=== PATIENT | female | born 1970 | race Caucasian/White ===

== ENCOUNTER → 2016-12-16 | Outpatient (CLI) | payer BC ==
[2016-12-16 18:03] LABS: Anisocytosis Slight; Basophils % (A) 1 %; CH 29.8; CHCM 31.6; Eosinophils # (A) 0.1 k/uL (0-0.7); Eosinophils % (A) 2 %; HCT 39.2 % (34.0-46.0); HDW 2.78; HGB 12.5 gm/dL (11.4-16.0); Hypochromasia Slight; Luc # (Auto) 0.18; Luc % (Auto) 3; Lymphocytes # (A) 1.1 k/uL (1.0-4.8); Lymphocytes % (A) 19 %; MCH 30.2 pg (25.0-35.0); MCHC 31.9 g/dL (31.0-37.0); MCV 94.9 fL (80.0-100.0); Mean Platelet Volume 9.5; Monocytes # (A) 0.6 k/uL (0-1.0); Monocytes % (A) 10 %; Neutrophils % (A) 66 %; RBC 4.13 m/uL (3.80-5.40); RDW 16.7 % (11.5-15.5); WBC 6.1 k/uL (3.8-10.6); WBC (Perox) 6.22
== END | disposition home or self-care (01) ==
LOC: LABPAT 17:20
PROVIDERS: ATTEND Obstetrics & Gynecology Obstetrics
DX: Z01.812 Encounter for preprocedural laboratory examination (principal); N92.0 Excessive and frequent menstruation with regular cycle; D64.9 Anemia, unspecified
CPT/HCPCS: 85025

== ENCOUNTER 2016-12-19 11:27 | Day surgery (SDC) | payer BC ==
[2016-12-17 11:09] VITALS: BMI 50.8
[~2016-12-19 11:27] MED LIST: DEXAMETHASONE SOD PHOSPHATE 10 MG/ML 1 ML VIAL IV ONE; HYDROmorphone 0.5 MG/0.5 ML SYRINGE IVP PRN; LACTATED RINGERS 1,000 ML IV SCH; MIDAZOLAM 2 MG/2 ML VIAL IV PRN; ONDANSETRON 4 MG/2 ML VIAL IVP ONE; Pre Op ABX Message 1 EACH MISC MISCELLANE ONE; SCOPOLAMINE 1.5MG/72HR PATCH TRANSDERM ONE
[2016-12-19] MEDS ORDERED: LIDOCAINE 1% 20 ML VIAL (10MG/ML) FOR IV START INTRADERMA ONE (12:15)
[2016-12-19] MEDS ORDERED: PROPOFOL 10 MG/ML 20 ML VIAL IV ONE (12:32)
[2016-12-19] MEDS ORDERED: LIDOCAINE 1% INJ 10MG/ML (20 ML MDV) ONE (12:32)
[2016-12-19] MEDS ORDERED: SUCCINYLCHOLINE CHLORIDE 100 MG/5 ML SYR IV ONE (12:32)
[2016-12-19] MEDS ORDERED: GLYCOPYRROLATE 0.2 MG/ML 2 ML VIAL ONE (12:32)
[2016-12-19] MEDS ORDERED: fentaNYL (PF) 50 MCG/ML 2 ML AMP ONE (12:32)
[2016-12-19] MEDS ORDERED: MIDAZOLAM 2 MG/2 ML VIAL ONE (12:32)
[2016-12-19 12:38] LABS: INR 1.1 (<1.2); Prothrombin Time 11.3 sec (9.0-12.0)
[2016-12-19] MEDS ORDERED: ACETAMINOPHEN IV (For NPO) 1,000 MG in EMPTY BAG 1 BAG IVPB ONE (13:01)
[2016-12-19] MEDS ORDERED: Acetaminophen-Codeine 300-30mg TAB PO PRN ×2 (13:01)
[2016-12-19] MEDS ORDERED: IBUPROFEN 600 MG TAB PO PRN (13:01)
[2016-12-19] MEDS ORDERED: FLUTICASONE 50MCG/SPRAY NASAL 16GM EA NOSTRIL PRN (13:03)
--- NOTE | 2016-12-19 13:10 | P.OP ---
Date of Procedure: 12/19/16 Preoperative Diagnosis: menorrhagia, anemia Postoperative Diagnosis: same Procedure(s) Performed: Elías NEVAREZ EA novlena Anesthesia: CJ Surgeon: Brittany Liang Estimated Blood Loss (ml): 10 IV fluids (ml): 400 Urine output (ml): 75 Pathology: other (Endometrial curettings) Condition: stable Disposition: PACU Indications for Procedure: This is a very pleasant 46-year-old female with complaints of heavy menstrual bleeding, anemia. She elected treatment with endometrial ablation wrists were reviewed in the office including but not limited to uterine perforation, bleeding, infection patient stated understanding and informed consent was obtained Operative Findings: Normal appearing endometrial cavity was noted proliferative endometrium. Description of Procedure: Patient was taken to the operating room where general anesthesia was obtained without difficulty by the anesthesia department. She was then prepped and draped in normal sterile fashion in the dorsal lithotomy position. A red rubber catheter was then used to drain the bladder of clear yellow urine. A weighted speculum was placed in the posterior vaginal vault the anterior lip of the cervix was grasped with a single-tooth tenaculum. The endocervical canal was then dilated to approximately 17, the hysteroscope was placed through the cervix and toward the endometrial cavity. On inspection of the patient's endometrial cavity a proliferative endometrium was noted no fibroids or polyps were appreciated. The hysteroscope was removed along with a hysterotomy hysteroscopy fluid. A sharp curettage then performed until gritty texture was noted in all 4 quadrants of the endometrial cavity. This was sent to pathology for analysis. The NovaSure device was then inserted into the endometrial cavity and operated per pediatric physical therapy assistant's instructions. With a power of 69 for 1 minute 45 seconds. After the cycle was complete the device was allowed to cool slightly and was removed without difficulty. The single-tooth tenaculum was taken off of the anterior lip of the cervix hemostasis was appreciated. All instruments were removed from the vaginal vault, all counts were correct 2. patient tolerated procedure well and was taken to the recovery room awake and in stable condition
[2016-12-19 13:20] VITALS: TEMP 97.4
[2016-12-19 14:14] VITALS: RESP 18
[2016-12-19 14:35] VITALS: BP 139/91; PULSE 76
[2016-12-19] MEDS ORDERED: NON-FORMULARY DRUG (Glucosamine Sulfate 2,000 MG) PO SCH (21:00)
[2016-12-20] MEDS ORDERED: NON-FORMULARY DRUG (Omeprazole 20 MG) PO SCH (07:30)
[2016-12-20] MEDS ORDERED: NON-FORMULARY DRUG (Cyanocobalamin (Vitamin B-12) [Vitamin B-12] 1,000 MCG) PO SCH (09:00)
[2016-12-20] MEDS ORDERED: PARoxetine 20 MG TAB PO SCH (09:00)
[2016-12-20] MEDS ORDERED: VITAMIN E (DL,TOCOPHERYL ACET) 400 UNIT CAP PO SCH (09:00)
[2016-12-20] MEDS ORDERED: NON-FORMULARY DRUG (Omega-3 Fatty Acids/Fish Oil [Fish Oil 1,000 Mg Softgel] 1 EACH) PO SCH (09:00)
[2016-12-20] MEDS ORDERED: GABAPENTIN 400 MG CAP PO SCH (09:00)
[2016-12-20] MEDS ORDERED: IRON POLYSACCHARIDES COMPLEX 150 MG CAP PO SCH (09:00)
[2016-12-20] MEDS ORDERED: CHOLECALCIFEROL 1,000 UNIT TAB PO SCH (09:00)
[2016-12-20] MEDS ORDERED: NON-FORMULARY DRUG (Fexofenadine Hcl [Allegra Allergy] 180 MG) PO SCH (09:00)
== END 2016-12-19 14:51 | disposition home or self-care (01) ==
LOC: OR 11:27
PROVIDERS: ATTEND Obstetrics & Gynecology Obstetrics
DX: N84.0 Polyp of corpus uteri (principal); N92.0 Excessive and frequent menstruation with regular cycle; D64.9 Anemia, unspecified; K21.9 Gastro-esophageal reflux disease without esophagitis; J30.9 Allergic rhinitis, unspecified; Z68.43 Body mass index [BMI] 50.0-59.9, adult; E66.9 Obesity, unspecified; Z79.899 Other long term (current) drug therapy; Z87.891 Personal history of nicotine dependence; Z86.718 Personal history of other venous thrombosis and embolism; Z79.01 Long term (current) use of anticoagulants
CPT/HCPCS: 58563; 81025; 88305; 85610; J2250; J1100; J2405; J2001; J3010; J0131; J0330; J2704

== ENCOUNTER → 2018-03-19 | Outpatient (CLI) | payer BC ==
--- NOTE | 2018-03-19 13:55 | CONS ---
CONSULTATION DATE OF SERVICE: 03/19/2018 This 47-year-old lady has been evaluated in the sleep center for possible obstructive sleep apnea-hypopnea syndrome. HISTORY OF PRESENT ILLNESS/SLEEP WAKE EVALUATION: Patient usual sleep schedule from 1 to 2 a.m. until 9 to 10 a.m. on weekdays and from about 1 to 2 a.m. until 11 a.m. to 12 p.m. on weekends. She does have problem with falling asleep, has TV set in bedroom, prefers to sleep on the stomach position. She has loud snoring according to her and also according to him, she has episodes of stopped breathing during the sleep. The patient has symptoms of restless legs while falling asleep. She has jerking and kicking movements at night. Positive history of sleep talking and grinding teeth. In the morning, patient wakes up tired, has difficulties to pay attention, falling asleep during the day, has problems with memory, concentration, irritability, anxiety. [place] Sleepiness Scale significantly increased to 18. The patient takes up to 2 naps a day, usually around 5 p.m. No vivid dreams during naps. No history of hypnagogic hallucinations, sleep paralysis or cataplexy. PAST MEDICAL HISTORY: Positive for anxiety and acid reflux. Recently had been diagnosed with alpha 1 antitrypsin deficiency, tremor, thrombosis. PAST SURGICAL HISTORY: Uterus ablation, spleen renal artery shunt, bilateral knee surgeries, cholecystectomy. MEDICATIONS: Fexofenadine, gabapentin, lactulose, magnesium supplement, omeprazole, paroxetine, iron supplement, ,vitamin D and E supplements. SOCIAL HISTORY: Positive for smoking in the past about 1 pack for 10 years, quit around 20 years ago. Alcohol consumption none. FAMILY HISTORY: Hypertension, arthritis, lung problems, sleep apnea, snoring, insomnia, acid reflux, liver problem, diabetes, anemia, restless legs. REVIEW OF SYSTEMS: Multiple awakenings from sleep, snoring, episodes of stopped breathing during the sleep, sleepiness during the day. PHYSICAL EXAMINATION: During physical exam, lady without distress. VITAL SIGNS: BP 147/82, HR 66, RR 14, height 5 feet 0 inches, weight 273.8, body mass index 53.3, temperature 98.3, oxygen saturation at room air 97% HEENT: PERRLA, EOMI. Oropharynx extremely low position of soft palate. Mallampati IV. NECK: 14-1/2 inches in circumference. LUNGS: Clear to percussion and to auscultation. Good air exchange. No wheezing or rhonchi. HEART: A very soft systolic murmur on pulmonary artery. ABDOMEN: Obese. Large horizontal scar on the belly. EXTREMITIES: No clubbing or cyanosis. [employer]: Awake, alert, and oriented X3. Cranial nerves 2 to 7 intact. There is no fasciculation or atrophy. noted. No focal deficits observed. IMPRESSION: 1. Snoring, witnessed episodes of stopped breathing during the sleep, extremely low position of soft palate, sleepiness, obstructive sleep apnea-hypopnea syndrome. 2. Restless legs syndrome. 3. Significant amount of movements during the sleep with kicking and twitching, periodic limb movements. 4. Significant excessive daytime sleepiness with 2 naps during the day. 5. Morbid obesity, body mass index 53.3. 6. Anxiety. 7. Acid reflux. 8. Status post bilateral knee surgery. 9. Alpha 1 antitrypsin deficiency. 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 11.Status post cholecystectomy. 12.Status post uterus ablation. 13.History of iron deficiency anemia. PLAN: 1. Polysomnography for evaluation of patient's breathing during sleep and also to check for periodic limb movements. 2. CPAP/BiPAP titration if sleep study confirms obstructive sleep apnea-hypopnea syndrome. 3. Preferable position during sleep on the side. 4. No driving if patient feels any sleepiness. 5. I will see patient for follow up visit to explain results of testing and following plan. Thank you very much for referring this patient for consultation. Sincerely, Kentrell Rosen MD, PhD, FAASM Diplomat of [place] [employer] Specialties [place] [employer] Sleep Tech of [facility] [place] MMODL / IJN: [id number] /
== END ==
LOC: SLEEP 11:26
PROVIDERS: ATTEND Internal Medicine
DX: G47.33 Obstructive sleep apnea (adult) (pediatric) (principal); E66.01 Morbid (severe) obesity due to excess calories; F41.9 Anxiety disorder, unspecified; K21.9 Gastro-esophageal reflux disease without esophagitis; E88.01 Alpha-1-antitrypsin deficiency; G25.81 Restless legs syndrome; Z90.49 Acquired absence of other specified parts of digestive tract; Z86.2 Personal history of diseases of the blood and blood-forming organs and certain disorders involving the immune mechanism; Z98.890 Other specified postprocedural states; Z87.898 Personal history of other specified conditions; Z68.43 Body mass index [BMI] 50.0-59.9, adult; Z99.89 Dependence on other enabling machines and devices; Z87.891 Personal history of nicotine dependence; Z79.899 Other long term (current) drug therapy
CPT/HCPCS: 99211

== ENCOUNTER → 2018-07-02 | Outpatient (CLI) | payer BC ==
--- NOTE | 2018-07-02 13:14 | SFUN ---
SLEEP CENTER FOLLOW UP NOTE DATE OF SERVICE: 07/02/2018 This 47-year-old lady had been followed in sleep center to discuss results of the sleep study and following plan. Polysomnogram showed minimal respiratory abnormalities with the apnea-hypopnea index 4.5 without significant oxygen desaturation. Oxygen level was below normal only for 0.6 minutes. At the same time in REM sleep, Apnea-hypopnea index was slightly increased to 11.8. EMG showed 20.0 periodic limb movements per hour of 2.1 microarousals per hour and patient report some discomfort in her legs while she is falling asleep and also during the night. Multiple sleep latency test on the following day consisted from 5 naps. Mean sleep latency was short 6.7 minutes. The patient fell asleep on all naps. No sleep onset REM periods have been documented. [place] Sleepiness Scale today significantly increased to 16. MEDICATIONS: Fexofenadine, gabapentin, magnesium, omeprazole, paroxetine, iron supplement. PHYSICAL EXAMINATION: During physical exam, patient in no distress. VITAL SIGNS: BP 129/82, HR 82, RR 18, height 5 feet, weight 281.6 pounds, body mass index 54.8, temperature 98.3, oxygen saturation at room air 96%. HEENT: PERRLA, EOMI. Oropharynx low position of soft palate. NECK: Supple, no JVD. Thyroid is not palpable. LUNGS: Clear to percussion and to auscultation. Good air exchange. No wheezing or rhonchi. HEART: S1, S2 regular. No murmurs, gallops, or rubs. ABDOMEN: Obese. EXTREMITIES: No clubbing or cyanosis. CHAR FILTER OPERATOR HELPER: Awake, alert, and oriented X3. Cranial nerves 2 to 7 intact. There is no fasciculation or atrophy. noted. No focal deficits observed. IMPRESSION: 1. Very minimal respiratory abnormalities during the sleep study in normal range by today's criteria but still apnea-hypopnea index slightly increased in REM sleep. 2. Mild periodic limb movements have been documented during the sleep study 20 times per hour with 2.1 microarousals per hour. 3. Multiple sleep latency test confirmed sleepiness. Mean sleep latency short 6.7 minutes. No sleep onset REM periods have been documented. 4. Obesity. 5. Anxiety. 6. Acid reflux. 7. Status post bilateral knee surgery. 8. Alpha 1 antitrypsin deficiency. 9. Status post spleen renal shunt. 10.Status post cholecystectomy. 11.Status post uterus ablation. 12.History of iron deficiency anemia. PLAN: 1. I will start the patient with treatment with Mirapex 0.125 mg 1 to 2 tablets at bedtime for treatment of restless legs syndrome and periodic limb movements. 2. I will see patient for followup visit in 2 to 3 months to evaluate her clinical response and treatment and at that time we will make a decision about the necessity to use any additional daytime medication for improving alertness. 3. Losing weight. 4. Preferable position during the sleep on the side. 5. No driving if feeling sleepiness. Thank you very much for allowing me to participate in management of your patient. Sincerely, Kentrell Rosen MD, PhD, FAASM Diplomat of [place] [employer] [place] [employer] Machine Operator of [facility] [place] MMODL / WESTN: [id number] /
== END ==
LOC: SLEEP 11:31
PROVIDERS: ATTEND Internal Medicine
DX: G47.61 Periodic limb movement disorder (principal); E66.9 Obesity, unspecified; F41.9 Anxiety disorder, unspecified; K21.9 Gastro-esophageal reflux disease without esophagitis; E88.01 Alpha-1-antitrypsin deficiency; D50.9 Iron deficiency anemia, unspecified; Z98.890 Other specified postprocedural states; Z90.49 Acquired absence of other specified parts of digestive tract; Z96.89 Presence of other specified functional implants; Z79.899 Other long term (current) drug therapy; Z68.43 Body mass index [BMI] 50.0-59.9, adult

== ENCOUNTER → 2019-10-12 | Outpatient (CLI) | payer BC | END | disposition home or self-care (01) | LOC: LABWHC1 11:49 | PROVIDERS: ATTEND Internal Medicine | DX: U07.1 COVID-19 (principal) | CPT/HCPCS: U0003; C9803 ==

== ENCOUNTER 2022-10-19 21:14 | Emergency (ER) | payer BC ==
[2022-10-19 21:23] VITALS: BP 139/84; PULSE 91; RESP 18; TEMP 98.4
[2022-10-19] MEDS ORDERED: SODIUM CHLORIDE 0.9% 500 ML 500 ML IV STA (21:44)
[2022-10-19] MEDS ORDERED: MORPHINE SULFATE 4 MG/ML SYRINGE IVP STA ×2 (21:46→22:58)
[2022-10-19 22:18] LABS: Basophils % (A) 0 %; Eosinophils # (A) 0.2 k/uL (0-0.7); Eosinophils % (A) 2 %; HCT 38.6 % (34.0-46.0); HGB 13.5 gm/dL (11.4-16.0); Lymphocytes % (A) 11 %; MCH 33.2 pg (25.0-35.0); MCHC 34.9 g/dL (31.0-37.0); MCV 95.3 fL (80.0-100.0); Mean Platelet Volume 9.1; Monocytes # (A) 1.1 k/uL (0-1.0); Monocytes % (A) 13 %; Neutrophils # (A) 6.1 k/uL (1.3-7.7); Neutrophils % (A) 71 %; Platelet Count 153 k/uL (150-450); RBC 4.05 m/uL (3.80-5.40); WBC 8.6 k/uL (3.8-10.6)
[2022-10-19 22:28] LABS: ALT 54 U/L (4-34); AST 57 U/L (14-36); African American GFR (CKD) >90 (>60 ml/min/1.73 sqM); Albumin 3.7 g/dL (3.5-5.0); Alkaline Phosphatase 112 U/L (38-126); Anion Gap 6 mmol/L; Blood Urea Nitrogen 22 mg/dL (7-17); Calcium 9.6 mg/dL (8.4-10.2); Carbon Dioxide 26 mmol/L (22-30); Chloride 103 mmol/L (98-107); Glucose 105 mg/dL (74-99); Non-African American GFR(CKD) 84 (>60 ml/min/1.73 sqM); Potassium 4.1 mmol/L (3.5-5.1); Sodium 135 mmol/L (137-145); Total Bilirubin 2.1 mg/dL (0.2-1.3); Total Protein 7.3 g/dL (6.3-8.2)
--- NOTE | 2022-10-19 22:32 | CT ---
EXAMINATION TYPE: CT brain wo con DATE OF EXAM: 10/19/2022 COMPARISON: None INDICATION: Trauma DLP: 1172.4 mGycm, Automated exposure control for dose reduction was used. CONTRAST: None CT of the brain is performed utilizing 3 mm thick sections through the posterior fossa and 3 mm thick sections through the remaining calvarium. Study is performed within 24 hours of arrival to the hosp ital. No abnormal hyperdensity is present to suggest an acute intracranial hemorrhage. No mass lesion is evident. No acute infarcts are evident. Ventricles and sulci are appropriate for the patient age. Small retention cyst within the left posterior lateral maxillary sinus. Paranasal sinuses are otherwi se clear. No acute fractures are evident. Mastoid air cells are clear. Note is made to left septal de viation. IMPRESSIONS: 1. No acute posttraumatic changes. Follow up MRI can be performed as clinically indicated
--- NOTE | 2022-10-19 22:53 | XR ---
EXAMINATION TYPE: XR knee limited LT DATE OF EXAM: 10/19/2022 COMPARISON: None HISTORY: Fall, pain TECHNIQUE: 2 view left knee FINDINGS: There is been a prior medial compartment prosthesis placement. Some mild narrowing lateral compartment joint space is present. No acute fractures are evident. Joint effusion is evident. Follow up exams can be performed 7-10 days from acute trauma for continued pain. IMPRESSION: 1. No acute osseous abnormality
--- NOTE | 2022-10-19 22:55 | XR ---
EXAMINATION TYPE: XR pelvis AP view DATE OF EXAM: 10/19/2022 COMPARISON: None HISTORY: Trauma fall pain TECHNIQUE: AP pelvis FINDINGS: Femoral heads articulate with the acetabulum. Sacroiliac joints and symphysis pubis appear intact. No acute fractures are evident. Normal bowel gas is present IMPRESSION: 1. No acute osseous abnormality AP pelvis
--- NOTE | 2022-10-19 22:56 | XR ---
EXAMINATION TYPE: XR humerus LT DATE OF EXAM: 10/19/2022 COMPARISON: None HISTORY: Fall, pain TECHNIQUE: 2 view left humerus FINDINGS: There is a long oblique fracture with additional small fragment at the fracture site within the mid diaphysis left humerus. Alignment and positioning appears relatively preserved. An additiona l longitudinal fracture line extends towards the neck of the humerus. IMPRESSION: 1. Comminuted fracture proximal to mid humerus diaphysis.
--- NOTE | 2022-10-19 22:56 | XR ---
EXAMINATION TYPE: XR chest 1V portable DATE OF EXAM: 10/19/2022 COMPARISON: None INDICATION: Trauma fall pain TECHNIQUE: Single frontal view of the chest is obtained. FINDINGS: The heart size is enlarged. The pulmonary vasculature is normal. The lungs are clear. IMPRESSION: 1. No acute pulmonary process. 2. Cardiomegaly
[2022-10-19 23:50] LABS: INR 1.1 (<1.2); Prothrombin Time 11.9 sec (9.0-12.0)
[2022-10-19 23:53] LABS: Partial Thromboplastin Time 20.9 sec (22.0-30.0)
[2022-10-20] MEDS ORDERED: MORPHINE SULFATE 4 MG/ML SYRINGE IVP STA (00:25)
--- NOTE | 2022-10-20 01:14 | ED ---
General Adult HPI - General Chief complaint: Extremity Injury, Upper Stated complaint: Fall Time Seen by Provider: 10/19/22 21:24 Source: patient, RN notes reviewed, old records reviewed Mode of arrival: EMS - History of Present Illness Initial comments: Patient is a 52-year-old female who presents emergency Department after mechanical fall. States she lost her balance and fell into a wall hitting her head on the wall and landed on the ground on her outstretched time. Primarily complaining of left upper arm pain but is also complaining of some mild left knee pain, left hip pain. Did strike her head but denies any injuries. Does not believe she lost consciousness. His no longer on blood thinners. His no other acute complaints at this time. Denies chest pain or shortness of breath. Denies nausea or vomiting. Endorses pain primarily in the left upper arm. No sensory deficits. Weakness of the left upper extremity secondary to the pain. Presents for further evaluation at this time. Denies any back pain. - Related Data Home Medications Medication Instructions Recorded Confirmed Cholecalciferol [Vitamin D3] 4,000 unit PO DAILY 12/17/16 12/19/16 Cyanocobalamin (Vitamin B-12) 1,000 mcg PO DAILY 12/17/16 12/19/16 [Vitamin B-12] Fexofenadine HCl [Ann Marie Allergy] 180 mg PO DAILY 12/17/16 12/19/16 Fluticasone Nasal [place] [Flonase 2 spr EA NOSTRIL DAILY PRN 12/17/16 12/19/16 Nasal [place]] Gabapentin [Neurontin] 400 mg PO QAM 12/17/16 12/19/16 Gabapentin [Neurontin] 800 mg PO HS 12/17/16 12/19/16 Glucosamine Sulfate 2,000 mg PO BID 12/17/16 12/19/16 Iron Polysaccharides Complex 150 mg PO DAILY 12/17/16 12/19/16 [Niferex Forte 150] [place]-3 Fatty Acids/Fish Oil [Fish 1 each PO DAILY 12/17/16 12/19/16 Oil 1,000 mg Softgel] Omeprazole [PriLOSEC] 20 mg PO AC-BRKFST 12/17/16 12/19/16 PARoxetine [Paxil] 20 mg PO DAILY 12/17/16 12/19/16 Vitamin E (Dl,Tocopheryl Acet) 400 unit PO DAILY 12/17/16 12/19/16 [Vitamin E] Warfarin [Coumadin] 5 mg PO DAILY 12/17/16 12/19/16 Previous Rx's Medication Instructions Recorded Cyclobenzaprine [Flexeril] 5 mg PO TID PRN 5 Days #15 tablet 10/20/22 HYDROcodone/APAP 5-325MG [[place] 1 tab PO Q6HR PRN 3 Days #12 tab 10/20/22 5-325] Allergies Allergy/AdvReac Type Severity Reaction Status Date / Time No Known Allergies Allergy Verified 10/19/22 21:23 Review of Systems ROS Statement: Those systems with pertinent positive or pertinent negative responses have been documented in the HPI. Review of Systems: CONST: Denies fever EYES: Denies blurry vision ENT: Denies nasal congestion C/V: Denies Chest pain RESP: Denies shortness of breath GI: Denies abdominal pain : Denies dysuria SKIN: Denies rash. MSK: Endorses joint pain NEURO: Denies headache ROS Other: All systems not noted in ROS Statement are negative. 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 HAS ENLARGED SPLEEN, HAS INTERNAL NERVE PAIN D/T THIS. HEAVY & IRREG MENSES, ANEMIA; HAD IRON INFUSIONS X2 11/28, 12/05/16. History of Any Multi-Drug Resistant Organisms: None Reported Past Surgical History: Cholecystectomy, Joint Replacement Additional Past Surgical History / Comment(s): PARTIAL MATTHEW KNEE REPLACEMENT. Past Anesthesia/Blood Transfusion Reactions: Motion Sickness, Postoperative Nausea & Vomiting (PONV) Past Psychological History: Anxiety Smoking Status: Former smoker Past Alcohol Use History: None Reported Past Drug Use History: None Reported - Past Family History Mother Family Medical History: Blood Disorder Additional Family Medical History / Comment(s): LEIDEN FACTOR Sister(s) Family Medical History: Blood Disorder Additional Family Medical History / Comment(s): LEIDEN FACTOR General Exam - General Exam Comments Initial Comments: General: Appears in moderate distress secondary to pain. HEAD: Normal with no signs of head trauma. Negative saldana sign. Negative rac coon eyes. EYES: PERRLA, EOMI, conjunctiva normal, no discharge. ENT: Hearing grossly intact, normal oropharynx. RESPIRATORY: Clear breath sounds bilaterally. No wheezes, rales, or rhonchi. C/V: Regular rate and rhythm. S1 and S2 auscultated, no edema, peripheral pulses 2+ and intact throughout ABD: Abd is soft, nontender, nondistended EXT: Decreased range of motion on the left upper extremity secondary to pain. Concern for humerus fracture. Difficult to ascertain if there is an obvious deformity to the patient's body habitus. Neurovascular intact distal to the injury. Splint is in place from EMS. Pelvis is stable. No midline cervical, thoracic, lumbar spine tenderness to palpation. Mild tenderness palpation over the left hip and left knee.left Median, radial, ulnar nerves appear intact. Strong 2+ pulses in the radial artery on the left. SKIN: No rashes or lesions observed on exposed skin. NEURO: Alert and oriented x 4. Cranial nerves II-XII intact. No focal sensory o r strength deficits. GCS of 15. Course Vital Signs 10/19/22 21:18 Temperature 98.4 F Pulse Rate 91 Respiratory 18 Rate Blood Pressure 139/84 O2 Sat by Pulse 96 Oximetry Procedures - Orthopedic Splinting/Casting Injury #1 Side: left Upper Extremity Injury Location: long arm Upper Extremity Immobilizer: sling/shoulder immobilizer Medical Decision Making - Medical Decision Making Was pt. sent in by a medical professional or institution ([facility], [employer], urgent care, hospital, or half-way...) When possible be specific @ -No Did you speak to anyone other than the patient for history (EMS, parent, family, police, friend...)? What history was obtained from this source @ -No Did you review nursing and triage notes (agree or disagree)? Why? @ -I reviewed and agree with nursing and triage notes Were old charts reviewed (outside hosp., previous admission, EMS record, old EKG, old radiological studies, urgent care reports/EKG's, half-way records)? Report findings @ -No old charts were reviewed Differential Diagnosis (chest pain, altered mental status, abdominal pain women, abdominal pain men, vaginal bleeding, weakness, fever, dyspnea, syncope, heada bubba, dizziness, GI bleed, back pain, seizure, CVA, palpatations, mental health, musculoskeletal)? @ -Differential Musculoskeletal Muscular strain, contusion, ligament sprain, fracture, arthritis, septic arthritis, bursitis, cellulitis, muscle spasm, nerve compression, DVT, arterial occlusion, herpes zoster, electrolyte abnormality, tumor.... This is not meant to be in all inclusive list EKG interpreted by me (3pts min.). @ -None done X-rays interpreted by me (1pt min.). @ -X-rays remarkable for left mid shaft comminuted humerus fracture. Remainder the plain films unremarkable for any obvious acute injury CT interpreted by me (1pt min.). @ -CT brain reveals no obvious acute intracranial process or injury. U/S interpreted by me (1pt. min.). @ -None done What testing was considered but not performed or refused? (CT, X-rays, U/S, labs)? Why? @ -None What meds were considered but not given or refused? Why? @ -None Did you discuss the management of the patient with other professionals (professionals i.e. , PA, [employer], lab, RT, psych nurse, social insurance specialist, immigration lawyer, teacher, county health officer, director of casework department)? Give summary @ -No Was smoking cessation discussed for >3mins.? @ -No Was critical care preformed (if so, how long)? @ -No Were there social determinants of health that impacted care today? How? (Homelessness, low income, unemployed, alcoholism, drug addiction, transportation, low edu. Level, literacy, decrease access to med. care, skilled nursing, rehab)? @ -No Was there de-escalation of care discussed even if they declined (Discuss DNR or withdrawal of care, Hospice)? DNR status @ -No What co-morbidities impacted this encounter? (DM, HTN, Smoking, COPD, CAD, Cancer, CVA, ARF, Chemo, Hep., AIDS, mental health diagnosis, sleep apnea, morbid obesity)? @ -None Was patient admitted / discharged? Hospital course, mention meds given and route, prescriptions, significant lab abnormalities, going to OR and other pertinent info. @ -Based on the patient's presentation and physical exam, I'm concerned for possible injury from the fall. We will obtain CT brain as well as plain films. Basic labs also be obtained. Patient was in agreement this plan. She was administered IV morphine for analgesic medications as well as a small fluid bolus. Imaging remarkable for a left comminuted midshaft humeral fracture. Patient's labs are remarkable for no obvious acute findings. I discussed results with the patient. She is given additional analgesic medications. Attempts at a co aptation splint were placed on the patient's left upper extremity although it is difficult secondary to her body habitus. She tolerated the procedure well. Neurovascular intact following the procedure. Placed in a sling. Instructions to follow up with orthopedics. She was in agreement this plan. I will provide the patient with a prescription for [place], Flexeril. I instructed the patient to follow up with their PCP in the next 1-3 days. I provided contact information for follow up with orthopedics. I explained that the patient should return to the emergency department if they experience any worsening symptoms. Strict return precautions were discussed with the patient. The patient expressed understanding of these instructions. I answered all questions that the patient had. The patient was discharged home in fair condition with their prescriptions and follow up information. Undiagnosed new problem with uncertain prognosis? @ -No Drug Therapy requiring intensive monitoring for toxicity (Heparin, Nitro, Insulin, Cardizem)? @ -No Were any procedures done? @ -Splinting Diagnosis/symptom? @ -Fall, left mid shaft comminuted humeral fracture Acute, or Chronic, or Acute on Chronic? @ -Acute Uncomplicated (without systemic symptoms) or Complicated (systemic symptoms)? @ -Complicated Side effects of treatment? @ -No Exacerbation, Progression, or Severe Exacerbation? @ -No Poses a threat to life or bodily function? How? (Chest pain, USA, CT, pneumonia, PE, COPD, DKA, ARF, appy, cholecystitis, CVA, Diverticulitis, Homicidal, Suicidal, threat to staff... and all critical care pts) @ -No - Lab Data Result diagrams: 10/19/22 22:09 10/19/22 22:09 Lab Results 10/19/22 10/19/22 10/19/22 Range/Units 22:09 22:09 23:08 WBC 8.6 (3.8-10.6) k/uL RBC 4.05 (3.80-5.40) m/uL Hgb 13.5 (11.4-16.0) gm/dL Hct 38.6 (34.0-46.0) % MCV 95.3 (80.0-100.0) fL MCH 33.2 (25.0-35.0) pg MCHC 34.9 (31.0-37.0) g/dL RDW 14.0 (11.5-15.5) % Plt Count 153 (150-450) k/uL MPV 9.1 Neutrophils % 71 % Lymphocytes % 11 % Monocytes % 13 % Eosinophils % 2 % Basophils % 0 % Neutrophils # 6.1 (1.3-7.7) k/uL Lymphocytes # 1.0 (1.0-4.8) k/uL Monocytes # 1.1 H (0-1.0) k/uL Eosinophils # 0.2 (0-0.7) k/uL Basophils # 0.0 (0-0.2) k/uL PT 11.9 (9.0-12.0) sec INR 1.1 (<1.2) APTT 20.9 L (22.0-30.0) sec Sodium 135 L (137-145) mmol/L Potassium 4.1 (3.5-5.1) mmol/L Chloride 103 (98-107) mmol/L Carbon Dioxide 26 (22-30) mmol/L Anion Gap 6 mmol/L BUN 22 H (7-17) mg/dL Creatinine 0.81 (0.52-1.04) mg/dL Est GFR (CKD-EPI)AfAm >90 (>60 ml/min/1.73 sqM) Est GFR (CKD-EPI)NonAf 84 (>60 ml/min/1.73 sqM) Glucose 105 H (74-99) mg/dL Calcium 9.6 (8.4-10.2) mg/dL Total Bilirubin 2.1 H (0.2-1.3) mg/dL AST 57 H (14-36) U/L ALT 54 H (4-34) U/L Alkaline Phosphatase 112 (38-126) U/L Total Protein 7.3 (6.3-8.2) g/dL Albumin 3.7 (3.5-5.0) g/dL Disposition Clinical Impression: Left humeral fracture, Fall Disposition: HOME SELF-CARE Condition: Fair Instructions (If sedation given, give patient instructions): Arm Fracture in Adults (ED) Prescriptions: Cyclobenzaprine [Flexeril] 5 mg PO TID PRN 5 Days #15 tablet PRN Reason: Pain HYDROcodone/APAP 5-325MG [[place] 5-325] 1 tab PO Q6HR PRN 3 Days #12 tab PRN Reason: Pain Is patient prescribed a controlled substance at d/c from ED?: Yes When asked, does pt state using other controlled substances?: Yes If prescribed controlled substance>3 days was MAPS reviewed?: Prescribed <3 Days If opioid is for acute pain is fill amount 7 days or less?: Yes If Rx opioid, was Start Talking consent form obtained?: Yes Referrals: Nato Beck MD [Primary Care Provider] - 1-2 days Jair Baker MD [Medical Doctor] - 1-2 days Time of Disposition: 01:00
[2022-10-20] MEDS ORDERED: ACET/COD 300 MG/30 MG STARTER PACK 6 TAB BTL PO STA (01:33)
== END 2022-10-20 01:43 | disposition home or self-care (01) ==
LOC: EC 21:14
DX: S42.202A Unspecified fracture of upper end of left humerus, initial encounter for closed fracture (principal); I51.7 Cardiomegaly; K21.9 Gastro-esophageal reflux disease without esophagitis; Z86.59 Personal history of other mental and behavioral disorders; Z87.891 Personal history of nicotine dependence; Z79.899 Other long term (current) drug therapy; W18.09XA Striking against other object with subsequent fall, initial encounter
CPT/HCPCS: 99285; 96374; 96376 ×2; 96361 ×2; 36415; 80053; 85025; 85610; 85730; 72170; 73060; 73560; 71045; 70450; J2270 ×2

== ENCOUNTER 2023-12-05 14:16 | Inpatient (IN) | payer BC, MEDICARE ==
[2023-12-05] MEDS: SODIUM CHLORIDE 0.9% 500 ML 500 ML IV ONE ×2 (14:51→17:25)
[2023-12-05 15:08] LABS: Anisocytosis Slight; HCT 31.8 % (34.0-46.0); HGB 10.1 gm/dL (11.4-16.0); Hypochromasia Moderate; MCH 27.4 pg (25.0-35.0); MCHC 31.9 g/dL (31.0-37.0); MCV 85.8 fL (80.0-100.0); Mean Platelet Volume 8.9; Platelet Count 149 k/uL (150-450); RBC 3.71 m/uL (3.80-5.40); RDW 18.5 % (11.5-15.5); WBC 5.2 k/uL (3.8-10.6)
--- NOTE | 2023-12-05 15:09 | ED ---
General Adult HPI - General Chief complaint: Altered Mental Status Stated complaint: AMS Time Seen by Provider: 12/05/23 14:19 Source: EMS, RN notes reviewed, old records reviewed Mode of arrival: EMS Limitations: altered mental status - History of Present Illness Initial comments: 53-year-old female with reported history of liver failure currently on lactulose presenting after being altered with minor fall. The history is very limited paramedics report conflicting histories from patient's family members as to the duration the patient is altered. Patient herself is unable to give any history. Medications are not known. Paramedics did not note any external signs of trauma. Patient had normal blood sugar and stable blood pressure during trans port but complete assessment of vitals was not possible. - Related Data Home Medications Medication Instructions Recorded Confirmed Cyanocobalamin (Vitamin B-12) 1,000 mcg PO DAILY 12/17/16 12/05/23 [Vitamin B-12] Omeprazole [PriLOSEC] 20 mg PO DAILY 12/17/16 12/05/23 Bumetanide [Bumex] 1 mg PO BID 12/05/23 12/05/23 Cholecalciferol [Vitamin D3 (125 125 mcg PO HS 12/05/23 12/05/23 Mcg = 5000 Iu)] Fluticasone/Umeclidin/Vilanter 1 puff INHALATION RT-DAILY 12/05/23 12/05/23 [Trelegy Ellipta 100-62.5-25] Furosemide [Lasix] 40 mg PO DAILY 12/05/23 12/05/23 Gabapentin 300 mg PO TID 12/05/23 12/05/23 Ibuprofen [Motrin] 600 mg PO Q6H PRN 12/05/23 12/05/23 Lactulose 20 gm PO DAILY 12/05/23 12/05/23 Lactulose 20 gm PO DAILY PRN 12/05/23 12/05/23 Magnesium Oxide [Magox 400] 400 mg PO BID 12/05/23 12/05/23 Montelukast [Singulair] 10 mg PO DAILY 12/05/23 12/05/23 PARoxetine HCL [PARoxetine HCL Cr] 25 mg PO DAILY 12/05/23 12/05/23 Potassium Unknown Strength Otc 1 dose PO HS 12/05/23 12/05/23 Rifaximin [Xifaxan] 550 mg PO BID 12/05/23 12/05/23 Spironolactone [Aldactone] 25 mg PO DAILY 12/05/23 12/05/23 Allergies Allergy/AdvReac Type Severity Reaction Status Date / Time No Known Allergies Allergy Verified 12/05/23 16:22 Review of Systems ROS Statement: Those systems with pertinent positive or pertinent negative responses have been documented in the HPI. ROS Other: All systems not noted in ROS Statement are negative. Past Medical History Past Medical History: Blood Disorder, GERD/Reflux, Liver Disease Additional Past Medical History / Comment(s): PROTHROMBIN GENE MUTATION, HX BLOOD CLOT IN PORTAL VEIN X7 YEARS. HAS ENLARGED SPLEEN, HAS INTERNAL NERVE PAIN D/T THIS. HEAVY & IRREG MENSES, ANEMIA; HAD IRON INFUSIONS X2 11/28, 12/05/16. History of Any Multi-Drug Resistant Organisms: None Reported Past Surgical History: Cholecystectomy, Joint Replacement Additional Past Surgical History / Comment(s): PARTIAL MATTHEW KNEE REPLACEMENT. Past Anesthesia/Blood Transfusion Reactions: Motion Sickness, Postoperative Nausea & Vomiting (PONV) Past Psychological History: Anxiety Smoking Status: Former smoker Past Alcohol Use History: None Reported Past Drug Use History: None Reported - Past Family History Mother Family Medical History: Blood Disorder Additional Family Medical History / Comment(s): LEIDEN FACTOR Sister(s) Family Medical History: Blood Disorder Additional Family Medical History / Comment(s): LEIDEN FACTOR General Exam Limitations: altered mental status General appearance: in no apparent distress, lethargic Head exam: Present: atraumatic, normocephalic Eye exam: Present: normal appearance, PERRL Respiratory exam: Present: normal lung sounds bilaterally. Absent: respiratory distress, wheezes Cardiovascular Exam: Present: regular rate, normal rhythm GI/Abdominal exam: Present: soft. Absent: distended, tenderness, guarding Extremities exam: Present: normal inspection, normal capillary refill Neurological exam: Present: other (Patient moving all extremities symmetrically, patient does have a flapping tremor in bilateral hands). Absent: oriented X3 Course Vital Signs 12/05/23 12/05/23 12/05/23 14:20 14:57 16:00 Temperature 96.9 F L Pulse Rate 87 102 H 101 H Respiratory 20 20 20 Rate Blood Pressure 135/88 135/88 144/80 O2 Sat by Pulse 100 97 99 Oximetry 12/05/23 17:09 Temperature Pulse Rate 99 Respiratory 18 Rate Blood Pressure 129/86 O2 Sat by Pulse 99 Oximetry - Reevaluation(s) Reevaluation #1: 12/05/23 18:11 Further history from family does indicate that she has been confused over the past 4 days and has had bouts of intermittent confusion for some time. Medical Decision Making - Medical Decision Making Was pt. sent in by a medical professional or institution (, [facility], [employer], urgent care, hospital, or halfway...) When possible be specific @ -No Did you speak to anyone other than the patient for history (EMS, parent, family, police, friend...)? What history was obtained from this source @ -No Did you review nursing and triage notes (agree or disagree)? Why? @ -I reviewed and agree with nursing and triage notes Were old charts reviewed (outside hosp., previous admission, EMS record, old EKG, old radiological studies, urgent care reports/EKG's, halfway records)? Report findings @ -No old charts were reviewed Differential Diagnosis (chest pain, altered mental status, abdominal pain women, abdominal pain men, vaginal bleeding, weakness, fever, dyspnea, syncope, headache, dizziness, GI bleed, back pain, seizure, CVA, palpatations, mental health, musculoskeletal)? @ -Not applicable EKG interpreted by me (3pts min.). @ -Sinus rhythm rate of 84, PA interval 142, QRS duration 96, QTc [address] segment changes. X-rays interpreted by me (1pt min.). @ -Chest x-ray and pelvis x-ray negative for traumatic injury CT interpreted by me (1pt min.). @ -[CT brain, poor quality but no intracranial hemorrhage or mass effect. U/S interpreted by me (1pt. min.). @ -None done What testing was considered but not performed or refused? (CT, X-rays, U/S, labs)? Why? @ -None What meds were considered but not given or refused? Why? @ -None Did you discuss the management of the patient with other professionals (professionals i.e. [facility] Harkins, [employer], lab, RT, psych nurse, social media assistant, professor of social work, teacher, supply requirements officer, case folder)? Give summary @ -No Was smoking cessation discussed for >3mins.? @ -No Was critical care preformed (if so, how long)? @ -No Were there social determinants of health that impacted care today? How? (Homelessness, low income, unemployed, alcoholism, drug addiction, transportation, low edu. Level, literacy, decrease access to med. care, nursing home, rehab)? @ -No Was there de-escalation of care discussed even if they declined (Discuss DNR or withdrawal of care, Hospice)? DNR status @ -No What co-morbidities impacted this encounter? (DM, HTN, Smoking, COPD, CAD, Cancer, CVA, ARF, Chemo, Hep., AIDS, mental health diagnosis, sleep apnea, morbid obesity)? @ -[Hyperammonemia, liver failure Was patient admitted / discharged? Hospital course, mention meds given and route, prescriptions, significant lab abnormalities, going to OR and other pertinent info. @ -53-year-old female with worsening confusion over the past 4 days. Ammonia is elevated at 104. Patient is given IV fluids and lactulose in the emergency department. The remainder of her workup is unremarkable. She will be admitted for altered mental status secondary to hepatic encephalopathy and hyperammonemia. Case discussed with Dr. Cintron who will admit Undiagnosed new problem with uncertain prognosis? @ -[No Drug Therapy requiring intensive monitoring for toxicity (Heparin, Nitro, Insulin, Cardizem)? @ -No Were any procedures done? @ -No Diagnosis/symptom? @ -[Hepatic encephalopathy Acute, or Chronic, or Acute on Chronic? @Acute on chronic Uncomplicated (without systemic symptoms) or Complicated (systemic symptoms)? @ -Default Side effects of treatment? @ -No Exacerbation, Progression, or Severe Exacerbation? @ -No Poses a threat to life or bodily function? How? (Chest pain, USA, DC, pneumonia, PE, COPD, DKA, ARF, appy, cholecystitis, CVA, Diverticulitis, Homicidal, Suicidal, threat to staff... and all critical care pts) @ -Yes, worsening liver function, - Lab Data Result diagrams: 12/05/23 14:40 12/05/23 14:40 Lab Results 12/05/23 12/05/23 12/05/23 Range/Units 14:40 14:40 14:40 WBC 5.2 (3.8-10.6) k/uL RBC 3.71 L (3.80-5.40) m/uL Hgb 10.1 L (11.4-16.0) gm/dL Hct 31.8 L (34.0-46.0) % MCV 85.8 (80.0-100.0) fL MCH 27.4 (25.0-35.0) pg MCHC 31.9 (31.0-37.0) g/dL RDW 18.5 H (11.5-15.5) % Plt Count 149 L (150-450) k/uL MPV 8.9 Neutrophils % (Manual) 72 % Lymphocytes % (Manual) 14 % Monocytes % (Manual) 13 % Eosinophils % (Manual) 1 % Neutrophils # (Manual) 3.74 (1.3-7.7) k/uL Lymphocytes # (Manual) 0.73 L (1.0-4.8) k/uL Monocytes # (Manual) 0.68 (0-1.0) k/uL Eosinophils # (Manual) 0.05 (0-0.7) k/uL Nucleated RBCs 0 (0-0) /100 WBC Manual Slide Review Performed Hypochromasia Moderate Anisocytosis Slight PT 12.2 (10.0-12.5) sec INR 1.1 (<1.2) APTT 23.4 (22.0-30.0) sec VBG pH (7.31-7.41) VBG pCO2 (37-51) mmHg VBG HCO3 (24-28) mmol/L Sodium 140 (137-145) mmol/L Potassium 3.9 (3.5-5.1) mmol/L Chloride 110 H (98-107) mmol/L Carbon Dioxide 26 (22-30) mmol/L Anion Gap 4 mmol/L BUN 18 H (7-17) mg/dL Creatinine 0.57 (0.52-1.04) mg/dL Est GFR (CKD-EPI)AfAm >90 (>60 ml/min/1.73 sqM) Est GFR (CKD-EPI)NonAf >90 (>60 ml/min/1.73 sqM) Glucose 102 H (74-99) mg/dL Calcium 9.6 (8.4-10.2) mg/dL Total Bilirubin 1.8 H (0.2-1.3) mg/dL AST 44 H (14-36) U/L ALT 33 (4-34) U/L Alkaline Phosphatase 135 H (38-126) U/L Ammonia (<30) umol/L Total Protein 6.1 L (6.3-8.2) g/dL Albumin 3.5 (3.5-5.0) g/dL Urine Color Urine Appearance (Clear) Urine pH (5.0-8.0) Ur Specific [place] (1.001-1.035) Urine Protein (Negative) Urine Glucose (UA) (Negative) Urine Ketones (Negative) Urine Blood (Negative) Urine Nitrite (Negative) Urine Bilirubin (Negative) Urine Urobilinogen (<2.0) mg/dL Ur Leukocyte Esterase (Negative) Urine RBC (0-5) /hpf Ur Squamous Epith Cells (0-4) /hpf Urine Opiates Screen (NotDetected) Ur Oxycodone Screen (NotDetected) Urine Methadone Screen (NotDetected) Ur Barbiturates Screen (NotDetected) U Tricyclic Antidepress (NotDetected) Ur Phencyclidine Scrn (NotDetected) Ur Amphetamines Screen (NotDetected) U Methamphetamines Scrn (NotDetected) U Benzodiazepines Scrn (NotDetected) Urine Cocaine Screen (NotDetected) U Marijuana (THC) Screen (NotDetected) Serum Alcohol <10 mg/dL 12/05/23 12/05/23 12/05/23 Range/Units 14:40 15:02 15:53 WBC (3.8-10.6) k/uL RBC (3.80-5.40) m/uL Hgb (11.4-16.0) gm/dL Hct (34.0-46.0) % MCV (80.0-100.0) fL MCH (25.0-35.0) pg MCHC (31.0-37.0) g/dL RDW (11.5-15.5) % Plt Count (150-450) k/uL MPV Neutrophils % (Manual) % Lymphocytes % (Manual) % Monocytes % (Manual) % Eosinophils % (Manual) % Neutrophils # (Manual) (1.3-7.7) k/uL Lymphocytes # (Manual) (1.0-4.8) k/uL Monocytes # (Manual) (0-1.0) k/uL Eosinophils # (Manual) (0-0.7) k/uL Nucleated RBCs (0-0) /100 WBC Manual Slide Review Hypochromasia Anisocytosis PT (10.0-12.5) sec INR (<1.2) APTT (22.0-30.0) sec VBG pH 7.37 (7.31-7.41) VBG pCO2 47 (37-51) mmHg VBG HCO3 27 (24-28) mmol/L Sodium (137-145) mmol/L Potassium (3.5-5.1) mmol/L Chloride (98-107) mmol/L Carbon Dioxide (22-30) mmol/L Anion Gap mmol/L BUN (7-17) mg/dL Creatinine (0.52-1.04) mg/dL Est GFR (CKD-EPI)AfAm (>60 ml/min/1.73 sqM) Est GFR (CKD-EPI)NonAf (>60 ml/min/1.73 sqM) Glucose (74-99) mg/dL Calcium (8.4-10.2) mg/dL Total Bilirubin (0.2-1.3) mg/dL AST (14-36) U/L ALT (4-34) U/L Alkaline Phosphatase (38-126) U/L Ammonia 104 H (<30) umol/L Total Protein (6.3-8.2) g/dL Albumin (3.5-5.0) g/dL Urine Color Urine Appearance (Clear) Urine pH (5.0-8.0) Ur Specific [place] (1.001-1.035) Urine Protein (Negative) Urine Glucose (UA) (Negative) Urine Ketones (Negative) Urine Blood (Negative) Urine Nitrite (Negative) Urine Bilirubin (Negative) Urine Urobilinogen (<2.0) mg/dL Ur Leukocyte Esterase (Negative) Urine RBC (0-5) /hpf Ur Squamous Epith Cells (0-4) /hpf Urine Opiates Screen Not Detected (NotDetected) Ur Oxycodone Screen Not Detected (NotDetected) Urine Methadone Screen Not Detected (NotDetected) Ur Barbiturates Screen Not Detected (NotDetected) U Tricyclic Antidepress Not Detected (NotDetected) Ur Phencyclidine Scrn Not Detected (NotDetected) Ur Amphetamines Screen Not Detected (NotDetected) U Methamphetamines Scrn Not Detected (NotDetected) U Benzodiazepines Scrn Not Detected (NotDetected) Urine Cocaine Screen Not Detected (NotDetected) U Marijuana (THC) Screen Not Detected (NotDetected) Serum Alcohol mg/dL 12/05/23 Range/Units 15:53 WBC (3.8-10.6) k/uL RBC (3.80-5.40) m/uL Hgb (11.4-16.0) gm/dL Hct (34.0-46.0) % MCV (80.0-100.0) fL MCH (25.0-35.0) pg MCHC (31.0-37.0) g/dL RDW (11.5-15.5) % Plt Count (150-450) k/uL MPV Neutrophils % (Manual) % Lymphocytes % (Manual) % Monocytes % (Manual) % Eosinophils % (Manual) % Neutrophils # (Manual) (1.3-7.7) k/uL Lymphocytes # (Manual) (1.0-4.8) k/uL Monocytes # (Manual) (0-1.0) k/uL Eosinophils # (Manual) (0-0.7) k/uL Nucleated RBCs (0-0) /100 WBC Manual Slide Review Hypochromasia Anisocytosis PT (10.0-12.5) sec INR (<1.2) APTT (22.0-30.0) sec VBG pH (7.31-7.41) VBG pCO2 (37-51) mmHg VBG HCO3 (24-28) mmol/L Sodium (137-145) mmol/L Potassium (3.5-5.1) mmol/L Chloride (98-107) mmol/L Carbon Dioxide (22-30) mmol/L Anion Gap mmol/L BUN (7-17) mg/dL Creatinine (0.52-1.04) mg/dL Est GFR (CKD-EPI)AfAm (>60 ml/min/1.73 sqM) Est GFR (CKD-EPI)NonAf (>60 ml/min/1.73 sqM) Glucose (74-99) mg/dL Calcium (8.4-10.2) mg/dL Total Bilirubin (0.2-1.3) mg/dL AST (14-36) U/L ALT (4-34) U/L Alkaline Phosphatase (38-126) U/L Ammonia (<30) umol/L Total Protein (6.3-8.2) g/dL Albumin (3.5-5.0) g/dL Urine Color Colorless Urine Appearance Clear (Clear) Urine pH 8.0 (5.0-8.0) Ur Specific [place] 1.004 (1.001-1.035) Urine Protein Negative (Negative) Urine Glucose (UA) Negative (Negative) Urine Ketones Negative (Negative) Urine Blood Trace H (Negative) Urine Nitrite Negative (Negative) Urine Bilirubin Negative (Negative) Urine Urobilinogen <2.0 (<2.0) mg/dL Ur Leukocyte Esterase Negative (Negative) Urine RBC 1 (0-5) /hpf Ur Squamous Epith Cells <1 (0-4) /hpf Urine Opiates Screen (NotDetected) Ur Oxycodone Screen (NotDetected) Urine Methadone Screen (NotDetected) Ur Barbiturates Screen (NotDetected) U Tricyclic Antidepress (NotDetected) Ur Phencyclidine Scrn (NotDetected) Ur Amphetamines Screen (NotDetected) U Methamphetamines Scrn (NotDetected) U Benzodiazepines Scrn (NotDetected) Urine Cocaine Screen (NotDetected) U Marijuana (THC) Screen (NotDetected) Serum Alcohol mg/dL Disposition Clinical Impression: Delirium due to general medical condition, Hepatic encephalopathy Disposition: ADMITTED IP TO THIS [facility] Condition: Stable Is patient prescribed a controlled substance at d/c from ED?: No Referrals: Nato Beck MD [Primary Care Provider] - 1-2 days Time of Disposition: 18:16
[2023-12-05 15:12] LABS: VBG PH 7.37 (7.31-7.41)
[2023-12-05 15:15] LABS: INR 1.1 (<1.2); Partial Thromboplastin Time 23.4 sec (22.0-30.0); Prothrombin Time 12.2 sec (10.0-12.5)
[2023-12-05 15:17] LABS: Eosinophils # (M) 0.05 k/uL (0-0.7); Lymphocytes # (M) 0.73 k/uL (1.0-4.8); Monocytes # (M) 0.68 k/uL (0-1.0); Neutrophils # (M) 3.74 k/uL (1.3-7.7); Neutrophils % (M) 72 %; Nucleated Red Blood Cells 0 /100 WBC (0-0); Total Cells Counted 100
--- NOTE | 2023-12-05 15:47 | XR ---
EXAMINATION TYPE: XR chest 1V portable DATE OF EXAM: 12/05/2023 Comparison: 10/19/2022 Clinical History: 53-year-old female confusion, altered mental status Findings: The heart is moderately enlarged. Diffuse interstitial density and vascular prominence. Possible ora y patchy left suprahilar opacity. No pleural effusion. Partially visualized plate and screw fixation proximal left humerus. Impression: Moderate cardiomegaly and pulmonary vascular congestion. Either developing patchy pulmonary edema ren gerber infiltrate/pneumonia at the left suprahilar region. Correlate with symptoms. [facility], Workstation: [facility], 12/05/2023 3:45 PM
--- NOTE | 2023-12-05 15:50 | XR ---
EXAMINATION TYPE: XR pelvis AP view DATE OF EXAM: 12/05/2023 Comparison: 10/19/2022 Clinical History: 53-year-old female with pain after fall Findings: Diffuse osteopenia. Further limitation due to patient large body habitus. Assessment of the lower fem oral necks is further limited due to external rotation of the hips. The hip articulations appear constantin sly intact as do the bilateral SI joints and pubic symphysis. No displaced fracture is seen. Impression: Exam limited by large body habitus and positioning of the hips. No obvious displaced fracture is seen . [facility], Workstation: [email or web address], 12/05/2023 3:48 PM
[2023-12-05 15:51] LABS: ALT 33 U/L (4-34); AST 44 U/L (14-36); African American GFR (CKD) >90 (>60 ml/min/1.73 sqM); Albumin 3.5 g/dL (3.5-5.0); Alcohol <10 mg/dL; Alkaline Phosphatase 135 U/L (38-126); Anion Gap 4 mmol/L; Blood Urea Nitrogen 18 mg/dL (7-17); Calcium 9.6 mg/dL (8.4-10.2); Carbon Dioxide 26 mmol/L (22-30); Chloride 110 mmol/L (98-107); Glucose 102 mg/dL (74-99); Non-African American GFR(CKD) >90 (>60 ml/min/1.73 sqM); Potassium 3.9 mmol/L (3.5-5.1); Sodium 140 mmol/L (137-145); Total Bilirubin 1.8 mg/dL (0.2-1.3); Total Protein 6.1 g/dL (6.3-8.2)
--- NOTE | 2023-12-05 15:57 | CT ---
EXAMINATION TYPE: CT brain cspine wo con DATE OF EXAM: 12/05/2023 COMPARISON: Brain 10/19/2022 HISTORY: 53-year-old female with pain after fall/AMS, confusion CT DLP: 1872.8 mGycm Automated exposure control for dose reduction was used. Technique: Examination of the head was done in axial plane without intravenous contrast. Coronal and sagittal reconstructions performed. CT of the cervical spine was obtained in axial plane without intravenous injection of contrast mater ial. Coronal and sagittal reformatted images were obtained from the axial views for evaluation of f ractures, spinal alignment and canal. FINDINGS: Head: Significant motion artifact both at the vertex and also along the skull base causing marked limitatio n in assessment along these regions. Allowing for these limitations, there is no convincing evidence of acute intracranial hemorrhage, ac gely ischemic changes, mass, mass-effect, or extra-axial fluid collection. There is no effacement of cerebral sulci or basal subarachnoid cisterns. There is no hydrocephalus. There is no midline shift . Cooper-white matter distinction is preserved. Leftward nasal septal deviation. Paranasal sinuses and mastoid air cells are well pneumatized. Orbits and globes appear grossly intact. Cervical spine: No craniocervical junction anomaly, predental space widening, or prevertebral soft tissue swelling. Moderate degenerative disc disease C5-C6 and C6-C7. Possible mild narrowing of the spinal canal at C5 -C6 due to discussed by complex. Detailed assessment of the spinal canal is very limited due to large body habitus and extensive malaise artifacts. Degenerative grade 1 anterolisthesis C3-C4 and C4-C5. Scattered mild and moderate facet and uncovertebral joint arthropathy especially mid to lower cervica l spine. No definite acute fracture identified. There are mild neural foraminal narrowing throughout. Moderate on the left at C6-C7. Sagittal and coronal reformatted images confirm above findings. COMBINED IMPRESSION: 1. Limited assessment of the brain due to extensive motion artifacts. No definite acute intracranial abnormality seen. 2. Limited assessment of the cervical spine as well, predominantly due to very large body habitus and secondary motion artifacts. There is scattered mild to moderate spondylotic change mid to lower cerv ical spine and degenerative grade 1 anterolisthesis C3-C4 and C4-C5. No definite acute fracture seen. [facility], , 12/05/2023 3:55 PM
[2023-12-05 16:18] LABS: Appearance,Urine Clear (Clear); Bilirubin,Urine Negative (Negative); Blood,Urine Trace (Negative); Color,Urine Colorless; Glucose,Urine (UA) Negative (Negative); Ketones,Urine Negative (Negative); Leukocyte Esterase,Urine Negative (Negative); Nitrite,Urine Negative (Negative); Protein,Urine Negative (Negative); RBC,Urine 1 /hpf (0-5); Specific Gravity,Urine 1.004 (1.001-1.035); Squamous Epithelial Cell,Urine <1 /hpf (0-4); Urobilinogen,Urine <2.0 mg/dL (<2.0)
[2023-12-05 16:28] LABS: Amphetamine Screen,Urine Not Detected (NotDetected); Barbiturate Screen,Urine Not Detected (NotDetected); Benzodiazepines Screen,Urine Not Detected (NotDetected); Cocaine Screen,Urine Not Detected (NotDetected); Methadone Screen, Urine Not Detected (NotDetected); Opiate Screen,Urine Not Detected (NotDetected); Oxycodone Screen, Urine Not Detected (NotDetected); Phencyclidine Screen,Urine Not Detected (NotDetected); Tricyclic Antidepressant,Urine Not Detected (NotDetected); Urn Cannabinoid Scrn Not Detected (NotDetected)
[2023-12-05] MEDS: LACTULOSE 20 GM/30 ML CUP PO ONE (17:38)
[2023-12-05] MEDS ORDERED: NALOXONE 0.4 MG/ML 1 ML VIAL IV PRN (18:10)
[2023-12-05] MEDS: SODIUM CHLORIDE 0.9% 1,000 ML IV SCH (20:17)
--- NOTE | 2023-12-05 22:02 | P.HPIM ---
History of Present Illness H&P Date: 12/05/23 Chief Complaint: hepatic encephalopathy Patient is a 53-year-old female with liver cirrhosis presents to the ED with altered mental status. Patient was seen at bedside. History is limited due to altered mental status. She is not sure where she is and she is in the hospital. Per ED note paramedics report the family members had conflicting histories and came to the duration of how long she has been altered. Paramedics noted no signs of trauma. Review of systems: Pertinent positives and negatives as discussed in HPI, a complete review of systems was performed and all other systems are negative. Physical examination: Vitals: T97.9 F, HI 105, RR 20, BP 130/75, O2 sat 100% on room air General: awake alert, confused, no distress, appears at stated age, morbidly obese Derm: no unusual rashes/lesions, warm Head: atraumatic, normocephalic, symmetric Eyes: EOMI, anicteric sclera, pupils equal round reactive to light ENT: Nose and ears atraumatic Mouth: no lip lesion, mucus membranes moist Cardiovascular: S1S2 reg, no murmur, positive dorsalis pedis pulse bilateral, no edema Lungs: CTA bilateral, no rhonchi, no rales, no accessory muscle use Abdominal: soft, tender to palpation in right upper quadrant, no guarding Ext: muscle strength 5 out of 5 in all 4 extremities grossly, no gross muscle atrophy Neuro: CN II-XI grossly intact, flapping tremor bilateral hand Psych: Alert, patient was not oriented to person, place, time Assessment/Plan: Patient is a 53-year-old female with liver cirrhosis presents to the ED with altered mental status. ED documentation reviewed and case discussed with ED provider. Discussed with patient. The patient is admitted with an anticipated [] than 2 midnight stay for evaluation of hepatic encephalopathy. #. acute metabolic encephalopathy Altered mental status in the setting of hepatic encephalopathy R/o other causes of AMS Ammonia elevated at 104, AST 44H, ALT 33, alk phos 135H, total bili 1.8H UDS negative for any drug use, serum alcohol <10 UA negative for UTI, trace urine blood Coag panel wnl PT 12.2, INR 1.1, APTT 23.4 VBG WNL pH 7.37, pCO2 47, HCO3 25 EKG independently interpreted shows sinus rhythm with possible right ventricular conduction delay, rate 84 bpm, QTc 421 ms Head/cervical spine CT showed no acute intracranial abnormality, assessment limited due to extensive motion and large body habitus Pelvis x-ray showed no obvious displaced fracture Chest x-ray independently interpreted showed increased pulmonary vascular congestion, cardiomegaly Rifamixin 550 mg PO BID Order lipase Continue with lactulose 20 mg PO TID Continue with home Aldactone Normal saline at 75 cc/HR #. Pulmonary edema Chest x-ray independently interpreted showed increased pulmonary vascular congestion, cardiomegaly Lasix 40 mg IV q12hr #. Normocytic anemia #. Thrombocytopenia Hgb 10.1 No active source of bleeding currently present Likely due to chronic disease due to poor hepatic function Monitor with follow-up CBC #. Sinus tachycardia HI [id number] range Monitor closely likely due to the #. Minor fall Pelvis x-ray showed no obvious displaced fracture No signs of trauma #. GERD Continue with omeprazole 20 mg p.o. daily #. Anxiety/depression Continue with Paxil 25 mg p.o. daily F: Normal saline at 75 cc/HR E: Replete electrolytes as needed N: Heart healthy diet A: Fall precaution DVT prophylaxis: Lovenox 40 SQ daily CODE STATUS: Full code Past Medical History Past Medical History: Blood Disorder, GERD/Reflux, Liver Disease Additional Past Medical History / Comment(s): PROTHROMBIN GENE MUTATION, HX BLOOD CLOT IN PORTAL VEIN X7 YEARS. HAS ENLARGED SPLEEN, HAS INTERNAL NERVE PAIN D/T THIS. HEAVY & IRREG MENSES, ANEMIA; HAD IRON INFUSIONS X2 11/28, 12/05/16. History of Any Multi-Drug Resistant Organisms: None Reported Past Surgical History: Cholecystectomy, Joint Replacement Additional Past Surgical History / Comment(s): PARTIAL MATTHEW KNEE REPLACEMENT. Past Anesthesia/Blood Transfusion Reactions: Motion Sickness, Postoperative Nausea & Vomiting (PONV) Past Psychological History: Anxiety Smoking Status: Former smoker Past Alcohol Use History: None Reported Past Drug Use History: None Reported - Past Family History Mother Family Medical History: Blood Disorder Additional Family Medical History / Comment(s): LEIDEN FACTOR Sister(s) Family Medical History: Blood Disorder Additional Family Medical History / Comment(s): LEIDEN FACTOR Medications and Allergies Home Medications Medication Instructions Recorded Confirmed Type Cyanocobalamin (Vitamin B-12) 1,000 mcg PO DAILY 12/17/16 12/05/23 History [Vitamin B-12] Omeprazole [PriLOSEC] 20 mg PO DAILY 12/17/16 12/05/23 History Bumetanide [Bumex] 1 mg PO BID 12/05/23 12/05/23 History Cholecalciferol [Vitamin D3 (125 125 mcg PO HS 12/05/23 12/05/23 History Mcg = 5000 Iu)] Fluticasone/Umeclidin/Vilanter 1 puff INHALATION RT-DAILY 12/05/23 12/05/23 History [Trelegy Ellipta 100-62.5-25] Furosemide [Lasix] 40 mg PO DAILY 12/05/23 12/05/23 History Gabapentin 300 mg PO TID 12/05/23 12/05/23 History Ibuprofen [Motrin] 600 mg PO Q6H PRN 12/05/23 12/05/23 History Lactulose 20 gm PO DAILY 12/05/23 12/05/23 History Lactulose 20 gm PO DAILY PRN 12/05/23 12/05/23 History Magnesium Oxide [Magox 400] 400 mg PO BID 12/05/23 12/05/23 History Montelukast [Singulair] 10 mg PO DAILY 12/05/23 12/05/23 History PARoxetine HCL [PARoxetine HCL Cr] 25 mg PO DAILY 12/05/23 12/05/23 History Potassium Unknown Strength Otc 1 dose PO HS 12/05/23 12/05/23 History Rifaximin [Xifaxan] 550 mg PO BID 12/05/23 12/05/23 History Spironolactone [Aldactone] 25 mg PO DAILY 12/05/23 12/05/23 History Allergies Allergy/AdvReac Type Severity Reaction Status Date / Time No Known Allergies Allergy Verified 12/05/23 16:22 Physical Exam Vitals: Vital Signs Temp Pulse Resp BP Pulse Ox 12/05/23 19:54 97.9 F 105 H 20 130/75 100 12/05/23 17:09 99 18 129/86 99 12/05/23 16:00 101 H 20 144/80 99 12/05/23 14:57 102 H 20 135/88 97 12/05/23 14:20 96.9 F L 87 20 135/88 100 Intake and Output 12/05/23 12/05/23 12/05/23 06:59 14:59 22:59 Intake Total 500 Output Total 1025 Balance -525 Intake: Intake, IV Titration 500 Amount Sodium Chloride 0.9% 500 500 ml 500 ml @ 999 mls/hr IV .Q31M ONE Rx#:[id number] Output: Urine 1025 Other: Weight 158.757 kg Results CBC & Chem 7: 12/05/23 14:40 12/05/23 14:40 Labs: Abnormal Lab Results - Last 24 Hours (Table) 12/05/23 12/05/23 12/05/23 Range/Units 14:40 14:40 14:40 RBC 3.71 L (3.80-5.40) m/uL Hgb 10.1 L (11.4-16.0) gm/dL Hct 31.8 L (34.0-46.0) % RDW 18.5 H (11.5-15.5) % Plt Count 149 L (150-450) k/uL Lymphocytes # (Manual) 0.73 L (1.0-4.8) k/uL Chloride 110 H (98-107) mmol/L BUN 18 H (7-17) mg/dL Glucose 102 H (74-99) mg/dL Total Bilirubin 1.8 H (0.2-1.3) mg/dL AST 44 H (14-36) U/L Alkaline Phosphatase 135 H (38-126) U/L Ammonia 104 H (<30) umol/L Total Protein 6.1 L (6.3-8.2) g/dL Urine Blood (Negative) 12/05/23 Range/Units 15:53 RBC (3.80-5.40) m/uL Hgb (11.4-16.0) gm/dL Hct (34.0-46.0) % RDW (11.5-15.5) % Plt Count (150-450) k/uL Lymphocytes # (Manual) (1.0-4.8) k/uL Chloride (98-107) mmol/L BUN (7-17) mg/dL Glucose (74-99) mg/dL Total Bilirubin (0.2-1.3) mg/dL AST (14-36) U/L Alkaline Phosphatase (38-126) U/L Ammonia (<30) umol/L Total Protein (6.3-8.2) g/dL Urine Blood Trace H (Negative) Assessment and Plan Assessment: I have seen and evaluated the patient today. I Discussed the case with the resident and agree with the resident's findings I edited the assessment and plan as necessary as documented in the resident's note.
[2023-12-05] MEDS: LACTULOSE 20 GM/30 ML CUP PO SCH (23:06)
[2023-12-05] MEDS: ENOXAPARIN 40 MG/0.4 ML SYRINGE SQ SCH (23:06)
[2023-12-05] MEDS: SPIRONOLACTONE 25 MG TAB PO SCH (23:06)
[2023-12-05] MEDS: GABAPENTIN 300 MG CAP PO SCH (23:06)
[2023-12-06] MEDS: RIFAXIMIN 550 MG TABLET PO SCH (01:55)
[2023-12-06 06:16] LABS: ALT 32 U/L (4-34); AST 44 U/L (14-36); African American GFR (CKD) >90 (>60 ml/min/1.73 sqM); Albumin 3.2 g/dL (3.5-5.0); Alkaline Phosphatase 127 U/L (38-126); Anion Gap 5 mmol/L; Blood Urea Nitrogen 15 mg/dL (7-17); Calcium 9.6 mg/dL (8.4-10.2); Carbon Dioxide 21 mmol/L (22-30); Chloride 113 mmol/L (98-107); Glucose 85 mg/dL (74-99); Lipase 128 U/L (23-300); Magnesium 1.4 mg/dL (1.6-2.3); Non-African American GFR(CKD) >90 (>60 ml/min/1.73 sqM); Potassium 3.6 mmol/L (3.5-5.1); Sodium 139 mmol/L (137-145); Total Bilirubin 2.8 mg/dL (0.2-1.3); Total Protein 5.8 g/dL (6.3-8.2)
[2023-12-06 06:22] LABS: Anisocytosis Slight; HCT 30.6 % (34.0-46.0); HGB 9.6 gm/dL (11.4-16.0); Hypochromasia Marked; MCH 27.5 pg (25.0-35.0); MCHC 31.5 g/dL (31.0-37.0); MCV 87.2 fL (80.0-100.0); Mean Platelet Volume 8.9; Platelet Count 167 k/uL (150-450); RBC 3.51 m/uL (3.80-5.40); RDW 18.6 % (11.5-15.5); WBC 7.5 k/uL (3.8-10.6)
[2023-12-06 07:19] LABS: Lymphocytes # (M) 2.48 k/uL (1.0-4.8); Monocytes # (M) 0.15 k/uL (0-1.0); Neutrophils # (M) 4.58 k/uL (1.3-7.7); Neutrophils % (M) 61 %; Nucleated Red Blood Cells 0 /100 WBC (0-0); Total Cells Counted 100
[2023-12-06] MEDS: IPRATROPIUM 0.5 MG/2.5 ML NEBU INHALATION SCH (08:39)
[2023-12-06] MEDS: SYMBICORT 80-4.5 MCG INHALER INHALATION SCH (08:39)
[2023-12-06] MEDS: MAGNESIUM SULFATE-D5W PMX 1 GM in DEXTROSE/WATER 1 100ML.BAG IVPB SCH (09:34)
[2023-12-06] MEDS: PANTOPRAZOLE 40 MG TABLET PO SCH (09:34)
[2023-12-06] MEDS: MONTELUKAST 10 MG TAB PO SCH (09:35)
[2023-12-06] MEDS: FUROSEMIDE 10 MG/ML 4 ML VIAL IV SCH (09:35)
[2023-12-06] MEDS: PARoxetine 10 MG TAB PO SCH (09:36)
--- NOTE | 2023-12-06 11:50 | US ---
EXAMINATION TYPE: US abdomen complete DATE OF EXAM: 12/06/2023 COMPARISON: CT 2011, US 2010 CLINICAL INDICATION: Female, 53 years old with history of peritonitis; TECHNIQUE: Multiple sonographic images of the abdomen are obtained. FINDINGS: EXAM MEASUREMENTS: Liver Length: 12.9 cm CBD: 0.4 cm Spleen: 12.0 cm Right Kidney: 10.8 x 5.1 x 4.6 cm Left Kidney: 9.8 x 5.1 x 4.3 cm Difficult and limited study due to morbidly obese patient Pancreas: obscured by overlying midline bowel gas Liver: limited visualization, appears wnl as seen Gallbladder: surgically absent Evidence for sonographic Bridges's sign: no CBD: limited visualization, appears wnl as seen Spleen: limited visualization, appears wnl as seen Right Kidney: limited visualization, appears wnl as seen Left Kidney: limited visualization, appears wnl as seen Upper IVC: wnl Abd Aorta: obscured by overlying midline bowel gas IMPRESSION: Limited exam no evidence for acute process. [facility], Workstation: [facility], 12/06/2023 11:47 AM
--- NOTE | 2023-12-06 13:33 | P.PN ---
Subjective Progress Note Date: 12/06/23 Subjective: Patient seen and examined at the bedside. Patient still confused but is improving. AO x 1 All Systems reviewed and pertinent positives and negatives noted in HPI, all other symptoms are negative Objective: Vital signs reviewed. General: awake alert, confused, no distress, appears at stated age, morbidly obese Derm: no unusual rashes/lesions, warm Head: atraumatic, normocephalic, symmetric Eyes: EOMI, anicteric sclera, pupils equal round reactive to light ENT: Nose and ears atraumatic Mouth: no lip lesion, mucus membranes moist Cardiovascular: S1S2 reg, no murmur, positive dorsalis pedis pulse bilateral, no edema Lungs: CTA bilateral, no rhonchi, no rales, no accessory muscle use Abdominal: soft, tender to palpation in right upper quadrant, no guarding Ext: muscle strength 5 out of 5 in all 4 extremities grossly, no gross muscle atrophy Neuro: CN II-XI grossly intact, flapping tremor bilateral hand Psych: Alert, patient was not oriented to person, place, time Data reviewed today: Labs: WBC 7.5, hemoglobin 9.6, hematocrit 30.6, platelet count 167, sodium 139, potassium 3.6, chloride 9013, bicarb 21, BUN 15, creatinine 0.6, glucose 85, calcium 9.6, magnesium 1.4, bili 2.8, AST 44, ALT 32, alkaline phosphatase 127, ammonia 16, albumin 3.2 Images: Abdominal ultrasound shows no evidence of acute process. Assessment and Plan: Patient is a 53-year-old female with liver cirrhosis presents to the ED with altered mental status. Patient being evaluated for hepatic encephalopathy. # Altered mental status likely secondary to hepatic encephalopathy R/o other causes of AMS Ammonia improved to 16; continue lactulose 20 mg p.o. 3 times daily UDS negative for any drug use, serum alcohol <10 UA negative for UTI, trace urine blood Coag panel wnl PT 12.2, INR 1.1, APTT 23.4 VBG WNL pH 7.37, pCO2 47, HCO3 25 EKG independently interpreted shows sinus rhythm with possible right ventricular conduction delay, rate 84 bpm, QTc 421 ms Head/cervical spine CT showed no acute intracranial abnormality, assessment limited due to extensive motion and large body habitus Pelvis x-ray showed no obvious displaced fracture Chest x-ray independently interpreted showed increased pulmonary vascular congestion, cardiomegaly Rifamixin 550 mg PO BID Lipase 128 Continue with lactulose 20 mg PO TID Continue with home Aldactone #Abdominal pain Rule out spontaneous bacterial peritonitis Abdominal ultrasound shows no sign of infection d/c ceftriaxone #Pulmonary edema Chest x-ray independently interpreted showed increased pulmonary vascular congestion, cardiomegaly Lasix 40 mg IV q12hr #Normocytic anemia #Thrombocytopenia Hgb 10.1 No active source of bleeding currently present Likely due to chronic disease due to poor hepatic function Monitor with follow-up CBC Order iron studies #Hypomagnesemia Status post 2 g of IV mag Monitor mag #Sinus tachycardia WV 101-105 range #Minor fall Pelvis x-ray showed no obvious displaced fracture No signs of trauma #GERD Continue with omeprazole 20 mg p.o. daily #Anxiety/depression Continue with Paxil 25 mg p.o. daily F: None E: Replete electrolytes as needed N: Heart healthy diet A: Fall precaution DVT prophylaxis: Lovenox 40 SQ daily CODE STATUS: Full code Anticipated discharge place: Pending clinical course Anticipated discharge date: Pending clinical course I saw and evaluated the patient during the mariscal and critical portions of this encounter, and discussed the case in detail with the resident author of this note, I agree with the Assessment and Plan, and my changes, if any, are highlighted in blue. Objective - Vital Signs Vital signs: Vital Signs Temp 98 F 12/06/23 13:02 Pulse 99 12/06/23 13:02 Resp 20 12/06/23 13:02 BP 106/68 12/06/23 13:02 Pulse Ox 98 12/06/23 13:02 FiO2 Intake & Output 12/05/23 12/06/23 12/06/23 18:59 06:59 18:59 Intake Total 500 Output Total 1025 1999 Balance -525 -1999 Weight 158.757 kg Intake: Intake, IV Titration 500 Amount Sodium Chloride 0.9% 500 500 ml 500 ml @ 999 mls/hr IV .Q31M ONE Rx#:[id number] Output: Urine 1025 1999 - Labs CBC & Chem 7: 12/06/23 05:42 12/06/23 05:42 Labs: Abnormal Lab Results - Last 24 Hours (Table) 12/05/23 12/05/23 12/05/23 Range/Units 14:40 14:40 14:40 RBC 3.71 L (3.80-5.40) m/uL Hgb 10.1 L (11.4-16.0) gm/dL Hct 31.8 L (34.0-46.0) % RDW 18.5 H (11.5-15.5) % Plt Count 149 L (150-450) k/uL Lymphocytes # (Manual) 0.73 L (1.0-4.8) k/uL Chloride 110 H (98-107) mmol/L Carbon Dioxide (22-30) mmol/L BUN 18 H (7-17) mg/dL Glucose 102 H (74-99) mg/dL Magnesium (1.6-2.3) mg/dL Total Bilirubin 1.8 H (0.2-1.3) mg/dL AST 44 H (14-36) U/L Alkaline Phosphatase 135 H (38-126) U/L Ammonia 104 H (<30) umol/L Total Protein 6.1 L (6.3-8.2) g/dL Albumin (3.5-5.0) g/dL Urine Blood (Negative) 12/05/23 12/06/23 12/06/23 Range/Units 15:53 05:42 05:42 RBC 3.51 L (3.80-5.40) m/uL Hgb 9.6 L (11.4-16.0) gm/dL Hct 30.6 L (34.0-46.0) % RDW 18.6 H (11.5-15.5) % Plt Count (150-450) k/uL Lymphocytes # (Manual) (1.0-4.8) k/uL Chloride 113 H (98-107) mmol/L Carbon Dioxide 21 L (22-30) mmol/L BUN (7-17) mg/dL Glucose (74-99) mg/dL Magnesium 1.4 L (1.6-2.3) mg/dL Total Bilirubin 2.8 H (0.2-1.3) mg/dL AST 44 H (14-36) U/L Alkaline Phosphatase 127 H (38-126) U/L Ammonia (<30) umol/L Total Protein 5.8 L (6.3-8.2) g/dL Albumin 3.2 L (3.5-5.0) g/dL Urine Blood Trace H (Negative)
[2023-12-06 14:10] LABS: Reticulocyte % 2.6 % (0.5-2.0)
[2023-12-06] MEDS: IBUPROFEN 600 MG TAB PO PRN (16:11)
[2023-12-06] MEDS ORDERED: IBUPROFEN 600 MG TAB PO SCH (18:00)
[2023-12-06] MEDS: MAGNESIUM OXIDE 400 MG TAB PO SCH (21:27)
[2023-12-07 04:44] VITALS: RESP 16
[2023-12-07 08:30] LABS: Anisocytosis Slight; HCT 26.5 % (34.0-46.0); HGB 8.7 gm/dL (11.4-16.0); Hypochromasia Slight; MCH 28.3 pg (25.0-35.0); MCHC 32.8 g/dL (31.0-37.0); MCV 86.1 fL (80.0-100.0); Mean Platelet Volume 9.6; Platelet Count 143 k/uL (150-450); RBC 3.07 m/uL (3.80-5.40); WBC 6.4 k/uL (3.8-10.6)
[2023-12-07 08:42] LABS: African American GFR (CKD) 84 (>60 ml/min/1.73 sqM); Anion Gap 1 mmol/L; Blood Urea Nitrogen 17 mg/dL (7-17); Carbon Dioxide 28 mmol/L (22-30); Chloride 109 mmol/L (98-107); Glucose 90 mg/dL (74-99); Magnesium 1.4 mg/dL (1.6-2.3); Non-African American GFR(CKD) 73 (>60 ml/min/1.73 sqM); Potassium 3.6 mmol/L (3.5-5.1); Sodium 138 mmol/L (137-145)
[2023-12-07 09:51] LABS: % Iron Saturation 40.87 (12.00-45.00)
[2023-12-07 10:25] LABS: Ferritin 36.1 ng/mL (10.0-291.0)
[2023-12-07 11:13] LABS: Eosinophils # (M) 0.19 k/uL (0-0.7); Lymphocytes # (M) 1.54 k/uL (1.0-4.8); Monocytes # (M) 0.96 k/uL (0-1.0); Neutrophils # (M) 3.71 k/uL (1.3-7.7); Neutrophils % (M) 58 %; Nucleated Red Blood Cells 0 /100 WBC (0-0); Total Cells Counted 100
[2023-12-07 11:14] LABS: RBC Fragments Present
[2023-12-07] MEDS: MAGNESIUM SULFATE-D5W PMX 1 GM in DEXTROSE/WATER 1 100ML.BAG IVPB SCH (11:35)
--- NOTE | 2023-12-07 12:06 | P.DS ---
Providers Date of admission: 12/05/23 18:11 Expected date of discharge: 12/07/23 Attending physician: Calvin Cintron MD Primary care physician: Nato Beck Hospital Course: # Altered mental status likely secondary to hepatic encephalopathy #Abdominal pain #Pulmonary edema #Normocytic anemia #Thrombocytopenia #Hypomagnesemia #Sinus tachycardia #Minor fall #GERD #Anxiety/depression Gen: In NAD, non-toxic, obesity class V HEENT: normocephalic, atraumatic, hearing acuity is intant, mucous membranes moist CVS: perfusing all extremities well, no pitting edema, Respiratory: symmetric chest expansion, no accessory muscle use, GI: soft, NTTP, ND, : no suprapubic tenderness, no CVA tenderness MSK/Derm: no rashes, cyanosis Neuro: CN II-XII intact, no motor weakness, Psych: cooperative, euthymic mood, judgment and insight is intact Hospital course: Patient is a 53-year-old female with liver cirrhosis presents to the ED with altered mental status. In the emergency room, patient was afebrile, 135/88, heart rate 87, 100% on room air. Pertinent lab findings included hyperammonemia to over 100, anemia to 9.6 which is patient's baseline. Patient was admitted to the hospital for hepatic encephalopathy. Patient was resumed on her home dose of rifaximin 550 mg twice daily and had her home lactulose increased to 20 g 3 times daily. She had multiple bowel movements, ammonia resolved to a level of 16. Patient's mental status returned to normal. Consideration of SBP was entertained due to some abdominal pain, patient underwent liver ultrasound which did not demonstrate significant amount of ascites and therefore SBP prophylaxis with ceftriaxone was discontinued. I discussed this case with the patient's family member who is at bedside who informs me that patient has a scheduled liver transplant evaluation at [facility] on Friday. Patient was discharged with an increased dose of lactulose with instructions to titrate to bowel movements of 4-5 times daily. She should follow-up with her primary care physician as well as hepatology for liver transplant evaluation. I spent 40 minutes coordinating this discharge Patient Condition at Discharge: Stable Plan - Discharge Summary Discharge Rx Participant: Yes New Discharge Prescriptions: Continue Omeprazole [PriLOSEC] 20 mg PO DAILY Cyanocobalamin (Vitamin B-12) [Vitamin B-12] 1,000 mcg PO DAILY Spironolactone [Aldactone] 25 mg PO DAILY Rifaximin [Xifaxan] 550 mg PO BID Montelukast [Singulair] 10 mg PO DAILY Ibuprofen [Motrin] 600 mg PO Q6H PRN PRN Reason: Pain Gabapentin 300 mg PO TID Fluticasone/Umeclidin/Vilanter [Trelegy Ellipta 100-62.5-25] 1 puff INHALATION RT-DAILY Magnesium Oxide [Magox 400] 400 mg PO BID PARoxetine HCL [PARoxetine HCL Cr] 25 mg PO DAILY Potassium Unknown Strength Otc 1 dose PO HS Cholecalciferol [Vitamin D3 (125 Mcg = 5000 Iu)] 125 mcg PO HS Bumetanide [BUMEX] 1 mg PO BID Changed Lactulose 20 gm PO TID #2700 ml Discontinued Lactulose 20 gm PO DAILY Furosemide [Lasix] 40 mg PO DAILY Discharge Medication List Cyanocobalamin (Vitamin B-12) [Vitamin B-12] 1,000 mcg PO DAILY 12/17/16 [Hist ory] Omeprazole [PriLOSEC] 20 mg PO DAILY 12/17/16 [History] Bumetanide [BUMEX] 1 mg PO BID 12/05/23 [History] Cholecalciferol [Vitamin D3 (125 Mcg = 5000 Iu)] 125 mcg PO HS 12/05/23 [History] Fluticasone/Umeclidin/Vilanter [Trelegy Ellipta 100-62.5-25] 1 puff INHALATION RT-DAILY 12/05/23 [History] Gabapentin 300 mg PO TID 12/05/23 [History] Ibuprofen [Motrin] 600 mg PO Q6H PRN 12/05/23 [History] Magnesium Oxide [Magox 400] 400 mg PO BID 12/05/23 [History] Montelukast [Singulair] 10 mg PO DAILY 12/05/23 [History] PARoxetine HCL [PARoxetine HCL Cr] 25 mg PO DAILY 12/05/23 [History] Potassium Unknown Strength Otc 1 dose PO HS 12/05/23 [History] Rifaximin [Xifaxan] 550 mg PO BID 12/05/23 [History] Spironolactone [Aldactone] 25 mg PO DAILY 12/05/23 [History] Lactulose 20 gm PO TID #2700 ml 12/07/23 [Rx] Follow up Appointment(s)/Referral(s): Nato Beck MD [Primary Care Provider] - 1-2 days Discharge Disposition: HOME SELF-CARE
[2023-12-07 15:49] VITALS: BP 141/69; TEMP 98
[2023-12-07 15:54] VITALS: PULSE 90
== END 2023-12-07 17:25 | disposition home or self-care (01) | DRG 442 ==
LOC: EC 14:16 → 3SCARD 18:11
PROVIDERS: ADMIT Internal Medicine; ATTEND Internal Medicine
DX: K76.82 Hepatic encephalopathy (principal); D68.52 Prothrombin gene mutation; F05 Delirium due to known physiological condition; J81.1 Chronic pulmonary edema; E72.4 Disorders of ornithine metabolism; Z68.45 Body mass index [BMI] 70 or greater, adult; K72.90 Hepatic failure, unspecified without coma; R00.0 Tachycardia, unspecified; E66.8 Other obesity; D64.9 Anemia, unspecified; D69.6 Thrombocytopenia, unspecified; E83.42 Hypomagnesemia; F32.A Depression, unspecified; F41.9 Anxiety disorder, unspecified; K21.9 Gastro-esophageal reflux disease without esophagitis; K74.60 Unspecified cirrhosis of liver; Z79.899 Other long term (current) drug therapy; Z87.891 Personal history of nicotine dependence; Z96.653 Presence of artificial knee joint, bilateral; Z86.718 Personal history of other venous thrombosis and embolism
CPT/HCPCS: 36415; 70450; 71045; 72125; 72170; 76700; 80048; 80053; 80306; 80320; 81001; 82140; 82728; 82803; 83540; 83550; 83690; 83735; 84466; 85025; 85045; 85610; 85730; 93005; 94640; 96361; 96365; 96366; 96367; 96372; 99285

== ENCOUNTER 2024-01-16 11:29 | Inpatient (IN) | payer BC, MEDICARE ==
--- NOTE | 2024-01-16 12:39 | ED ---
General Adult HPI - General Chief complaint: Altered Mental Status Stated complaint: AMS Time Seen by Provider: 01/16/24 11:57 Source: patient, EMS Mode of arrival: EMS - History of Present Illness Initial comments: Dictation was produced using [employer] dictation software. please excuse any grammatical, word or spelling errors. 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 She is currently on the list for liver transplant. She is accompanied by family member states that she has been altered for the last 3 to 4 days. Family member states that he thinks that this is her ammonia. He states that he is having difficulty controlling her. She does take lactulose. She does see a GI doctor out of [facility]. Patient is an unreliable historian at this time. History present illness obtained from family member at the bedside The ROS documented in this emergency department record has been reviewed and confirmed by me. Those systems with pertinent positive or negative responses have been documented in the HPI. All other systems are other negative and/or noncontributory. - Related Data Home Medications Medication Instructions Recorded Confirmed Cyanocobalamin (Vitamin B-12) 1,000 mcg PO DAILY 12/17/16 12/05/23 [Vitamin B-12] Omeprazole [PriLOSEC] 20 mg PO DAILY 12/17/16 12/05/23 Bumetanide [BUMEX] 1 mg PO BID 12/05/23 12/05/23 Cholecalciferol [Vitamin D3 (125 125 mcg PO HS 12/05/23 12/05/23 Mcg = 5000 Iu)] Fluticasone/Umeclidin/Vilanter 1 puff INHALATION RT-DAILY 12/05/23 12/05/23 [Trelegy Ellipta 100-62.5-25] Gabapentin 300 mg PO TID 12/05/23 12/05/23 Magnesium Oxide [Magox 400] 400 mg PO BID 12/05/23 12/05/23 Montelukast [Singulair] 10 mg PO DAILY 12/05/23 12/05/23 PARoxetine HCL [PARoxetine HCL Cr] 25 mg PO DAILY 12/05/23 12/05/23 Rifaximin [Xifaxan] 550 mg PO BID 12/05/23 12/05/23 Spironolactone [Aldactone] 25 mg PO DAILY 12/05/23 12/05/23 Albuterol Inhaler [Ventolin Hfa 2 puff INHALATION RT-Q6H PRN 01/16/24 01/16/24 Inhaler] Fexofenadine HCl [Ann Marie Allergy] 180 mg PO DAILY 01/16/24 01/16/24 Lactulose 20 gm PO BID 01/16/24 01/16/24 Vitamin E (Dl,Tocopheryl Acet) 400 unit PO DAILY 01/16/24 01/16/24 [Vitamin E (400 Iu = 180 mg)] Allergies Allergy/AdvReac Type Severity Reaction Status Date / Time No Known Allergies Allergy Verified 01/16/24 15:00 Review of Systems ROS Statement: Those systems with pertinent positive or pertinent negative responses have been documented in the HPI. ROS Other: All systems not noted in ROS Statement are negative. Past Medical History Past Medical History: Blood Disorder, GERD/Reflux, Liver Disease Additional Past Medical History / Comment(s): PROTHROMBIN GENE MUTATION, HX BL OOD CLOT IN PORTAL VEIN X7 YEARS., HAS INTERNAL NERVE PAIN D/T THIS. HEAVY & IRREG MENSES, ANEMIA; HAD IRON INFUSIONS X2 11/28, 12/05/16. History of Any Multi-Drug Resistant Organisms: None Reported Past Surgical History: Cholecystectomy, Joint Replacement Additional Past Surgical History / Comment(s): PARTIAL MATTHEW KNEE REPLACEMENT. Past Anesthesia/Blood Transfusion Reactions: Motion Sickness, Postoperative Nausea & Vomiting (PONV) Past Psychological History: Anxiety Smoking Status: Former smoker Past Alcohol Use History: None Reported Past Drug Use History: None Reported - Past Family History Mother History Unknown: Yes Family Medical History: Blood Disorder Additional Family Medical History / Comment(s): LEIDEN FACTOR Sister(s) History Unknown: Yes Family Medical History: Blood Disorder Additional Family Medical History / Comment(s): LEIDEN FACTOR General Exam - General Exam Comments Initial Comments: PHYSICAL EXAM: General Impression: Alert and oriented x2/4, jaundiced, confused HEENT: Normocephalic atraumatic, extra-ocular movements intact, pupils equal and reactive to light bilaterally, mucous membranes moist. Cardiovascular: Heart regular rate and rhythm Chest: Able to complete full sentences, no retractions, no tachypnea Abdomen: abdomen soft, non-tender, non-distended, no organomegaly Musculoskeletal: Pulses present and equal in all extremities, no peripheral edema Motor: no focal deficits noted Neurological: CN II-XII grossly intact, no focal motor or sensory deficits noted Skin: Intact with no visualized rashes Psych: Normal affect and mood Course Vital Signs 01/16/24 01/16/24 01/16/24 11:39 12:13 14:37 Temperature 99.3 F 99.3 F Pulse Rate 117 H 114 H 118 H Respiratory 18 18 20 Rate Blood Pressure 153/84 140/71 128/93 O2 Sat by Pulse 99 98 98 Oximetry - Reevaluation(s) Reevaluation #1: 01/16/24 14:40 Patient care was discussed in detail with patient's lvn, Dr. Menjivar. Case was discussed in detail to patient's lvn. Labs and clinical condition was discussed in detail. He was notified of patient's liver enzymes. States that there is no significant concern for immediate transfer. He request that patient can be given some rectal lactulose and to reassess her mentation and to send her home if she is clinically looking improved. EKG Findings - EKG Comments: EKG Findings:: My EKG interpretation: Ventricular rate 117, sinus tachycardia,. 149, QRS 97, QTc 3-7. No OR prolongation, no QTC prolongation, no ST or T-wave changes noted. Overall, this EKG is unremarkable Medical Decision Making - Medical Decision Making Was pt. sent in by a medical professional or institution (, PA, EMERGENCY MEDICAL TECHNICIAN, urgent care, hospital, or long-term...) When possible be specific @ -No Did you speak to anyone other than the patient for history (EMS, parent, family, police, friend...)? What history was obtained from this source @ -No Did you review nursing and triage notes (agree or disagree)? Why? @ -I reviewed and agree with nursing and triage notes Were old charts reviewed (outside hosp., previous admission, EMS record, old EKG , old radiological studies, urgent care reports/EKG's, long-term records)? Report findings @ -No old charts were reviewed Differential Diagnosis (chest pain, altered mental status, abdominal pain women, abdominal pain men, vaginal bleeding, musculoskeletal, weakness, fever, dyspnea, syncope, headache, dizziness, GI bleed, back pain, seizure, CVA, palpatations, mental health)? @ -Differential Altered Mental Status: Hypoglycemia, DKA, hypercapnia, ETOH, overdose, CO poisoning, trauma, myxedema coma, HTN encephalopathy, infection, encephalitis, psychosis, intercranial hemorrhage, hepatic encephalopathy, meningitis, CVA, this is not meant to be an all-inclusive list EKG interpreted by me (3pts min.). @ -See above X-rays interpreted by me (1pt min.). @ - CT interpreted by me (1pt min.). @ -CT brain shows no acute processes. U/S interpreted by me (1pt. min.). @ -None done What testing was considered but not performed or refused? (CT, X-rays, U/S, labs)? Why? @ -None What meds were considered but not given or refused? Why? @ -None Was smoking cessation discussed for >3mins.? @ -No Were there social determinants of health that impacted care today? How? (Homelessness, low income, unemployed, alcoholism, drug addiction, transportation, low edu. Level, literacy, decrease access to med. care, m[facility], rehab)? @ -No Was there de-escalation of care discussed even if they declined (Discuss DNR or withdrawal of care, Hospice)? DNR status @ -No What co-morbidities impacted this encounter? (DM, HTN, Smoking, COPD, CAD, Cancer, CVA, ARF, Chemo, Hep., AIDS, mental health diagnosis, sleep apnea, morbid obesity)? @ -Liver failure Was patient admitted / discharged? Hospital course, mention meds given and route, prescriptions, significant lab abnormalities, going to OR and other pertinent info. @ -53-year-old female with liver failure presents to the emergency department for altered mental status. Family member at the bedside is concerned that her ammonia levels are elevated again. Vital signs upon arrival are within acceptable limits she has a slight low-grade temperature tachycardia 117. Patient arousable however somnolent. Laboratory evaluation obtained. Leukocy tosis of 19.2 of unclear etiology. Metabolic panel shows lactic acidosis 2.5 likely secondary to liver disease. Bilirubin elevated 4.8. Ammonia 36. Urinalysis negative. CT brain shows no acute processes. Pending blood cultures. Clinical presentation concerning for SIRS. Patient given IV anti biotics due to risk factors. Case discussed with hospitalist recommend transfer to [facility]. Patient's liver specialist is Dr. Menjivar of [facility]. Spoke with patient's liver specialist states that there is no indication for transfer and he recommends that patient be given lactulose. Case was rediscussed with hospitalist who was agreeable for admission. Did you discuss the management of the patient with other professionals (professionals i.e. Dr., PA, EMERGENCY MEDICAL TECHNICIAN, lab, RT, psych nurse, criminal justice social worker, standpipe tender, teacher, chief creative officer, transplant case manager)? Give summary @ -See above Was critical care preformed (if so, how long)? @ -No Undiagnosed new problem with uncertain prognosis? @ -No Drug Therapy requiring intensive monitoring for toxicity (Heparin, Nitro, Insulin, Cardizem)? @ -No Were any procedures done? @ -No Diagnosis/symptom? Acute, or Chronic, or Acute on Chronic? Uncomplicated (without systemic symptoms) or Complicated (systemic symptoms)? @ -Altered mental status, SIRS Side effects of treatment? @ -No Exacerbation, Progression, or Severe Exacerbation? @ -No Poses a threat to life or bodily function? How? (Chest pain, [place], [place], pneumonia, PE, COPD, DKA, ARF, appy, cholecystitis, CVA, Diverticulitis, Homicidal, Suicidal, threat to staff... and all critical care pts) @ -yes - Lab Data Result diagrams: 01/16/24 12:26 01/16/24 12:22 Lab Results 01/16/24 01/16/24 01/16/24 Range/Units 12:22 12:22 12:22 WBC (3.8-10.6) k/uL RBC (3.80-5.40) m/uL Hgb (11.4-16.0) gm/dL Hct (34.0-46.0) % MCV (80.0-100.0) fL MCH (25.0-35.0) pg MCHC (31.0-37.0) g/dL RDW (11.5-15.5) % Plt Count (150-450) k/uL MPV Neutrophils % % Lymphocytes % % Monocytes % % Eosinophils % % Basophils % % Neutrophils # (1.3-7.7) k/uL Lymphocytes # (1.0-4.8) k/uL Monocytes # (0-1.0) k/uL Eosinophils # (0-0.7) k/uL Basophils # (0-0.2) k/uL Hypochromasia Anisocytosis Sodium 136 L (137-145) mmol/L Potassium 4.3 (3.5-5.1) mmol/L Chloride 109 H (98-107) mmol/L Carbon Dioxide 20 L (22-30) mmol/L Anion Gap 7 mmol/L BUN 10 (7-17) mg/dL Creatinine 0.54 (0.52-1.04) mg/dL Est GFR (CKD-EPI)AfAm >90 (>60 ml/min/1.73 sqM) Est GFR (CKD-EPI)NonAf >90 (>60 ml/min/1.73 sqM) Glucose 86 (74-99) mg/dL Lactic Ac Sepsis Rflx Plasma Lactic Acid Paresh 2.5 H* (0.7-2.0) mmol/L Calcium 9.7 (8.4-10.2) mg/dL Magnesium 1.0 L (1.6-2.3) mg/dL Total Bilirubin 4.8 H (0.2-1.3) mg/dL AST 57 H (14-36) U/L ALT 34 (4-34) U/L Alkaline Phosphatase 151 H (38-126) U/L Ammonia 36 H (<30) umol/L Total Protein 6.4 (6.3-8.2) g/dL Albumin 3.7 (3.5-5.0) g/dL Lipase 63 (23-300) U/L Urine Color Yellow Urine Appearance Cloudy H (Clear) Urine pH 8.0 (5.0-8.0) Ur Specific Ellsworth 1.020 (1.001-1.035) Urine Protein Negative (Negative) Urine Glucose (UA) Negative (Negative) Urine Ketones Trace H (Negative) Urine Blood Small H (Negative) Urine Nitrite Negative (Negative) Urine Bilirubin Negative (Negative) Urine Urobilinogen 3.0 (<2.0) mg/dL Ur Leukocyte Esterase Negative (Negative) Urine RBC 7 H (0-5) /hpf Urine WBC 1 (0-5) /hpf Ur Squamous Epith Cells 13 H (0-4) /hpf Urine Mucus Occasional H (None) /hpf 01/16/24 01/16/24 Range/Units 12:26 13:08 WBC 19.2 H (3.8-10.6) k/uL RBC 4.02 (3.80-5.40) m/uL Hgb 11.1 L (11.4-16.0) gm/dL Hct 35.7 (34.0-46.0) % MCV 88.6 (80.0-100.0) fL MCH 27.5 (25.0-35.0) pg MCHC 31.0 (31.0-37.0) g/dL RDW 19.2 H (11.5-15.5) % Plt Count 188 (150-450) k/uL MPV 8.6 Neutrophils % 82 % Lymphocytes % 5 % Monocytes % 11 % Eosinophils % 0 % Basophils % 0 % Neutrophils # 15.7 H (1.3-7.7) k/uL Lymphocytes # 0.9 L (1.0-4.8) k/uL Monocytes # 2.1 H (0-1.0) k/uL Eosinophils # 0.0 (0-0.7) k/uL Basophils # 0.0 (0-0.2) k/uL Hypochromasia Marked Anisocytosis Slight Sodium (137-145) mmol/L Potassium (3.5-5.1) mmol/L Chloride (98-107) mmol/L Carbon Dioxide (22-30) mmol/L Anion Gap mmol/L BUN (7-17) mg/dL Creatinine (0.52-1.04) mg/dL Est GFR (CKD-EPI)AfAm (>60 ml/min/1.73 sqM) Est GFR (CKD-EPI)NonAf (>60 ml/min/1.73 sqM) Glucose (74-99) mg/dL Lactic Ac Sepsis Rflx Y Plasma Lactic Acid Paresh (0.7-2.0) mmol/L Calcium (8.4-10.2) mg/dL Magnesium (1.6-2.3) mg/dL Total Bilirubin (0.2-1.3) mg/dL AST (14-36) U/L ALT (4-34) U/L Alkaline Phosphatase (38-126) U/L Ammonia (<30) umol/L Total Protein (6.3-8.2) g/dL Albumin (3.5-5.0) g/dL Lipase (23-300) U/L Urine Color Urine Appearance (Clear) Urine pH (5.0-8.0) Ur Specific Ellsworth (1.001-1.035) Urine Protein (Negative) Urine Glucose (UA) (Negative) Urine Ketones (Negative) Urine Blood (Negative) Urine Nitrite (Negative) Urine Bilirubin (Negative) Urine Urobilinogen (<2.0) mg/dL Ur Leukocyte Esterase (Negative) Urine RBC (0-5) /hpf Urine WBC (0-5) /hpf Ur Squamous Epith Cells (0-4) /hpf Urine Mucus (None) /hpf Disposition Clinical Impression: AMS (altered mental status) Disposition: ADMITTED IP TO THIS HOSP Condition: Serious Referrals: Nato Beck MD [Primary Care Provider] - 1-2 days Decision Time: 15:16
[2024-01-16 12:48] LABS: Anisocytosis Slight; Basophils % (A) 0 %; Eosinophils % (A) 0 %; HCT 35.7 % (34.0-46.0); HGB 11.1 gm/dL (11.4-16.0); Hypochromasia Marked; Lymphocytes # (A) 0.9 k/uL (1.0-4.8); Lymphocytes % (A) 5 %; MCH 27.5 pg (25.0-35.0); MCV 88.6 fL (80.0-100.0); Mean Platelet Volume 8.6; Monocytes # (A) 2.1 k/uL (0-1.0); Monocytes % (A) 11 %; Neutrophils # (A) 15.7 k/uL (1.3-7.7); Neutrophils % (A) 82 %; Platelet Count 188 k/uL (150-450); RBC 4.02 m/uL (3.80-5.40); RDW 19.2 % (11.5-15.5); WBC 19.2 k/uL (3.8-10.6)
[2024-01-16] MEDS: SODIUM CHLORIDE 0.9% 1,000 ML IV STA (12:53)
[2024-01-16 13:07] LABS: Lactic Acid, Venous 2.5 mmol/L (0.7-2.0)
[2024-01-16 13:09] LABS: ALT 34 U/L (4-34); AST 57 U/L (14-36); African American GFR (CKD) >90 (>60 ml/min/1.73 sqM); Albumin 3.7 g/dL (3.5-5.0); Alkaline Phosphatase 151 U/L (38-126); Anion Gap 7 mmol/L; Appearance,Urine Cloudy (Clear); Bilirubin,Urine Negative (Negative); Blood Urea Nitrogen 10 mg/dL (7-17); Blood,Urine Small (Negative); Calcium 9.7 mg/dL (8.4-10.2); Carbon Dioxide 20 mmol/L (22-30); Chloride 109 mmol/L (98-107); Color,Urine Yellow; Glucose 86 mg/dL (74-99); Glucose,Urine (UA) Negative (Negative); Ketones,Urine Trace (Negative); Leukocyte Esterase,Urine Negative (Negative); Lipase 63 U/L (23-300); Mucus,Urine Occasional /hpf; Nitrite,Urine Negative (Negative); Non-African American GFR(CKD) >90 (>60 ml/min/1.73 sqM); Potassium 4.3 mmol/L (3.5-5.1); Protein,Urine Negative (Negative); RBC,Urine 7 /hpf (0-5); Sodium 136 mmol/L (137-145); Squamous Epithelial Cell,Urine 13 /hpf (0-4); Total Bilirubin 4.8 mg/dL (0.2-1.3); Total Protein 6.4 g/dL (6.3-8.2); WBC,Urine 1 /hpf (0-5)
--- NOTE | 2024-01-16 13:56 | CT ---
EXAMINATION TYPE: CT brain wo con CT DLP: 1095.4 mGycm, Automated exposure control for dose reduction was used. DATE OF EXAM: 01/16/2024 1:49 PM COMPARISON: CT brain C-spine 12/05/2023, CT brain 10/19/2022 CLINICAL INDICATION:Female, 53 years old with history of ams, AMS TECHNIQUE: Brain: Multiple axial CT images of the brain were obtained without IV contrast. . Coronal and sagitta l reformats reviewed. FINDINGS: Significantly motion degraded exam. Brain: Extra-axial spaces: No abnormal extra-axial fluid collections. Ventricular system: Within normal limits Cerebral parenchyma: No gross evidence of acute intraparenchymal hemorrhage or mass effect. The aldrich -white junction is well differentiated. Cerebellum: Grossly unremarkable Mass effect: No gross evidence of midline shift. Intracranial vasculature: Grossly unremarkable Soft tissues: Grossly unremarkable Calvarium/osseous structures: No gross evidence of depressed skull fracture. Paranasal sinuses and mastoid air cells: Clear, aplasia of the left frontal sinus. Visualized orbits: Grossly unremarkable IMPRESSION: Motion degraded examination with no gross evidence of acute intracranial process. [facility], , 01/16/2024 1:53 PM
[2024-01-16] MEDS ORDERED: VANCOMYCIN IV PER PHARMACY 1 EACH MISC MISCELLANE PRN (14:25)
--- NOTE | 2024-01-16 14:30 | XR ---
EXAMINATION TYPE: XR chest 2V DATE OF EXAM: 01/16/2024 2:17 PM COMPARISON: Chest radiographs from 12/05/2023 TECHNIQUE: XR chest 2V Frontal and lateral views of the chest. CLINICAL INDICATION:Female, 53 years old with history of fever, leukocytosis; FINDINGS: Lungs/Pleura: No pleural effusion or pneumothorax. Diffuse patchy groundglass opacities throughout th e lungs. Heart/mediastinum: Cardiomediastinal silhouette is enlarged and stable. Musculoskeletal: Multiple level degenerative disc disease changes seen throughout the spine. Left hum erus fixation plate identified. IMPRESSION: Moderate cardiomegaly with diffuse patchy opacities throughout the lungs which may represent pulmonar y edema versus infiltrate/pneumonia. [facility], , 01/16/2024 2:28 PM
[2024-01-16] MEDS: CEFEPIME 2 GM in SODIUM CHLORIDE 0.9% 100 ML IVPB STA (14:42)
[2024-01-16] MEDS: MAGNESIUM SULFATE-D5W PMX 1 GM in DEXTROSE/WATER 1 100ML.BAG IVPB SCH (14:43)
[2024-01-16] MEDS ORDERED: NALOXONE 0.4 MG/ML 1 ML VIAL IV PRN (15:13)
[2024-01-16] MEDS: VANCOMYCIN 2,000 MG in SODIUM CHLORIDE 0.9% 500 ML 500 ML IVPB STA (15:45)
[2024-01-16] MEDS: SODIUM CHLORIDE 0.9% 1,000 ML IV SCH (15:45)
[2024-01-16 16:15] LABS: INR 1.3 (<1.2); Partial Thromboplastin Time 24.1 sec (22.0-30.0)
[2024-01-16] MEDS: LACTULOSE 200 GM/300 ML (FROM 1/2 GAL JUG) RECTAL ONE (16:18)
[2024-01-16] MEDS: cefTRIAXone IN SWFI 1,000 MG/10 ML SYRINGE IVP STA (19:57)
[2024-01-16] MEDS: LACTULOSE 20 GM/30 ML CUP PO SCH (21:03)
[2024-01-16] MEDS: LACTULOSE 200 GM/300 ML (FROM 1/2 GAL JUG) RECTAL SCH (21:07)
[2024-01-16] MEDS: IBUPROFEN 800 MG TAB PO PRN (21:47)
[2024-01-16] MEDS: CEFEPIME 2 GM in SODIUM CHLORIDE 0.9% 100 ML IVPB SCH (23:20)
[2024-01-17] MEDS: VANCOMYCIN 2,000 MG in SODIUM CHLORIDE 0.9% 500 ML 500 ML IVPB SCH (03:05)
[2024-01-17 04:41] LABS: African American GFR (CKD) >90 (>60 ml/min/1.73 sqM); Non-African American GFR(CKD) >90 (>60 ml/min/1.73 sqM)
[2024-01-17] MEDS ORDERED: ALBUTEROL HFA INHALER INHALATION PRN (09:32)
[2024-01-17] MEDS ORDERED: ONDANSETRON 4 MG/2 ML VIAL IVP PRN (09:34)
--- NOTE | 2024-01-17 09:47 | P.CONS ---
History of Present Illness - Reason for Consult Consult date: 01/16/24 SIRS Requesting physician: Vega Young - Chief Complaint Mental status changes x 3 days - History of Present Illness Patient is a 53-year-old female with a past medical history significant for reflux did have liver failure on transplant list patient has been brought into the hospital for evaluation of altered mental status for the last 3 to 4 days and apparently the family has been concerned possible related to elevated ammonia level at the septa have a problem controlling it in the outpatient setting patient on presentation to the hospital did have a low-grade fever of 99.3 prompting this consultation, patient on my evaluation is lethargic but arousable seem to be confused elevated good historian she was not able to tell me where she is however when asked specifically for any headache she says no no vomiting or diarrhea has been reported by the nursing staff at the bedside no family member available denies any chest pain or cough or any urinary symptoms patient did have a white count of 19.2 at admission creatinine 0.54 lactic acid was 2.5 liver isms are elevated UA was negative influenza RSV COVID testing is negative patient did have a CT of the brain that was negative for any bleed chest x-ray moderate cardiomegaly with diffuse patchy opacity throughout the lungs which may represent pulmonary edema versus infiltrate pneumonia patient has been started on vancomycin and cefepime infectious disease was consulted for further management of antibiotic therapy Review of Systems Positive points has been mentioned in HPI complete review could not be obtained because of his underlying mental status Past Medical History Past Medical History: Blood Disorder, GERD/Reflux, Liver Disease Additional Past Medical History / Comment(s): PROTHROMBIN GENE MUTATION, HX BLOOD CLOT IN PORTAL VEIN X7 YEARS., HAS INTERNAL NERVE PAIN D/T THIS. HEAVY & IRREG MENSES, ANEMIA; HAD IRON INFUSIONS X2 11/28, 12/05/16. History of Any Multi-Drug Resistant Organisms: None Reported Past Surgical History: Cholecystectomy, Joint Replacement Additional Past Surgical History / Comment(s): PARTIAL MATTHEW KNEE REPLACEMENT. Past Anesthesia/Blood Transfusion Reactions: Motion Sickness, Postoperative Nausea & Vomiting (PONV) Past Psychological History: Anxiety Smoking Status: Former smoker Past Alcohol Use History: None Reported Past Drug Use History: None Reported - Past Family History Mother History Unknown: Yes Family Medical History: Blood Disorder Additional Family Medical History / Comment(s): LEIDEN FACTOR Sister(s) History Unknown: Yes Family Medical History: Blood Disorder Additional Family Medical History / Comment(s): LEIDEN FACTOR Medications and Allergies Home Medications Medication Instructions Recorded Confirmed Type Cyanocobalamin (Vitamin B-12) 1,000 mcg PO DAILY 12/17/16 01/16/24 History [Vitamin B-12] Omeprazole [PriLOSEC] 20 mg PO DAILY 12/17/16 01/16/24 History Bumetanide [BUMEX] 1 mg PO BID 12/05/23 01/16/24 History Cholecalciferol [Vitamin D3 (125 125 mcg PO HS 12/05/23 01/16/24 History Mcg = 5000 Iu)] Fluticasone/Umeclidin/Vilanter 1 puff INHALATION RT-DAILY 12/05/23 01/16/24 History [Trelegy Ellipta 100-62.5-25] Gabapentin 300 mg PO TID 12/05/23 01/16/24 History Magnesium Oxide [Magox 400] 400 mg PO TID 12/05/23 01/16/24 History Montelukast [Singulair] 10 mg PO HS 12/05/23 01/16/24 History PARoxetine HCL [PARoxetine HCL Cr] 25 mg PO DAILY 12/05/23 01/16/24 History Rifaximin [Xifaxan] 550 mg PO BID 12/05/23 01/16/24 History Spironolactone [Aldactone] 25 mg PO DAILY 12/05/23 01/16/24 History Albuterol Inhaler [Ventolin Hfa 2 puff INHALATION RT-Q6H PRN 01/16/24 01/16/24 History Inhaler] Fexofenadine HCl [Ann Marie Allergy] 180 mg PO DAILY 01/16/24 01/16/24 History Lactulose 20 gm PO BID 01/16/24 01/16/24 History Vitamin E (Dl,Tocopheryl Acet) 400 unit PO DAILY 01/16/24 01/16/24 History [Vitamin E (400 Iu = 180 mg)] Allergies Allergy/AdvReac Type Severity Reaction Status Date / Time No Known Allergies Allergy Verified 01/16/24 15:00 Physical Exam Vitals: Vital Signs Temp Pulse Resp BP Pulse Ox 01/16/24 14:37 118 H 20 128/93 98 01/16/24 12:13 99.3 F 114 H 18 140/71 98 01/16/24 11:39 99.3 F 117 H 18 153/84 99 Intake and Output 01/16/24 01/16/24 01/16/24 06:59 14:59 22:59 Other: Weight 136.078 kg GENERAL DESCRIPTION: Middle-aged female lying in bed, no distress. No tachypnea or accessory muscle of respiration use. HEENT: Shows Pallor , no scleral icterus. Oral mucous membrane is dry. NECK: Trachea central, no thyromegaly. LUNGS: Unlabored breathing. Decreased breath sound at the base HEART: S1, S2, regular rate and rhythm. No loud murmur ABDOMEN: Soft, no tenderness , guarding or rigidity EXTREMITIES: Diffuse swelling and redness of the right lower extremity which is warm to touch SKIN: No rash, no masses palpable. NEUROLOGICAL: The patient is lethargic but arousable orientation could not be determined, no neck rigidity Results CBC & Chem 7: 01/16/24 12:26 01/17/24 03:11 Labs: Abnormal Lab Results - Last 24 Hours (Table) 01/16/24 01/16/24 01/16/24 Range/Units 12:22 12:22 12:22 WBC (3.8-10.6) k/uL Hgb (11.4-16.0) gm/dL RDW (11.5-15.5) % Neutrophils # (1.3-7.7) k/uL Lymphocytes # (1.0-4.8) k/uL Monocytes # (0-1.0) k/uL Sodium 136 L (137-145) mmol/L Chloride 109 H (98-107) mmol/L Carbon Dioxide 20 L (22-30) mmol/L Plasma Lactic Acid Paresh 2.5 H* (0.7-2.0) mmol/L Magnesium 1.0 L (1.6-2.3) mg/dL Total Bilirubin 4.8 H (0.2-1.3) mg/dL AST 57 H (14-36) U/L Alkaline Phosphatase 151 H (38-126) U/L Ammonia 36 H (<30) umol/L Urine Appearance Cloudy H (Clear) Urine Ketones Trace H (Negative) Urine Blood Small H (Negative) Urine RBC 7 H (0-5) /hpf Ur Squamous Epith Cells 13 H (0-4) /hpf Urine Mucus Occasional H (None) /hpf 01/16/24 Range/Units 12:26 WBC 19.2 H (3.8-10.6) k/uL Hgb 11.1 L (11.4-16.0) gm/dL RDW 19.2 H (11.5-15.5) % Neutrophils # 15.7 H (1.3-7.7) k/uL Lymphocytes # 0.9 L (1.0-4.8) k/uL Monocytes # 2.1 H (0-1.0) k/uL Sodium (137-145) mmol/L Chloride (98-107) mmol/L Carbon Dioxide (22-30) mmol/L Plasma Lactic Acid Paresh (0.7-2.0) mmol/L Magnesium (1.6-2.3) mg/dL Total Bilirubin (0.2-1.3) mg/dL AST (14-36) U/L Alkaline Phosphatase (38-126) U/L Ammonia (<30) umol/L Urine Appearance (Clear) Urine Ketones (Negative) Urine Blood (Negative) Urine RBC (0-5) /hpf Ur Squamous Epith Cells (0-4) /hpf Urine Mucus (None) /hpf Assessment and Plan (1) Sepsis Current Visit: Yes Status: Acute Code(s): A41.9 - SEPSIS, UNSPECIFIED ORGANISM SNOMED Code(s): 47524226 (2) Cellulitis of right leg Current Visit: Yes Status: Acute Code(s): L03.115 - CELLULITIS OF RIGHT LOWE R LIMB SNOMED Code(s): 18069293318397373 Plan: 1patient presented to hospital with mental status changes questionable hepatic encephalopathy this patient did have history of liver failure questionably related to SBP however the patient also noticed to have increasing swelling and redness to the right lower extremity and a possible component of right lower extremity cellulitis. 2marked area with redness of right lower extremity. 3patient benefit from diagnostic paracentesis and fluid should be sent for cell count differential and culture. 4continue with empiric vancomycin will also start the patient on cefepime pending workup completion. We will follow on clinical condition and cultures to further adjust medication if needed Thank you for this consultation we will follow the patient along with you Dictation was produced using [employer] dictation software. please excuse any grammatical, word or spelling errors. Time with Patient: Greater than 30
[2024-01-17] MEDS ORDERED: RIFAXIMIN 550 MG TABLET PO SCH (10:00)
[2024-01-17] MEDS: CYANOCOBALAMIN 500 MCG TAB PO SCH (10:47)
[2024-01-17] MEDS: LACTULOSE 20 GM/30 ML CUP PO SCH (10:47)
[2024-01-17] MEDS: PARoxetine 20 MG TAB PO SCH (10:47)
[2024-01-17] MEDS: BUMETANIDE 1 MG TAB PO SCH (10:47)
[2024-01-17] MEDS: VITAMIN E (DL,TOCOPHERYL ACET) 400 UNIT (180 MG) CAP PO SCH (10:48)
[2024-01-17] MEDS: SPIRONOLACTONE 25 MG TAB PO SCH (10:48)
[2024-01-17] MEDS: MAGNESIUM OXIDE 400 MG TAB PO SCH (10:48)
[2024-01-17] MEDS: PANTOPRAZOLE 40 MG TABLET PO SCH (10:48)
[2024-01-17] MEDS: GABAPENTIN 300 MG CAP PO SCH (10:48)
[2024-01-17 10:49] LABS: African American GFR (CKD) >90 (>60 ml/min/1.73 sqM); Anion Gap 4 mmol/L; Blood Urea Nitrogen 12 mg/dL (7-17); Carbon Dioxide 22 mmol/L (22-30); Chloride 110 mmol/L (98-107); Glucose 94 mg/dL (74-99); Magnesium 1.2 mg/dL (1.6-2.3); Non-African American GFR(CKD) >90 (>60 ml/min/1.73 sqM); Sodium 136 mmol/L (137-145)
[2024-01-17] MEDS: RIFAXIMIN 550 MG TAB (PTS OWN) PO SCH ×2 (12:29→21:28)
[2024-01-17] MEDS: NYSTATIN 100,000 UNIT/GM POWD 15 GM TOPICAL SCH (13:00)
[2024-01-17 14:39] LABS: Anisocytosis Slight; Basophils % (A) 0 %; Eosinophils # (A) 0.2 k/uL (0-0.7); Eosinophils % (A) 1 %; HCT 32.8 % (34.0-46.0); HGB 9.9 gm/dL (11.4-16.0); Hypochromasia Marked; Lymphocytes # (A) 0.5 k/uL (1.0-4.8); Lymphocytes % (A) 4 %; MCH 27.4 pg (25.0-35.0); MCHC 30.1 g/dL (31.0-37.0); Monocytes # (A) 1.3 k/uL (0-1.0); Monocytes % (A) 10 %; Neutrophils # (A) 10.2 k/uL (1.3-7.7); Neutrophils % (A) 81 %; Platelet Count 153 k/uL (150-450); RBC 3.61 m/uL (3.80-5.40); RDW 19.3 % (11.5-15.5); WBC 12.6 k/uL (3.8-10.6)
--- NOTE | 2024-01-17 14:54 | P.PN ---
Subjective Progress Note Date: 01/17/24 Principal diagnosis: Reason for follow-up is fever possible right leg cellulitis Patient is a 53-year-old female with a past medical history significant for reflux did have liver failure on transplant list patient has been brought into the hospital for evaluation of altered mental status for the last 3 to 4 days subsequently did spike a fever and there was concern for right lower extremity cellulitis and possible SBP. On today's evaluation that is 01/17/2024, Patient did have improvement in her fever pattern is afebrile this morning patient is slightly more awake and alert today and denies having any headache no chest pain shortness of breath or cough no abdominal pain. The patient white count is down to 12.6 creatinine 0.57 cultures are pending Objective - Vital Signs Vital signs: Vital Signs Temp 98.1 F 01/17/24 07:21 Pulse 101 H 01/17/24 07:21 Resp 18 01/17/24 07:21 BP 134/79 01/17/24 07:21 Pulse Ox 97 01/17/24 07:21 FiO2 Intake & Output 01/16/24 01/17/24 01/17/24 18:59 06:59 18:59 Intake Total 1190 Output Total 500 Balance 690 Weight 166.2 kg 166.2 kg Intake: Intake, IV Titration 600 Amount Cefepime 2 gm In Sodium 100 Chloride 0.9% 100 ml @ 25 mls/hr IVPB Q8HR [place] Rx# :[id number] Vancomycin 2,000 mg In 500 Sodium Chloride 0.9% 500 ml 500 ml @ 167 mls/hr IVPB Q12H [facility] Rx#: [id number] Oral 590 Output: Urine 500 Other: Voiding Method Indwelling Catheter Indwelling Catheter - Exam GENERAL DESCRIPTION: Middle-age female lying in bed in no distress RESPIRATORY SYSTEM: Unlabored breathing , decreased breath sounds at bases HEART: S1 S2 regular rate and rhythm , ABDOMEN: Soft , no tenderness EXTREMITIES: Right leg redness has slightly decreased have some swelling - Labs CBC & Chem 7: 01/17/24 14:12 01/17/24 10:16 Labs: Abnormal Lab Results - Last 24 Hours (Table) 01/16/24 01/16/24 01/16/24 Range/Units 12:22 12:22 12:22 WBC (3.8-10.6) k/uL Hgb (11.4-16.0) gm/dL RDW (11.5-15.5) % Neutrophils # (1.3-7.7) k/uL Lymphocytes # (1.0-4.8) k/uL Monocytes # (0-1.0) k/uL PT 14.0 H (10.0-12.5) sec INR 1.3 H (<1.2) Sodium 136 L (137-145) mmol/L Chloride 109 H (98-107) mmol/L Carbon Dioxide 20 L (22-30) mmol/L Plasma Lactic Acid Paresh 2.5 H* (0.7-2.0) mmol/L Magnesium 1.0 L (1.6-2.3) mg/dL Total Bilirubin 4.8 H (0.2-1.3) mg/dL AST 57 H (14-36) U/L Alkaline Phosphatase 151 H (38-126) U/L Ammonia 36 H (<30) umol/L Urine Appearance (Clear) Urine Ketones (Negative) Urine Blood (Negative) Urine RBC (0-5) /hpf Ur Squamous Epith Cells (0-4) /hpf Urine Mucus (None) /hpf 01/16/24 01/16/24 01/17/24 Range/Units 12:22 12:26 10:16 WBC 19.2 H (3.8-10.6) k/uL Hgb 11.1 L (11.4-16.0) gm/dL RDW 19.2 H (11.5-15.5) % Neutrophils # 15.7 H (1.3-7.7) k/uL Lymphocytes # 0.9 L (1.0-4.8) k/uL Monocytes # 2.1 H (0-1.0) k/uL PT (10.0-12.5) sec INR (<1.2) Sodium 136 L (137-145) mmol/L Chloride 110 H (98-107) mmol/L Carbon Dioxide (22-30) mmol/L Plasma Lactic Acid Paresh (0.7-2.0) mmol/L Magnesium 1.2 L (1.6-2.3) mg/dL Total Bilirubin (0.2-1.3) mg/dL AST (14-36) U/L Alkaline Phosphatase (38-126) U/L Ammonia (<30) umol/L Urine Appearance Cloudy H (Clear) Urine Ketones Trace H (Negative) Urine Blood Small H (Negative) Urine RBC 7 H (0-5) /hpf Ur Squamous Epith Cells 13 H (0-4) /hpf Urine Mucus Occasional H (None) /hpf 01/17/24 Range/Units 10:16 WBC (3.8-10.6) k/uL Hgb (11.4-16.0) gm/dL RDW (11.5-15.5) % Neutrophils # (1.3-7.7) k/uL Lymphocytes # (1.0-4.8) k/uL Monocytes # (0-1.0) k/uL PT (10.0-12.5) sec INR (<1.2) Sodium (137-145) mmol/L Chloride (98-107) mmol/L Carbon Dioxide (22-30) mmol/L Plasma Lactic Acid Paresh (0.7-2.0) mmol/L Magnesium (1.6-2.3) mg/dL Total Bilirubin (0.2-1.3) mg/dL AST (14-36) U/L Alkaline Phosphatase (38-126) U/L Ammonia 40 H (<30) umol/L Urine Appearance (Clear) Urine Ketones (Negative) Urine Blood (Negative) Urine RBC (0-5) /hpf Ur Squamous Epith Cells (0-4) /hpf Urine Mucus (None) /hpf Assessment and Plan (1) Sepsis Current Visit: Yes Status: Acute Code(s): A41.9 - SEPSIS, UNSPECIFIED ORGANISM SNOMED Code(s): 76497817 (2) Cellulitis of right leg Current Visit: Yes Status: Acute Code(s): L03.115 - CELLULITIS OF RIGHT LOWER LIMB SNOMED Code(s): 74716454561183908 Plan: 1patient presented to hospital with mental status changes questionable hepatic encephalopathy this patient did have history of liver failure questionably related to SBP however the patient also noticed to have increasing swelling and redness to the right lower extremity and a possible component of right lower extremity cellulitis. 2patient benefit from diagnostic paracentesis and fluid should be sent for cell count differential and culture. 3patient did have resolution of her fever improvement in the mentation to continue with the cefepime and Vanco while waiting for the culture to finalize Dictation was produced using Weaved dictation software. please excuse any grammatical, word or spelling errors. Time with Patient: Less than 30
--- NOTE | 2024-01-17 17:12 | P.CNNES ---
History of Present Illness Consult date: 01/17/24 Requesting physician: Vega Young Reason for Consult: Altered mental status History of Present Illness: Patient is a 53-year-old female with longstanding history of chronic liver disease, with periodic episodes of hepatic encephalopathy came to the hospital by ambulance yesterday at 11:29 AM for altered mental status. Patient's , and her parents are present, who provided with a history. Patient has been confused started about 2 or 3 days ago. They called the ambulance. It was suspected that patient will have elevated ammonia, but it was 36. Neurology was consulted for altered mental status. As per EMS flowsheet, family mentioned that patient began having some mental status change on Friday, 2 days prior to their arrival, that has progressed to today when she is having trouble following simple direction. Patient is noted to have liver failure and is working with the [facility] for possible transplant. Patient is noted to have had elevated ammonia levels previously with similar presentation. Patient's vitals at the scene was blood pressure 157/94, pulse rate 116, saturation 97%. Blood sugar was 119. Blood test shows WBC 19.2 hemoglobin 11.1, platelets are normal. INR 1.3. Sodium 136 potassium is normal, renal functions normal. Ammonia is 36, AST 57, ALT 34. Lipase normal, UA negative, influenza, RSV and coronavirus PCR negative. Lactate was 2.5. EKG shows sinus tachycardia, CT head revealed motion degraded exam with no gross evidence of acute intracranial process. I personally reviewed CT head, agree with the findings. Chest x-ray showed moderate cardiomegaly with diffuse patchy opacities throughout the lungs which may represent pulmonary edema versus infiltrate/pneumonia. Patient's mentioned that patient has been diagnosed with nonalcohol fatty liver disease. Patient had undergone cholecystectomy 18 years ago after which she developed "blood clot in the hepatic duct" for which she underwent stenting. Patient then underwent splenorenal shunt 8 years ago and after that patient started having episodes of hepatic encephalopathy. Typically each episode last for about 2 or 3 days. Patient has gone to [facility] in [facility], for possible liver transplant, but her MELD score is only 11. Patient denies any headache, any chest pain, shortness of breath. She does have some redness of the skin of her right lower leg, concerning for cellulitis. Patient's parent states that she is unsteady on her feet, and often uses a cane, sometimes walker. No history of alcohol or tobacco use. Patient's current medication includes lactulose, Ann Marie, Bumex, vitamin D, Paxil 25 mg, magnesium, gabapentin 3 mg 3 times daily, Singulair, Xifaxan, Aldactone, B12 and omeprazole. Review of Systems All pertinent positive and negative review of systems mentioned in the HPI, otherwise unremarkable. Constitutional: Reports fatigue, Reports fever, Reports lethargy, Reports malaise Ears, nose, mouth and throat: Denies dysphagia, Denies headache Past Medical History Past Medical History: Blood Disorder, GERD/Reflux, Liver Disease Additional Past Medical History / Comment(s): PROTHROMBIN GENE MUTATION, HX BLOOD CLOT IN PORTAL VEIN X7 YEARS., HAS INTERNAL NERVE PAIN D/T THIS. HEAVY & IRREG MENSES, ANEMIA; HAD IRON INFUSIONS X2 11/28, 12/05/16. History of Any Multi-Drug Resistant Organisms: None Reported Past Surgical History: Cholecystectomy, Joint Replacement Additional Past Surgical History / Comment(s): PARTIAL MATTHEW KNEE REPLACEMENT. Past Anesthesia/Blood Transfusion Reactions: Motion Sickness, Postoperative Nausea & Vomiting (PONV) Past Psychological History: Anxiety Smoking Status: Former smoker Past Alcohol Use History: None Reported Past Drug Use History: None Reported - Past Family History Mother History Unknown: Yes Family Medical History: Blood Disorder Additional Family Medical History / Comment(s): LEIDEN FACTOR Sister(s) History Unknown: Yes Family Medical History: Blood Disorder Additional Family Medical History / Comment(s): LEIDEN FACTOR Medications and Allergies Home Medications Medication Instructions Recorded Confirmed Type Cyanocobalamin (Vitamin B-12) 1,000 mcg PO DAILY 12/17/16 01/16/24 History [Vitamin B-12] Omeprazole [PriLOSEC] 20 mg PO DAILY 12/17/16 01/16/24 History Bumetanide [BUMEX] 1 mg PO BID 12/05/23 01/16/24 History Cholecalciferol [Vitamin D3 (125 125 mcg PO HS 12/05/23 01/16/24 History Mcg = 5000 Iu)] Fluticasone/Umeclidin/Vilanter 1 puff INHALATION RT-DAILY 12/05/23 01/16/24 History [Trelegy Ellipta 100-62.5-25] Gabapentin 300 mg PO TID 12/05/23 01/16/24 History Magnesium Oxide [Magox 400] 400 mg PO TID 12/05/23 01/16/24 History Montelukast [Singulair] 10 mg PO HS 12/05/23 01/16/24 History PARoxetine HCL [PARoxetine HCL Cr] 25 mg PO DAILY 12/05/23 01/16/24 History Rifaximin [Xifaxan] 550 mg PO BID 12/05/23 01/16/24 History Spironolactone [Aldactone] 25 mg PO DAILY 12/05/23 01/16/24 History Albuterol Inhaler [Ventolin Hfa 2 puff INHALATION RT-Q6H PRN 01/16/24 01/16/24 History Inhaler] Fexofenadine HCl [Ann Marie Allergy] 180 mg PO DAILY 01/16/24 01/16/24 History Lactulose 20 gm PO BID 01/16/24 01/16/24 History Vitamin E (Dl,Tocopheryl Acet) 400 unit PO DAILY 01/16/24 01/16/24 History [Vitamin E (400 Iu = 180 mg)] Allergies Allergy/AdvReac Type Severity Reaction Status Date / Time No Known Allergies Allergy Verified 01/16/24 15:00 Physical Examination - Vital Signs Vital Signs: Vital Signs Temp Pulse Pulse Resp BP BP Pulse Ox 01/17/24 07:21 98.1 F 101 H 18 134/79 97 01/17/24 02:00 98.9 F 105 H 16 109/71 98 01/16/24 23:15 99.3 F 01/16/24 21:45 20 01/16/24 21:08 100.4 F H 112 H 16 134/72 98 01/16/24 20:05 99.4 F 112 H 18 143/74 98 01/16/24 20:00 101.2 F H 114 H 20 140/78 97 01/16/24 16:34 100.8 F H 117 H 20 135/66 98 Intake and Output 01/17/24 01/17/24 01/17/24 06:59 14:59 22:59 Intake Total 1190 Output Total 500 Balance 690 Intake: Intake, IV Titration 600 Amount Cefepime 2 gm In Sodium 100 Chloride 0.9% 100 ml @ 25 mls/hr IVPB Q8HR [facility] Rx# :[id number] Vancomycin 2,000 mg In 500 Sodium Chloride 0.9% 500 ml 500 ml @ 167 mls/hr IVPB Q12H [facility] Rx#: [id number] Oral 590 Output: Urine 500 Other: Voiding Method Indwelling Catheter Weight 166.2 kg Patient is a middle aged female, who was somnolent, but does wake up during the interview. Patient appears encephalopathic. Patient did become alert awake, but is quite disoriented. Patient could not tell the month or the year or the city or state or the county she lives in. She believes the season is "", perhaps she means spring. Speech is fluent, with no aphasia or dysarthria. Patient was able to name some objects presented like eyeglasses and finger, but could not tell "knuckles". Patient was able to repeat. Could not tell name of the current president. No aphasia or d ysarthria. Attention, concentration is moderately impaired and fund of knowledge is severely limited. On cranial nerve examination, pupils are equal, round and reacting to light, visual cerrato are full on confrontation, with no neglect on double simultaneous stimulation. Extraocular muscles are intact with no nystagmus. Face is symmetric, tongue protrudes to the midline. Palatal elevation and sensation normal, hearing and shoulder shrug normal, facial sensation normal. On muscle strength testing, there is no pronator drift and the strength is normal in arms and legs distally and proximally. Patient has very mild fine tremor of outstretched hands, but no obvious asterixis. Deep tendon reflexes are symmetric, diminished and plantars are flat. Sensory to touch is equal with no neglect on double simultaneous stimulation. Cerebellar function showed no ataxia for [id number] testing. Difficulty with checking for [id number] testing. Tone and bulk of muscles normal. Gait deferred.. On general examination, there is no carotid bruit or murmur, S1-S2 audible. Chest is clear on consultation. Abdomen is soft nontender. No organomegaly, bowel sounds present. Patient has peripheral edema. Patient has redness of the skin of the right lower leg more than the left, concerning for cellulitis. It is also warm to touch. Results - Laboratory Findings CBC and BMP: 01/17/24 14:12 01/17/24 10:16 Abnormal Lab Findings: Abnormal Labs 01/16/24 01/16/24 01/16/24 12:22 12:22 12:22 WBC RBC Hgb Hct MCHC RDW Neutrophils # Lymphocytes # Monocytes # PT 14.0 H INR 1.3 H Sodium 136 L Chloride 109 H Carbon Dioxide 20 L Plasma Lactic Acid Paresh 2.5 H* Magnesium 1.0 L Total Bilirubin 4.8 H AST 57 H Alkaline Phosphatase 151 H Ammonia 36 H Urine Appearance Urine Ketones Urine Blood Urine RBC Ur Squamous Epith Cells Urine Mucus 01/16/24 01/16/24 01/17/24 12:22 12:26 10:16 WBC 19.2 H RBC Hgb 11.1 L Hct MCHC RDW 19.2 H Neutrophils # 15.7 H Lymphocytes # 0.9 L Monocytes # 2.1 H PT INR Sodium 136 L Chloride 110 H Carbon Dioxide Plasma Lactic Acid Paresh Magnesium 1.2 L Total Bilirubin AST Alkaline Phosphatase Ammonia Urine Appearance Cloudy H Urine Ketones Trace H Urine Blood Small H Urine RBC 7 H Ur Squamous Epith Cells 13 H Urine Mucus Occasional H 01/17/24 01/17/24 10:16 14:12 WBC 12.6 H RBC 3.61 L Hgb 9.9 L Hct 32.8 L MCHC 30.1 L RDW 19.3 H Neutrophils # 10.2 H Lymphocytes # 0.5 L Monocytes # 1.3 H PT INR Sodium Chloride Carbon Dioxide Plasma Lactic Acid Paresh Magnesium Total Bilirubin AST Alkaline Phosphatase Ammonia 40 H Urine Appearance Urine Ketones Urine Blood Urine RBC Ur Squamous Epith Cells Urine Mucus Assessment and Plan Assessment: * Altered mental status, likely due to metabolic/hepatic encephalopathy. Patient's ammonia level is mildly elevated 40. Other reasons as mentioned below. Patient denies headache, therefore no evidence of intracranial infection. * Leukocytosis, probable sepsis. * Cellulitis of the right leg. * Anemia * Hepatic cirrhosis * Obesity * History of NAFLD * History of splenorenal renal shunt Plan: * Patient's ammonia is mildly elevated at 40. Continue lactulose. Follow-up ammonia levels. * ID on board, patient started on cefepime and vancomycin. Patient to undergo diagnostic paracentesis. * Check EEG. * Check B12, folate, TSH * Other management as per IM and other specialties on board. * Dr. Som Sutherland will resume neurology service from Friday morning. * Thank you for the consult.
[2024-01-17] MEDS: CHOLECALCIFEROL 125 MCG (5000 IU) TABLET PO SCH (21:28)
[2024-01-17] MEDS: MONTELUKAST 10 MG TAB PO SCH (21:28)
--- NOTE | 2024-01-17 22:01 | US ---
EXAMINATION TYPE: US abdomen limited DATE OF EXAM: 01/17/2024 COMPARISON: 12/06/2023 CLINICAL INDICATION: Female, 53 years old with history of Possible ascites, diagnostic.; Ascites. Technique: Grayscale imaging of the abdomen for ascites. FINDINGS: No fluid visualized. IMPRESSION: No significant free fluid in the abdomen identified. [facility] Alina Murphy, , 01/17/2024 9:58 PM
--- NOTE | 2024-01-17 22:33 | P.HPIM ---
History of Present Illness H&P Date: 01/17/24 Chief Complaint: Altered mental status Patient is a 53-year-old female with a known history of nonalcoholic liver cirrhosis, prior history of hepatic encephalopathy, GERD, prior history of hepatic vein thrombosis 7 years ago, status post splenorenal shunt placement, anxiety and prior history of smoking. Patient was brought to ER by her due to altered mental status. Patient is on list for liver transplant. Patient has been having worsening confusion for the past 3 to 4 days. According to her patient usually gets confused with higher ammonia level. This time he was mumbling and talking to herself which is difficult to control. Patient does take lactulose at home. She was given rectal lactulose in the ER. Patient was febrile with Tmax 101.2, was tachycardic on admission. Currently on room air. On admission EKG showed sinus tachycardia CT head showed motion degraded examination with no gross evidence of acute intracranial process. Chest x-ray showed moderate cardiomegaly with diffuse patchy opacities throughout the lungs which may represent pulmonary edema versus infiltrate/pneumonia. Influenza, RSV, COVID-19 PCR not detected. Laboratory showed WBC 19.2, hemoglobin 11.1 and platelets 188 INR 1.3 sodium 136 potassium 4.3 chloride 109 bicarb is 20 BUN 10 and creatinine 0.54 and lactic acid 2.5 on admission magnesium 1.0 bilirubin level 4.8 AST 57 ALT 34 and alk phos 151 ammonia 36 on admission Urinalysis showed cloudy, trace ketones, small blood and RBCs 7 and squamous epithelial cells 13.Patient usually walks with a cane or a walker. She noticed to have right ankle and lower extremity redness and swelling. Review of Systems Complete review of systems could not be obtained from the patient except as per HPI Past Medical History Past Medical History: Blood Disorder, GERD/Reflux, Liver Disease Additional Past Medical History / Comment(s): PROTHROMBIN GENE MUTATION, HX BLOOD CLOT IN PORTAL VEIN X7 YEARS., HAS INTERNAL NERVE PAIN D/T THIS. HEAVY & IRREG MENSES, ANEMIA; HAD IRON INFUSIONS X2 11/28, 12/05/16. History of Any Multi-Drug Resistant Organisms: None Reported Past Surgical History: Cholecystectomy, Joint Replacement Additional Past Surgical History / Comment(s): PARTIAL MATTHEW KNEE REPLACEMENT. Past Anesthesia/Blood Transfusion Reactions: Motion Sickness, Postoperative Nausea & Vomiting (PONV) Past Psychological History: Anxiety Smoking Status: Former smoker Past Alcohol Use History: None Reported Past Drug Use History: None Reported - Past Family History Mother History Unknown: Yes Family Medical History: Blood Disorder Additional Family Medical History / Comment(s): LEIDEN FACTOR Sister(s) History Unknown: Yes Family Medical History: Blood Disorder Additional Family Medical History / Comment(s): LEIDEN FACTOR Medications and Allergies Home Medications Medication Instructions Recorded Confirmed Type Cyanocobalamin (Vitamin B-12) 1,000 mcg PO DAILY 12/17/16 01/16/24 History [Vitamin B-12] Omeprazole [PriLOSEC] 20 mg PO DAILY 12/17/16 01/16/24 History Bumetanide [BUMEX] 1 mg PO BID 12/05/23 01/16/24 History Cholecalciferol [Vitamin D3 (125 125 mcg PO HS 12/05/23 01/16/24 History Mcg = 5000 Iu)] Fluticasone/Umeclidin/Vilanter 1 puff INHALATION RT-DAILY 12/05/23 01/16/24 History [Trelegy Ellipta 100-62.5-25] Gabapentin 300 mg PO TID 12/05/23 01/16/24 History Magnesium Oxide [Magox 400] 400 mg PO TID 12/05/23 01/16/24 History Montelukast [Singulair] 10 mg PO HS 12/05/23 01/16/24 History PARoxetine HCL [PARoxetine HCL Cr] 25 mg PO DAILY 12/05/23 01/16/24 History Rifaximin [Xifaxan] 550 mg PO BID 12/05/23 01/16/24 History Spironolactone [Aldactone] 25 mg PO DAILY 12/05/23 01/16/24 History Albuterol Inhaler [Ventolin Hfa 2 puff INHALATION RT-Q6H PRN 01/16/24 01/16/24 History Inhaler] Fexofenadine HCl [Ann Marie Allergy] 180 mg PO DAILY 01/16/24 01/16/24 History Lactulose 20 gm PO BID 01/16/24 01/16/24 History Vitamin E (Dl,Tocopheryl Acet) 400 unit PO DAILY 01/16/24 01/16/24 History [Vitamin E (400 Iu = 180 mg)] Allergies Allergy/AdvReac Type Severity Reaction Status Date / Time No Known Allergies Allergy Verified 01/16/24 15:00 Physical Exam Vitals: Vital Signs Temp Pulse Pulse Resp BP BP Pulse Ox 01/17/24 07:21 98.1 F 101 H 18 134/79 97 01/17/24 02:00 98.9 F 105 H 16 109/71 98 01/16/24 23:15 99.3 F 01/16/24 21:45 20 01/16/24 21:08 100.4 F H 112 H 16 134/72 98 01/16/24 20:05 99.4 F 112 H 18 143/74 98 01/16/24 20:00 101.2 F H 114 H 20 140/78 97 01/16/24 16:34 100.8 F H 117 H 20 135/66 98 01/16/24 15:50 115 H 20 140/66 97 01/16/24 14:37 118 H 20 128/93 98 01/16/24 12:13 99.3 F 114 H 18 140/71 98 01/16/24 11:39 99.3 F 117 H 18 153/84 99 Intake and Output 01/16/24 01/17/24 01/17/24 22:59 06:59 14:59 Intake Total 1190 Output Total 500 Balance 690 Intake: Intake, IV Titration 600 Amount Cefepime 2 gm In Sodium 100 Chloride 0.9% 100 ml @ 25 mls/hr IVPB Q8HR [facility] Rx# :[id number] Vancomycin 2,000 mg In 500 Sodium Chloride 0.9% 500 ml 500 ml @ 167 mls/hr IVPB Q12H [facility] Rx#: [id number] Oral 590 Output: Urine 500 Other: Voiding Method Indwelling Catheter Indwelling Catheter Weight 166.2 kg 166.2 kg PHYSICAL EXAMINATION: Patient is lying in the bed,, no acute distress, awake alert and oriented x 2-3. Morbidly obese. HEENT: Normocephalic. Neck is supple. Pupils reactive. Nostrils clear. Oral cavity is moist. Neck reveals no JVD, carotid bruits, or thyromegaly. CHEST EXAMINATION: Trachea is central. Symmetrical expansion. Lung cerrato clear to auscultation and percussion. CARDIAC: Normal S1, S2 with no gallops. No murmurs ABDOMEN: Soft. Bowel sounds normal. No organomegaly. No abdominal bruits. Extremities: Right lower extremity/ankle redness extending up to the mid guerra region. Warm to touch. Mild tenderness.. No clubbing or cyanosis Neurologically awake, alert, oriented x 2-3 able to move all extremities. No gross focal deficits noted Skin: No rash or skin lesions. Psychiatric: Coperative. Nonsuicidal Musculoskeletal: No joint swelling or deformity. Results CBC & Chem 7: 01/17/24 14:12 01/17/24 10:16 Labs: Abnormal Lab Results - Last 24 Hours (Table) 01/16/24 01/16/24 01/16/24 Range/Units 12:22 12:22 12:22 WBC (3.8-10.6) k/uL Hgb (11.4-16.0) gm/dL RDW (11.5-15.5) % Neutrophils # (1.3-7.7) k/uL Lymphocytes # (1.0-4.8) k/uL Monocytes # (0-1.0) k/uL PT 14.0 H (10.0-12.5) sec INR 1.3 H (<1.2) Sodium 136 L (137-145) mmol/L Chloride 109 H (98-107) mmol/L Carbon Dioxide 20 L (22-30) mmol/L Plasma Lactic Acid Paresh 2.5 H* (0.7-2.0) mmol/L Magnesium 1.0 L (1.6-2.3) mg/dL Total Bilirubin 4.8 H (0.2-1.3) mg/dL AST 57 H (14-36) U/L Alkaline Phosphatase 151 H (38-126) U/L Ammonia 36 H (<30) umol/L Urine Appearance (Clear) Urine Ketones (Negative) Urine Blood (Negative) Urine RBC (0-5) /hpf Ur Squamous Epith Cells (0-4) /hpf Urine Mucus (None) /hpf 01/16/24 01/16/24 Range/Units 12:22 12:26 WBC 19.2 H (3.8-10.6) k/uL Hgb 11.1 L (11.4-16.0) gm/dL RDW 19.2 H (11.5-15.5) % Neutrophils # 15.7 H (1.3-7.7) k/uL Lymphocytes # 0.9 L (1.0-4.8) k/uL Monocytes # 2.1 H (0-1.0) k/uL PT (10.0-12.5) sec INR (<1.2) Sodium (137-145) mmol/L Chloride (98-107) mmol/L Carbon Dioxide (22-30) mmol/L Plasma Lactic Acid Paresh (0.7-2.0) mmol/L Magnesium (1.6-2.3) mg/dL Total Bilirubin (0.2-1.3) mg/dL AST (14-36) U/L Alkaline Phosphatase (38-126) U/L Ammonia (<30) umol/L Urine Appearance Cloudy H (Clear) Urine Ketones Trace H (Negative) Urine Blood Small H (Negative) Urine RBC 7 H (0-5) /hpf Ur Squamous Epith Cells 13 H (0-4) /hpf Urine Mucus Occasional H (None) /hpf Thrombosis Risk Factor Assmnt - DVT/VTE Prophylaxis DVT/VTE Prophylaxis: Pharmacologic Prophylaxis ordered Assessment and Plan Assessment: Altered mental status secondary to acute metabolic encephalopathy due to infection and mild hepatic encephalopathy. Right lower extremity cellulitis Sepsis secondary to above Diffuse patchy opacities in the lung. Pulm edema versus infection. Procalcitonin level and repeat chest x-ray. Lactic acidosis 2.5 admission History of portal vein thrombosis and also history of splenorenal shunt placement Prothrombin gene mutation Anxiety Prior to smoking DVT prophylaxis with heparin subcu Plan: Patient was given fluid bolus in the ER. Lactic acidosis has normalized. Cont inue with broad-spectrum antibiotics vancomycin and cefepime. Follow-up repeat chest x-ray and procalcitonin level. Follow-up blood cultures. Continue with home medications including lactulose. Neurology and ID is on board. Follow-up closely. Discussed with her at bedside in detail. Time with Patient: Greater than 30
[2024-01-18] MEDS: HEPARIN SODIUM,PORCINE 5,000 UNIT/ML 1 ML VIAL SQ SCH (00:02)
[2024-01-18 06:35] LABS: ALT 28 U/L (4-34); AST 36 U/L (14-36); African American GFR (CKD) >90 (>60 ml/min/1.73 sqM); Albumin 2.6 g/dL (3.5-5.0); Alkaline Phosphatase 119 U/L (38-126); Anion Gap 1 mmol/L; Blood Urea Nitrogen 16 mg/dL (7-17); Calcium 8.4 mg/dL (8.4-10.2); Carbon Dioxide 22 mmol/L (22-30); Chloride 112 mmol/L (98-107); Globulin 2.5 g/dL; Glucose 115 mg/dL (74-99); Non-African American GFR(CKD) 79 (>60 ml/min/1.73 sqM); Potassium 3.7 mmol/L (3.5-5.1); Sodium 135 mmol/L (137-145); Total Bilirubin 1.8 mg/dL (0.2-1.3); Total Protein 5.1 g/dL (6.3-8.2)
--- NOTE | 2024-01-18 07:18 | XR ---
EXAMINATION TYPE: XR chest 1V DATE OF EXAM: 01/18/2024 5:24 AM COMPARISON: Chest radiographs from 01/16/2024 CLINICAL INDICATION: Female, 53 years old with history of Pulmonary edema; [facility] TECHNIQUE: XR chest 1V Frontal view of the chest. FINDINGS: Lungs/Pleura: There is no evidence of pleural effusion, focal consolidation, or pneumothorax. Pulmonary vascularity: Pulmonary vascular congestion. Heart/mediastinum: Cardiomediastinal silhouette is enlarged. Musculoskeletal: No acute osseous pathology. IMPRESSION: Improved aeration of lungs with persistent cardiomegaly and mild pulmonary vascular congestion. Corre late with BNP for congestive heart failure. [facility], , 01/18/2024 7:16 AM
[2024-01-18] MEDS: IPRATROPIUM 0.5 MG/2.5 ML NEBU INHALATION SCH (07:52)
[2024-01-18] MEDS: SYMBICORT 80-4.5 MCG INHALER INHALATION SCH (07:52)
[2024-01-18 08:58] LABS: HCT 32.6 % (37.2-46.3); HGB 9.8 g/dL (12.0-15.0); MCH 27.3 pg (27.0-32.0); MCHC 30.1 g/dL (32.0-37.0); MCV 90.8 FL (80.0-97.0); Mean Platelet Volume 11.9 FL (9.5-12.2); NRBC Per 100 WBC 0 X 10*3/uL (0.00-0.01); Platelet Count 170 X 10*3/uL (140-440); RBC 3.59 X 10*6/uL (4.10-5.20); RDW 21.3 % (11.5-14.5); WBC 9.74 X 10*3/uL (4.50-10.00)
[2024-01-18 09:41] LABS: Basophils # (A) 0.08 X 10*3/uL (0.00-0.10); Basophils % (A) 0.8 %; Eosinophils # (A) 0.41 X 10*3/uL (0.04-0.35); Eosinophils % (A) 4.2 %; Lymphocytes # (A) 0.67 X 10*3/uL (0.90-5.00); Lymphocytes % (A) 6.9 %; Monocytes # (A) 2.52 X 10*3/uL (0.20-1.00); Monocytes % (A) 25.9 %; Neutrophils # (A) 6.01 X 10*3/uL (1.80-7.70); Neutrophils % (A) 61.7 %
[2024-01-18 09:42] LABS: RBC Morphology Normal (Normal)
[2024-01-18 09:44] LABS: Vitamin B12 >1800.0 pg/mL (200.0-944.0)
--- NOTE | 2024-01-18 15:00 | P.PN ---
Subjective Progress Note Date: 01/18/24 Principal diagnosis: Reason for follow-up is fever possible right leg cellulitis Patient is a 53-year-old female with a past medical history significant for reflux did have liver failure on transplant list patient has been brought into the hospital for evaluation of altered mental status for the last 3 to 4 days subsequently did spike a fever and there was concern for right lower extremity cellulitis and possible SBP. On today's evaluation that is 01/18/2024, patient has been afebrile, patient is more awake and alert today breathing comfortably and is currently on room air, patient denies having any significant cough no chest pain, patient denies nausea vomiting or diarrhea and no abdominal pain overall swelling to the right lower extremity has decreased in intensity. Patient white count normalized to 9.74, creatinine 0.84 blood culture with gram- positive cocci Objective - Vital Signs Vital signs: Vital Signs Temp 98.6 F 01/18/24 13:45 Pulse 98 01/18/24 13:45 Resp 16 01/18/24 13:45 BP 124/75 01/18/24 13:45 Pulse Ox 94 L 01/18/24 13:45 FiO2 Intake & Output 01/17/24 01/18/24 01/18/24 19:59 06:59 18:59 Intake Total Output Total 2100 Balance -2100 Intake: Intake, IV Titration Amount Cefepime 2 gm In Sodium Chloride 0.9% 100 ml @ 25 mls/hr IVPB Q8HR [facility] Rx# :[id number] Sodium Chloride 0.9% 1, 000 ml @ 20 mls/hr IV . Q24H [facility] Rx#:[id number] Vancomycin 2,000 mg In Sodium Chloride 0.9% 500 ml 500 ml @ 167 mls/hr IVPB Q12H [facility] Rx#: [id number] Oral Output: Urine 2100 Other: Voiding Method Indwelling Catheter - Exam GENERAL DESCRIPTION: Middle-age female lying in bed in no distress RESPIRATORY SYSTEM: Unlabored breathing , decreased breath sounds at bases HEART: S1 S2 regular rate and rhythm , ABDOMEN: Soft , no tenderness EXTREMITIES: Right leg redness has slightly decreased have some swelling - Labs CBC & Chem 7: 01/18/24 05:40 01/18/24 05:40 Labs: Abnormal Lab Results - Last 24 Hours (Table) 01/18/24 01/18/24 01/18/24 Range/Units 05:40 05:40 05:40 RBC 3.59 L (4.10-5.20) X 10*6/uL Hgb 9.8 L (12.0-15.0) g/dL Hct 32.6 L (37.2-46.3) % MCHC 30.1 L (32.0-37.0) g/dL RDW 21.3 H (11.5-14.5) % Immature Gran # 0.05 H (0.00-0.04) X 10*3/uL Lymphocytes # 0.67 L (0.90-5.00) X 10*3/uL Monocytes # 2.52 H (0.20-1.00) X 10*3/uL Eosinophils # 0.41 H (0.04-0.35) X 10*3/uL Sodium 135 L (137-145) mmol/L Chloride 112 H (98-107) mmol/L Glucose 115 H (74-99) mg/dL Total Bilirubin 1.8 H (0.2-1.3) mg/dL Total Protein 5.1 L (6.3-8.2) g/dL Albumin 2.6 L (3.5-5.0) g/dL Vitamin B12 >1800.0 H (200.0-944.0) pg/mL Microbiology - Last 24 Hours (Table) 01/16/24 12:22 Blood Culture Gram Stain - Preliminary Blood Blood Culture - Preliminary Assessment and Plan (1) Sepsis Current Visit: Yes Status: Acute Code(s): A41.9 - SEPSIS, UNSPECIFIED ORGANISM SNOMED Code(s): 04123603 (2) Cellulitis of right leg Current Visit: Yes Status: Acute Code(s): L03.115 - CELLULITIS OF RIGHT LOWER LIMB SNOMED Code(s): 03127451939026927 (3) Positive blood culture Current Visit: Yes Status: Acute Code(s): R78.81 - BACTEREMIA SNOMED Code(s): 299015298 Plan: 1patient presented to hospital with mental status changes questionable hepatic encephalopathy this patient did have history of liver failure questionably related to SBP however the patient also noticed to have increasing swelling and redness to the right lower extremity and a possible component of right lower extremity cellulitis. 2patient seem to have shown clinical improvement and more likely pointed to his right lower extremity cellulitis with diffuse swelling redness likely streptococcal disease 3-positive blood culture with gram-positive cocci which could not be identified by bio fire possible contamination 4-I will discontinue vancomycin and cefepime start the patient cefazolin 2 g every 8 hours Dictation was produced using [employer] dictation software. please excuse any grammatical, word or spelling errors. Time with Patient: Less than 30
[2024-01-19] MEDS ORDERED: VANCOMYCIN TROUGH DUE 1 EACH MISC MISCELLANE ONE (03:00)
[2024-01-19 08:20] LABS: HCT 30.3 % (37.2-46.3); HGB 9.5 g/dL (12.0-15.0); MCH 27.8 pg (27.0-32.0); MCHC 31.4 g/dL (32.0-37.0); MCV 88.6 FL (80.0-97.0); Mean Platelet Volume 12.2 FL (9.5-12.2); NRBC Per 100 WBC 0 X 10*3/uL (0.00-0.01); Platelet Count 158 X 10*3/uL (140-440); RBC 3.42 X 10*6/uL (4.10-5.20); RDW 21.1 % (11.5-14.5)
[2024-01-19 08:21] LABS: Basophils # (A) 0.07 X 10*3/uL (0.00-0.10); Basophils % (A) 0.7 %; Eosinophils # (A) 0.56 X 10*3/uL (0.04-0.35); Eosinophils % (A) 5.8 %; Lymphocytes # (A) 1.09 X 10*3/uL (0.90-5.00); Lymphocytes % (A) 11.2 %; Monocytes % (A) 26.8 %; Neutrophils # (A) 5.35 X 10*3/uL (1.80-7.70); Neutrophils % (A) 55.2 %
[2024-01-19 08:36] LABS: BUN/Creat Ratio 20.12 Ratio (12.00-20.00); Blood Urea Nitrogen 16.1 mg/dL (9.0-27.0); Calcium 8.2 mg/dL (8.7-10.3); Carbon Dioxide 26.3 mmol/L (21.6-31.8); Chloride 105 mmol/L (96-109); Glucose 97 mg/dL (70-110); Potassium 3.1 mmol/L (3.5-5.5); Sodium 139 mmol/L (135-145)
--- NOTE | 2024-01-19 10:19 | P.PN ---
Subjective Progress Note Date: 01/18/24 Patient is a 53-year-old female with a known history of nonalcoholic liver cirrhosis, prior history of hepatic encephalopathy, GERD, prior history of hepatic vein thrombosis 7 years ago, status post splenorenal shunt placement, anxiety and prior history of smoking. Patient was brought to ER by her due to altered mental status. Patient is on list for liver transplant. Patient has been having worsening confusion for the past 3 to 4 days. According to her patient usually gets confused with higher ammonia level. This time he was mumbling and talking to herself which is difficult to control. Patient does take lactulose at home. She was given rectal lactulose in the ER. Patient was febrile with Tmax 101.2, was tachycardic on admission. Currently on room air. On admission EKG showed sinus tachycardia CT head showed motion degraded examination with no gross evidence of acute int racranial process. Chest x-ray showed moderate cardiomegaly with diffuse patchy opacities throughout the lungs which may represent pulmonary edema versus infiltrate/pneumonia. Influenza, RSV, COVID-19 PCR not detected. Laboratory showed WBC 19.2, hemoglobin 11.1 and platelets 188 INR 1.3 sodium 136 potassium 4.3 chloride 109 bicarb is 20 BUN 10 and creatinine 0.54 and lactic acid 2.5 on admission magnesium 1.0 bilirubin level 4.8 AST 57 ALT 34 and alk phos 151 ammonia 36 on admission Urinalysis showed cloudy, trace ketones, small blood and RBCs 7 and squamous epithelial cells 13.Patient usually walks with a cane or a walker. She noticed to have right ankle and lower extremity redness and swelling. 01/18/2024 Patient is sitting in his bed. Awake alert Oriented x 3. Mentation is back to baseline. No complaints of chest pain or shortness of breath. No headache or dizziness or lightheadedness. Patient has been afebrile. No other acute overnight issues. Patient is being current on IV antibiotics with vancomycin and cefepime. Changed to cefazolin as per ID recommendations. Ultrasound abdomen showed no evidence of significant fluid. Chest x-ray repeat showed improved aeration of the lungs with persistent cardiomegaly and mild pulmonary vascular congestion. Correlate with BNP for CHF. No evidence of pneumonia. Procalcitonin level is not elevated. Blood cultures negative so far. Laboratory data showed WBC 9.7 hemoglobin 9.8 and platelets 170 sodium 135 potassium 3.7 chloride 112 bicarb is 22 BUN 16 creatinine 0.84 and blood sugar 115 B12 greater than 1800 and folate 6.9 TSH 0.66 Current medications reviewed. Objective - Vital Signs Vital signs: Vital Signs Temp 98.4 F 01/18/24 07:20 Pulse 90 01/18/24 08:07 Resp 17 01/18/24 07:20 BP 123/78 01/18/24 07:20 Pulse Ox 96 01/18/24 07:20 FiO2 Intake & Output 01/17/24 01/18/24 01/18/24 19:59 06:59 18:59 Intake Total Output Total Balance Intake: Intake, IV Titration Amount Cefepime 2 gm In Sodium Chloride 0.9% 100 ml @ 25 mls/hr IVPB Q8HR [facility] Rx# :[id number] Sodium Chloride 0.9% 1, 000 ml @ 20 mls/hr IV . Q24H [facility] Rx#:[id number] Vancomycin 2,000 mg In Sodium Chloride 0.9% 500 ml 500 ml @ 167 mls/hr IVPB Q12H [facility] Rx#: [id number] Oral Output: Urine Other: Voiding Method Indwelling Catheter - Exam PHYSICAL EXAMINATION: Patient is lying in the bed comfortably, no acute distress, awake alert and oriented.Morbidly obese.. HEENT: Normocephalic. Neck is supple. Pupils reactive. Nostrils clear. Oral cavity is moist. Neck reveals no JVD, carotid bruits, or thyromegaly. CHEST EXAMINATION: Trachea is central. Symmetrical expansion. Lung cerrato clear to auscultation and percussion. CARDIAC: Normal S1, S2 with no gallops. No murmurs ABDOMEN: Soft. Bowel sounds normal. No organomegaly. No abdominal bruits. Extremities: Right lower extremity redness and swelling much improved.. No clubbing or cyanosis Neurologically awake, alert, oriented x3 with well-coordinated movements. No focal deficits noted Skin: No rash or skin lesions. Psychiatric: Coperative. Nonsuicidal Musculoskeletal: No joint swelling or deformity. Normal range of motion. - Labs CBC & Chem 7: 01/19/24 05:06 01/19/24 05:06 Labs: Abnormal Lab Results - Last 24 Hours (Table) 01/17/24 01/18/24 01/18/24 Range/Units 14:12 05:40 05:40 WBC 12.6 H (3.8-10.6) k/uL RBC 3.61 L (3.80-5.40) m/uL Hgb 9.9 L (11.4-16.0) gm/dL Hct 32.8 L (34.0-46.0) % MCHC 30.1 L (31.0-37.0) g/dL RDW 19.3 H (11.5-15.5) % Immature Gran # (0.00-0.04) X 10*3/uL Neutrophils # 10.2 H (1.3-7.7) k/uL Lymphocytes # 0.5 L (1.0-4.8) k/uL Monocytes # 1.3 H (0-1.0) k/uL Eosinophils # (0.04-0.35) X 10*3/uL Sodium 135 L (137-145) mmol/L Chloride 112 H (98-107) mmol/L Glucose 115 H (74-99) mg/dL Total Bilirubin 1.8 H (0.2-1.3) mg/dL Total Protein 5.1 L (6.3-8.2) g/dL Albumin 2.6 L (3.5-5.0) g/dL Vitamin B12 >1800.0 H (200.0-944.0) pg/mL 01/18/24 Range/Units 05:40 WBC (3.8-10.6) k/uL RBC 3.59 L (3.80-5.40) m/uL Hgb 9.8 L (11.4-16.0) gm/dL Hct 32.6 L (34.0-46.0) % MCHC 30.1 L (31.0-37.0) g/dL RDW 21.3 H (11.5-15.5) % Immature Gran # 0.05 H (0.00-0.04) X 10*3/uL Neutrophils # (1.3-7.7) k/uL Lymphocytes # 0.67 L (1.0-4.8) k/uL Monocytes # 2.52 H (0-1.0) k/uL Eosinophils # 0.41 H (0.04-0.35) X 10*3/uL Sodium (137-145) mmol/L Chloride (98-107) mmol/L Glucose (74-99) mg/dL Total Bilirubin (0.2-1.3) mg/dL Total Protein (6.3-8.2) g/dL Albumin (3.5-5.0) g/dL Vitamin B12 (200.0-944.0) pg/mL Microbiology - Last 24 Hours (Table) 01/16/24 12:22 Blood Culture - Preliminary Blood Assessment and Plan Assessment: Altered mental status secondary to acute metabolic encephalopathy due to infection and mild hepatic encephalopathy. Mentation is back to baseline. Right lower extremity cellulitis Sepsis secondary to above Diffuse patchy opacities in the lung. Pulm edema versus infection. Procalcitonin level is not elevated. Repeat x-ray showed improved aeration. Lactic acidosis 2.5 admission. Improved. History of portal vein thrombosis and also history of splenorenal shunt placement Prothrombin gene mutation Anxiety Prior to smoking DVT prophylaxis with heparin subcu Plan: Patient was given fluid bolus in the ER. Lactic acidosis has normalized. Continue with broad-spectrum antibiotics vancomycin and cefepime. Changed to cefazolin as per ID recommendations. Repeat x-ray showed improved aeration. Procalcitonin level is not elevated. Mentation is also back to baseline. Follow-up blood cultures. Continue with home medications including lactulose. Neurology and ID is on board. Follow-up closely. Discussed with her at bedside in detail. Anticipate discharge in the next 24 hours. Replace electrolytes. Time with Patient: Greater than 30
[2024-01-19] MEDS: POTASSIUM CHLORIDE ER 20 MEQ TAB.ER PO STA ×2 (10:58→10:59)
--- NOTE | 2024-01-19 12:10 | P.PN ---
Subjective Progress Note Date: 01/19/24 Principal diagnosis: Reason for follow-up is fever possible right leg cellulitis Patient is a 53-year-old female with a past medical history significant for reflux did have liver failure on transplant list patient has been brought into the hospital for evaluation of altered mental status for the last 3 to 4 days subsequently did spike a fever and there was concern for right lower extremity cellulitis and possible SBP. On today's evaluation that is 01/19/2024, Patient is afebrile this morning patient is breathing comfortably on room air patient was noted to be sleepy and did not answer any questions however nursing staff mention she was doing well this morning did have a breakfast and may be taking a nap. Patient white count is 9.70, creatinine 0.8 Objective - Vital Signs Vital signs: Vital Signs Temp 98.1 F 01/19/24 07:18 Pulse 80 01/19/24 08:41 Resp 16 01/19/24 07:18 BP 120/65 01/19/24 07:18 Pulse Ox 94 L 01/19/24 07:18 FiO2 Intake & Output 01/18/24 01/19/24 01/19/24 18:59 06:59 18:59 Intake Total 150 590 Output Total 2700 2300 Balance -2550 -1710 Intake: Intake, IV Titration 150 Amount Cefepime 2 gm In Sodium 100 Chloride 0.9% 100 ml @ 25 mls/hr IVPB Q8HR [facility] Rx# :[id number] ceFAZolin 2 gm In Sodium 50 Chloride 0.9% 50 ml @ 100 mls/hr IVPB Q8HR [place] Rx# :[id number] Oral 590 Output: Urine 2700 2300 Other: Voiding Method Indwelling Catheter Indwelling Catheter Indwelling Catheter - Exam GENERAL DESCRIPTION: Middle-age female lying in bed in no distress RESPIRATORY SYSTEM: Unlabored breathing , decreased breath sounds at bases HEART: S1 S2 regular rate and rhythm , ABDOMEN: Soft , no tenderness EXTREMITIES: Right leg redness has slightly decreased have some swelling - Labs CBC & Chem 7: 01/19/24 05:06 01/19/24 05:06 Labs: Abnormal Lab Results - Last 24 Hours (Table) 01/19/24 01/19/24 Range/Units 05:06 05:06 RBC 3.42 L (4.10-5.20) X 10*6/uL Hgb 9.5 L (12.0-15.0) g/dL Hct 30.3 L (37.2-46.3) % MCHC 31.4 L (32.0-37.0) g/dL RDW 21.1 H (11.5-14.5) % Monocytes # 2.60 H (0.20-1.00) X 10*3/uL Eosinophils # 0.56 H (0.04-0.35) X 10*3/uL Potassium 3.1 L (3.5-5.5) mmol/L BUN/Creatinine Ratio 20.12 H (12.00-20.00) Ratio Calcium 8.2 L (8.7-10.3) mg/dL Microbiology - Last 24 Hours (Table) 01/16/24 12:22 Blood Culture Gram Stain - Preliminary Blood Blood Culture - Preliminary Assessment and Plan (1) Sepsis Current Visit: Yes Status: Acute Code(s): A41.9 - SEPSIS, UNSPECIFIED ORGANISM SNOMED Code(s): 56040778 (2) Cellulitis of right leg Current Visit: Yes Status: Acute Code(s): L03.115 - CELLULITIS OF RIGHT LOWER LIMB SNOMED Code(s): 12546044027040094 (3) Positive blood culture Current Visit: Yes Status: Acute Code(s): R78.81 - BACTEREMIA SNOMED Code(s): 768697720 Plan: 1patient presented to hospital with mental status changes questionable hepatic encephalopathy this patient did have history of liver failure questionably related to SBP however the patient also noticed to have increasing swelling and redness to the right lower extremity and a possible component of right lower extremity cellulitis. 2patient seem to have shown clinical improvement and more likely pointed to his right lower extremity cellulitis with diffuse swelling redness likely streptococcal disease 3-positive blood culture with gram-positive cocci which could not be identified by bio fire possible contamination, await final ID sensitivity 4-patient to continue with cefazolin 2 g every 8 hours Dictation was produced using [employer] dictation software. please excuse any grammatical, word or spelling errors. Time with Patient: Less than 30
--- NOTE | 2024-01-20 00:09 | EEG ---
ELECTROENCEPHALOGRAM REPORT CLINICAL HISTORY: This is a 53-year-old woman with reported altered mental status. The video EEG is obtained to evaluate for seizure epileptiform activity. RELEVANT MEDICATION: Gabapentin as reported on mechanical sound technician report. EEG TYPE: A routine 21-channel EEG with video using the 10/20 electrode placement system. DESCRIPTION: Wakefulness is obtained. During awake state, the posterior-dominant rhythm consists of adx-he-zbipeicm voltage of 6.5 to 7.5 hertz activity that is well modulated, and well sustained. There is no physiological stage 2 sleep architecture. There is no focal slowing. Interictal and ictal is none. ACTIVATION PROCEDURE: Photic stimulation did not evoke a posterior driving response. There is no abnormality during the photic stimulation. Hyperventilation is not performed. CLINICAL INTERPRETATION: This is an abnormal routine EEG. The background slowing is suggestive of mild encephalopathy. There is no focal slowing, epileptiform discharges, or seizure on the EEG. Clinical correlation is recommended. PANKAJ / BASIL: [id number] /
--- NOTE | 2024-01-20 05:25 | P.PN ---
Subjective Progress Note Date: 01/19/24 Patient is a 53-year-old female with a known history of nonalcoholic liver cirrhosis, prior history of hepatic encephalopathy, GERD, prior history of hepatic vein thrombosis 7 years ago, status post splenorenal shunt placement, anxiety and prior history of smoking. Patient was brought to ER by her due to altered mental status. Patient is on list for liver transplant. Patient has been having worsening confusion for the past 3 to 4 days. According to her patient usually gets confused with higher ammonia level. This time he was mumbling and talking to herself which is difficult to control. Patient does take lactulose at home. She was given rectal lactulose in the ER. Patient was febrile with Tmax 101.2, was tachycardic on admission. Currently on room air. On admission EKG showed sinus tachycardia CT head showed motion degraded examination with no gross evidence of acute in tracranial process. Chest x-ray showed moderate cardiomegaly with diffuse patchy opacities throughou t the lungs which may represent pulmonary edema versus infiltrate/pneumonia. Influenza, RSV, COVID-19 PCR not detected. Laboratory showed WBC 19.2, hemoglobin 11.1 and platelets 188 INR 1.3 sodium 136 potassium 4.3 chloride 109 bicarb is 20 BUN 10 and creatinine 0.54 and lactic acid 2.5 on admission magnesium 1.0 bilirubin level 4.8 AST 57 ALT 34 and alk phos 151 ammonia 36 on admission Urinalysis showed cloudy, trace ketones, small blood and RBCs 7 and squamous epithelial cells 13.Patient usually walks with a cane or a walker. She noticed to have right ankle and lower extremity redness and swelling. 01/18/2024 Patient is sitting in his bed. Awake alert Oriented x 3. Mentation is back to baseline. No complaints of chest pain or shortness of breath. No headache or dizziness or lightheadedness. Patient has been afebrile. No other acute overnight issues. Patient is being current on IV antibiotics with vancomycin and cefepime. Changed to cefazolin as per ID recommendations. Ultrasound abdomen showed no evidence of significant fluid. Chest x-ray repeat showed improved aeration of the lungs with persistent cardiomegaly and mild pulmonary vascular congestion. Correlate with BNP for CHF. No evidence of pneumonia. Procalcitonin level is not elevated. Blood cultures negative so far. Laboratory data showed WBC 9.7 hemoglobin 9.8 and platelets 170 sodium 135 potassium 3.7 chloride 112 bicarb is 22 BUN 16 creatinine 0.84 and blood sugar 115 B12 greater than 1800 and folate 6.9 TSH 0.66 Current medications reviewed. 01/19/2024 Patient is seen in follow-up today currently undergoing EEG with neurology and infectious disease following. Patient is maintained on IV antibiotics and will continue for now. Awaiting finalized cultures as blood cultures are positive and repeat blood cultures ordered and pending. Continue with local wound care to the right lower extremity and elevating while at rest. Patient is currently afebrile with no reports of chest pain or shortness of breath. Patient was asking when she could go home. Will await repeat cultures to determine clearance or contamination of bacteremia. Review of systems: Constitutional: No reports of fatigue, fever, or chills Cardiovascular: No reports of chest pain or palpitations Respiratory: No reports of shortness of breath or cough GI: No reports of nausea, vomiting, or diarrhea : No reports of dysuria or retention Neurovascular: reports of generalized weakness, reports right lower extremity pain Physical exam: Gen: This is a 53-year-old female who is awake, alert and oriented x 2-3, baseline, well-developed, appears elderly, morbidly obese HEENT: Head is atraumatic, normocephalic. Pupils equal, round. Sclerae is anicteric. NECK: Supple. No JVD. No lymphadenopathy. No thyromegaly. LUNGS: Diminished breath sounds bilaterally otherwise clear to auscultation. No wheezes or rhonchi. No intercostal retractions. HEART: S1, S2 are muffled ABDOMEN: Soft. Morbidly obese bowel sounds are present. No masses. No tenderness. EXTREMITIES: Bilateral lower extremity edema, worse on the right. No calf tenderness. NEUROLOGICAL: Patient is awake, alert and oriented x2-3. Cranial nerves 2 through 12 are grossly intact. Diffusely weak Assessment: Altered mental status secondary to acute metabolic encephalopathy due to infection and mild hepatic encephalopathy. Mentation is back to baseline. Right lower extremity cellulitis present on admission with positive blood c ultures Sepsis secondary to above Diffuse patchy opacities in the lung. Pulm edema versus infection. Procalcitonin level is not elevated. Repeat x-ray showed improved aeration. Lactic acidosis 2.5 admission. Improved. History of portal vein thrombosis and also history of splenorenal shunt placem ent Prothrombin gene mutation Morbid obesity with a BMI of 71.6 Anxiety Prior to smoking DVT prophylaxis with heparin subcu GI prophylaxis Full code Plan: Patient was given fluid bolus in the ER. Lactic acidosis has normalized. Continue with antibiotics in the form of cefazolin per ID recommendations. Awaiting repeat blood cultures to determine if contamination and/or clearance of bacteremia. Continue local wound care to the right lower extremity and elevate while at rest Repeat x-ray showed improved aeration. Procalcitonin level is not elevated. Mentation is also back to baseline. Patient undergoing EEG with neurology following and will await official report All other home medications have been reviewed and resumed as appropriate PT/OT therapy evaluation Will discuss with other consultations regarding discharge planning. Patient is eager to go home although awaiting finalized blood cultures. Due to multiple complex medical issues, overall prognosis is guarded The impression and plan of care has been dictated by Marisela Nieto, Nurse Practitioner as directed. Dr. Jackson MD I have performed a history and examination and MDM of this patient, discussed the same with the dictator, and agree with the dictator's assessment and plan as written ,documented as a scribe. Based on total visit time, I have performed more than 50% of the visit. Objective - Vital Signs Vital signs: Vital Signs Temp 98.1 F 01/19/24 07:18 Pulse 80 01/19/24 08:41 Resp 16 01/19/24 07:18 BP 120/65 01/19/24 07:18 Pulse Ox 94 L 01/19/24 07:18 FiO2 Intake & Output 01/18/24 01/19/24 01/19/24 18:59 06:59 18:59 Intake Total 150 590 Output Total 2700 2300 Balance -2550 -1710 Intake: Intake, IV Titration 150 Amount Cefepime 2 gm In Sodium 100 Chloride 0.9% 100 ml @ 25 mls/hr IVPB Q8HR [place] Rx# :[id number] ceFAZolin 2 gm In Sodium 50 Chloride 0.9% 50 ml @ 100 mls/hr IVPB Q8HR [place] Rx# :[id number] Oral 590 Output: Urine 2700 2300 Other: Voiding Method Indwelling Catheter Indwelling Catheter - Labs CBC & Chem 7: 01/19/24 05:06 01/19/24 05:06 Labs: Abnormal Lab Results - Last 24 Hours (Table) 01/18/24 01/18/24 01/19/24 Range/Units 05:40 05:40 05:06 RBC 3.42 L (4.10-5.20) X 10*6/uL Hgb 9.5 L (12.0-15.0) g/dL Hct 30.3 L (37.2-46.3) % MCHC 31.4 L (32.0-37.0) g/dL RDW 21.1 H (11.5-14.5) % Immature Gran # 0.05 H (0.00-0.04) X 10*3/uL Lymphocytes # 0.67 L (0.90-5.00) X 10*3/uL Monocytes # 2.52 H 2.60 H (0.20-1.00) X 10*3/uL Eosinophils # 0.41 H 0.56 H (0.04-0.35) X 10*3/uL Potassium (3.5-5.5) mmol/L BUN/Creatinine Ratio (12.00-20.00) Ratio Calcium (8.7-10.3) mg/dL Vitamin B12 >1800.0 H (200.0-944.0) pg/mL 01/19/24 Range/Units 05:06 RBC (4.10-5.20) X 10*6/uL Hgb (12.0-15.0) g/dL Hct (37.2-46.3) % MCHC (32.0-37.0) g/dL RDW (11.5-14.5) % Immature Gran # (0.00-0.04) X 10*3/uL Lymphocytes # (0.90-5.00) X 10*3/uL Monocytes # (0.20-1.00) X 10*3/uL Eosinophils # (0.04-0.35) X 10*3/uL Potassium 3.1 L (3.5-5.5) mmol/L BUN/Creatinine Ratio 20.12 H (12.00-20.00) Ratio Calcium 8.2 L (8.7-10.3) mg/dL Vitamin B12 (200.0-944.0) pg/mL Microbiology - Last 24 Hours (Table) 01/16/24 12:22 Blood Culture Gram Stain - Preliminary Blood Blood Culture - Preliminary
[2024-01-20 06:17] LABS: ALT 22 U/L (4-34); AST 32 U/L (14-36); African American GFR (CKD) >90 (>60 ml/min/1.73 sqM); Albumin 2.5 g/dL (3.5-5.0); Alkaline Phosphatase 119 U/L (38-126); Anion Gap 0 mmol/L; Blood Urea Nitrogen 17 mg/dL (7-17); Calcium 8.1 mg/dL (8.4-10.2); Carbon Dioxide 31 mmol/L (22-30); Chloride 103 mmol/L (98-107); Globulin 2.4 g/dL; Glucose 85 mg/dL (74-99); Non-African American GFR(CKD) >90 (>60 ml/min/1.73 sqM); Potassium 2.8 mmol/L (3.5-5.1); Sodium 134 mmol/L (137-145); Total Bilirubin 1.6 mg/dL (0.2-1.3); Total Protein 4.9 g/dL (6.3-8.2)
[2024-01-20 06:26] LABS: Magnesium 1.3 mg/dL (1.6-2.3)
[2024-01-20] MEDS ORDERED: Potassium Replacement Protocol 1 EACH MISC MISCELLANE PRN (06:43)
[2024-01-20] MEDS ORDERED: Magnesium Replacement Protocol 1 EACH MISC MISCELLANE PRN (06:54)
[2024-01-20] MEDS: MAGNESIUM SULFATE-D5W PMX 1 GM in DEXTROSE/WATER 1 100ML.BAG IVPB SCH (08:25)
[2024-01-20] MEDS: POTASSIUM CHLORIDE ER 20 MEQ TAB.ER PO SCH (08:29)
[2024-01-20 09:57] LABS: Anisocytosis (M) 2+; Basophils # (A) 0.07 X 10*3/uL (0.00-0.10); Basophils % (A) 0.8 %; Elliptocytes 2+; Eosinophils # (A) 0.65 X 10*3/uL (0.04-0.35); Eosinophils % (A) 7.6 %; HGB 9.9 g/dL (12.0-15.0); Hypochromasia (M) 2+; Lymphocytes # (A) 1.04 X 10*3/uL (0.90-5.00); Lymphocytes % (A) 12.2 %; MCH 27.6 pg (27.0-32.0); MCHC 30.9 g/dL (32.0-37.0); MCV 89.1 FL (80.0-97.0); Mean Platelet Volume 13.1 FL (9.5-12.2); Monocytes # (A) 2.12 X 10*3/uL (0.20-1.00); Monocytes % (A) 24.8 %; NRBC Per 100 WBC 0 X 10*3/uL (0.00-0.01); Neutrophils # (A) 4.62 X 10*3/uL (1.80-7.70); Neutrophils % (A) 54.1 %; Platelet Count 102 X 10*3/uL (140-440); RBC 3.59 X 10*6/uL (4.10-5.20); WBC 8.54 X 10*3/uL (4.50-10.00)
--- NOTE | 2024-01-20 12:26 | P.PN ---
Subjective Progress Note Date: 01/20/24 Principal diagnosis: Reason for follow-up is fever possible right leg cellulitis Patient is a 53-year-old female with a past medical history significant for reflux did have liver failure on transplant list patient has been brought into the hospital for evaluation of altered mental status for the last 3 to 4 days subsequently did spike a fever and there was concern for right lower extremity cellulitis and possible SBP. On today's evaluation that is 01/20/2024,the patient denies any fever or any chills, patient is breathing comfortably on room air, the patient denies chest pain shortness of breath and no significant cough, patient denies abdominal pain, no nausea vomiting or diarrhea. Denies pain to the right lower extremity. Patient white count is 8.54, creatinine 0.58 blood culture positive but could not be identified Objective - Vital Signs Vital signs: Vital Signs Temp 98.2 F 01/20/24 07:40 Pulse 82 01/20/24 12:17 Resp 16 01/20/24 07:40 BP 119/70 01/20/24 07:40 Pulse Ox 92 L 01/20/24 07:40 FiO2 Intake & Output 01/19/24 01/20/24 01/20/24 18:59 06:59 18:59 Intake Total 770 236 Output Total 2625 1900 Balance -2625 -1130 236 Intake: Intake, IV Titration 50 Amount ceFAZolin 2 gm In Sodium 50 Chloride 0.9% 50 ml @ 100 mls/hr IVPB Q8HR ON [facility] OF [facility] Rx# :[id number] Oral 720 236 Output: Urine 2625 1900 Other: Voiding Method Indwelling Catheter # Voids 1 2 # Bowel Movements 1 - Exam GENERAL DESCRIPTION: Middle-age female lying in bed in no distress RESPIRATORY SYSTEM: Unlabored breathing , decreased breath sounds at bases HEART: S1 S2 regular rate and rhythm , ABDOMEN: Soft , no tenderness EXTREMITIES: Right leg redness has decreased in intensity and no open wound or drainage - Labs CBC & Chem 7: 01/20/24 05:35 01/20/24 05:35 Labs: Abnormal Lab Results - Last 24 Hours (Table) 01/20/24 01/20/24 Range/Units 05:35 05:35 RBC 3.59 L (4.10-5.20) X 10*6/uL Hgb 9.9 L (12.0-15.0) g/dL Hct 32.0 L (37.2-46.3) % MCHC 30.9 L (32.0-37.0) g/dL RDW 21.0 H (11.5-14.5) % Plt Count 102 L (140-440) X 10*3/uL MPV 13.1 H (9.5-12.2) FL Monocytes # 2.12 H (0.20-1.00) X 10*3/uL Eosinophils # 0.65 H (0.04-0.35) X 10*3/uL Hypochromasia (manual) 2+ A Anisocytosis (manual) 2+ A Elliptocytes 2+ A Sodium 134 L (137-145) mmol/L Potassium 2.8 L (3.5-5.1) mmol/L Carbon Dioxide 31 H (22-30) mmol/L Calcium 8.1 L (8.4-10.2) mg/dL Magnesium 1.3 L (1.6-2.3) mg/dL Total Bilirubin 1.6 H (0.2-1.3) mg/dL Total Protein 4.9 L (6.3-8.2) g/dL Albumin 2.5 L (3.5-5.0) g/dL Microbiology - Last 24 Hours (Table) 01/16/24 12:22 Blood Culture Gram Stain - Final Blood Blood Culture - Preliminary Assessment and Plan (1) Sepsis Current Visit: Yes Status: Acute Code(s): A41.9 - SEPSIS, UNSPECIFIED ORGANISM SNOMED Code(s): 42334203 (2) Cellulitis of right leg Current Visit: Yes Status: Acute Code(s): L03.115 - CELLULITIS OF RIGHT LOWER LIMB SNOMED Code(s): 63235674979068127 (3) Positive blood culture Current Visit: Yes Status: Acute Code(s): R78.81 - BACTEREMIA SNOMED Code(s): 964410348 Plan: 1patient presented to hospital with mental status changes questionable hepatic encephalopathy this patient did have history of liver failure questionably related to SBP however the patient also noticed to have increasing swelling and redness to the right lower extremity and a possible component of right lower extremity cellulitis. 2-positive blood culture with gram-positive cocci which could not be iden tified by bio fire possible contamination, await final ID sensitivity 3patient did have improvement to the right lower extremity cellulitis resolution of the fever and white count normalized will consider a 10-day course of oral Keflex on discharge 500 mg every 6 hours Dictation was produced using [employer] dictation software. please excuse any grammatical, word or spelling errors. Time with Patient: Less than 30
[2024-01-20] MEDS: POTASSIUM CHLORIDE ER 10 MEQ TAB.ER.PRT PO SCH (21:31)
--- NOTE | 2024-01-21 06:14 | P.PN ---
Subjective Progress Note Date: 01/20/24 Patient is a 53-year-old female with a known history of nonalcoholic liver cirrhosis, prior history of hepatic encephalopathy, GERD, prior history of hepatic vein thrombosis 7 years ago, status post splenorenal shunt placement, anxiety and prior history of smoking. Patient was brought to ER by her due to altered mental status. Patient is on list for liver transplant. Patient has been having worsening confusion for the past 3 to 4 days. According to her patient usually gets confused with higher ammonia level. This time he was mumbling and talking to herself which is difficult to control. Patient does take lactulose at home. She was given rectal lactulose in the ER. Patient was febrile with Tmax 101.2, was tachycardic on admission. Currently on room air. On admission EKG showed sinus tachycardia CT head showed motion degraded examination with no gross evidence of acute in tracranial process. Chest x-ray showed moderate cardiomegaly with diffuse patchy opacities throughou t the lungs which may represent pulmonary edema versus infiltrate/pneumonia. Influenza, RSV, COVID-19 PCR not detected. Laboratory showed WBC 19.2, hemoglobin 11.1 and platelets 188 INR 1.3 sodium 136 potassium 4.3 chloride 109 bicarb is 20 BUN 10 and creatinine 0.54 and lactic acid 2.5 on admission magnesium 1.0 bilirubin level 4.8 AST 57 ALT 34 and alk phos 151 ammonia 36 on admission Urinalysis showed cloudy, trace ketones, small blood and RBCs 7 and squamous epithelial cells 13.Patient usually walks with a cane or a walker. She noticed to have right ankle and lower extremity redness and swelling. 01/18/2024 Patient is sitting in his bed. Awake alert Oriented x 3. Mentation is back to baseline. No complaints of chest pain or shortness of breath. No headache or dizziness or lightheadedness. Patient has been afebrile. No other acute overnight issues. Patient is being current on IV antibiotics with vancomycin and cefepime. Changed to cefazolin as per ID recommendations. Ultrasound abdomen showed no evidence of significant fluid. Chest x-ray repeat showed improved aeration of the lungs with persistent cardiomegaly and mild pulmonary vascular congestion. Correlate with BNP for CHF. No evidence of pneumonia. Procalcitonin level is not elevated. Blood cultures negative so far. Laboratory data showed WBC 9.7 hemoglobin 9.8 and platelets 170 sodium 135 potassium 3.7 chloride 112 bicarb is 22 BUN 16 creatinine 0.84 and blood sugar 115 B12 greater than 1800 and folate 6.9 TSH 0.66 Current medications reviewed. 01/19/2024 Patient is seen in follow-up today currently undergoing EEG with neurology and infectious disease following. Patient is maintained on IV antibiotics and will continue for now. Awaiting finalized cultures as blood cultures are positive and repeat blood cultures ordered and pending. Continue with local wound care to the right lower extremity and elevating while at rest. Patient is currently afebrile with no reports of chest pain or shortness of breath. Patient was asking when she could go home. Will await repeat cultures to determine clearance or contamination of bacteremia. 01/20/2024 Patient is seen in follow-up today with infectious disease and neurology following. Patient continues on antibiotics in the form of cefazolin showing some clinical improvement and will likely continue on oral Keflex on discharge for a 10-day course. Awaiting repeat finalized cultures. Patient is to continue with local wound care and elevating lower extremities. Patient is afebrile with no reports of chest pain or shortness of breath. Patient has been tolerating diet with no reported nausea or vomiting. Potassium was significantly low along with magnesium and being replaced. Will add daily supplements of potassium. Review of systems: Constitutional: No reports of fatigue, fever, or chills Cardiovascular: No reports of chest pain or palpitations Respiratory: No reports of shortness of breath or cough GI: No reports of nausea, vomiting, or diarrhea : No reports of dysuria or retention Neurovascular: reports of generalized weakness, reports right lower extremity pain but improving Physical exam: Gen: This is a 53-year-old female who is awake, alert and oriented x 2-3, baseline, well-developed, appears elderly, morbidly obese HEENT: Head is atraumatic, normocephalic. Pupils equal, round. Sclerae is a nicteric. NECK: Supple. No JVD. No lymphadenopathy. No thyromegaly. LUNGS: Diminished breath sounds bilaterally otherwise clear to auscultation. No wheezes or rhonchi. No intercostal retractions. HEART: S1, S2 are muffled ABDOMEN: Soft. Morbidly obese bowel sounds are present. No masses. No ten derness. EXTREMITIES: Bilateral lower extremity edema, worse on the right. No calf tenderness. NEUROLOGICAL: Patient is awake, alert and oriented x2-3. Cranial nerves 2 through 12 are grossly intact. Diffusely weak Assessment: Altered mental status secondary to acute metabolic encephalopathy due to infection and mild hepatic encephalopathy. Mentation is back to baseline. Right lower extremity cellulitis present on admission with positive blood cultures Sepsis secondary to above Diffuse patchy opacities in the lung. Pulm edema versus infection. Procalcitonin level is not elevated. Repeat x-ray showed improved aeration. Lactic acidosis 2.5 admission. Improved. History of portal vein thrombosis and also history of splenorenal shunt placement Prothrombin gene mutation Morbid obesity with a BMI of 71.6 Anxiety Prior to smoking DVT prophylaxis with heparin subcu GI prophylaxis Full code Plan: Patient is continued on antibiotics in the form of cefazolin per ID recommendations. Awaiting repeat blood cultures to determine if contamination and/or clearance of bacteremia. Continue local wound care to the right lower extremity and elevate while at rest. Patient will likely continue on Keflex 500 mg every 6 hours for 10-day course per ID recommendations on discharge Patient undergoing EEG with neurology following and will await official report All other home medications have been reviewed and resumed as appropriate PT/OT therapy evaluation Will discuss with other consultations regarding discharge planning. Patient is eager to go home although awaiting finalized blood cultures. Due to multiple complex medical issues, overall prognosis is guarded The impression and plan of care has been dictated by Marisela Nieto, Nurse Practitioner as directed. Dr. Jackson MD I have performed a history and examination and MDM of this patient, discussed the same with the dictator, and agree with the dictator's assessment and plan as written ,documented as a scribe. Based on total visit time, I have performed more than 50% of the visit. Objective - Vital Signs Vital signs: Vital Signs Temp 98.2 F 01/20/24 07:40 Pulse 84 01/20/24 07:40 Resp 16 01/20/24 07:40 BP 119/70 01/20/24 07:40 Pulse Ox 92 L 01/20/24 07:40 FiO2 Intake & Output 01/19/24 01/20/24 01/20/24 18:59 06:59 18:59 Intake Total 770 236 Output Total 2971 3750 Balance -2625 -1130 236 Intake: Intake, IV Titration 50 Amount ceFAZolin 2 gm In Sodium 50 Chloride 0.9% 50 ml @ 100 mls/hr IVPB Q8HR [facility] Rx# :[id number] Oral 720 236 Output: Urine 2625 1900 Other: Voiding Method Indwelling Catheter # Voids 1 2 # Bowel Movements 1 - Labs CBC & Chem 7: 01/20/24 05:35 01/20/24 05:35 Labs: Abnormal Lab Results - Last 24 Hours (Table) 01/20/24 01/20/24 Range/Units 05:35 05:35 RBC 3.59 L (4.10-5.20) X 10*6/uL Hgb 9.9 L (12.0-15.0) g/dL Hct 32.0 L (37.2-46.3) % MCHC 30.9 L (32.0-37.0) g/dL RDW 21.0 H (11.5-14.5) % Plt Count 102 L (140-440) X 10*3/uL MPV 13.1 H (9.5-12.2) FL Monocytes # 2.12 H (0.20-1.00) X 10*3/uL Eosinophils # 0.65 H (0.04-0.35) X 10*3/uL Hypochromasia (manual) 2+ A Anisocytosis (manual) 2+ A Elliptocytes 2+ A Sodium 134 L (137-145) mmol/L Potassium 2.8 L (3.5-5.1) mmol/L Carbon Dioxide 31 H (22-30) mmol/L Calcium 8.1 L (8.4-10.2) mg/dL Magnesium 1.3 L (1.6-2.3) mg/dL Total Bilirubin 1.6 H (0.2-1.3) mg/dL Total Protein 4.9 L (6.3-8.2) g/dL Albumin 2.5 L (3.5-5.0) g/dL Microbiology - Last 24 Hours (Table) 01/16/24 12:22 Blood Culture Gram Stain - Final Blood Blood Culture - Preliminary
[2024-01-21] MEDS: NITROGLYCERIN SL TABS 0.4 MG TAB SUBLINGUAL PRN (06:19)
[2024-01-21 06:20] LABS: Anisocytosis Slight; Basophils # (A) 0.1 k/uL (0-0.2); Basophils % (A) 1 %; Eosinophils # (A) 0.7 k/uL (0-0.7); Eosinophils % (A) 8 %; HCT 35.8 % (34.0-46.0); Hypochromasia Marked; Lymphocytes # (A) 1.3 k/uL (1.0-4.8); Lymphocytes % (A) 16 %; MCH 27.6 pg (25.0-35.0); MCHC 30.8 g/dL (31.0-37.0); MCV 89.6 fL (80.0-100.0); Mean Platelet Volume 8.7; Monocytes # (A) 1.4 k/uL (0-1.0); Monocytes % (A) 17 %; Neutrophils # (A) 4.6 k/uL (1.3-7.7); Neutrophils % (A) 55 %; Platelet Count 138 k/uL (150-450); RDW 19.2 % (11.5-15.5); WBC 8.4 k/uL (3.8-10.6)
--- NOTE | 2024-01-21 07:25 | XR ---
EXAMINATION TYPE: XR chest 1V portable DATE OF EXAM: 01/21/2024 7:03 AM COMPARISON: 01/18/2024 CLINICAL INDICATION: Female, 53 years old with history of sob, TECHNIQUE: XR chest 1V portable view(s) obtained. FINDINGS: The heart size is enlarged. The pulmonary vasculature is somewhat prominent. No suspicious focal consolidation evident IMPRESSION: 1. Correlate for volume overload. 2. Cardiomegaly [facility], , 01/21/2024 7:22 AM
[2024-01-21 07:36] LABS: ALT 25 U/L (4-34); AST 40 U/L (14-36); African American GFR (CKD) >90 (>60 ml/min/1.73 sqM); Albumin 2.9 g/dL (3.5-5.0); Albumin/Globulin Ratio 1.1; Alkaline Phosphatase 130 U/L (38-126); Anion Gap 4 mmol/L; Blood Urea Nitrogen 17 mg/dL (7-17); Calcium 8.7 mg/dL (8.4-10.2); Carbon Dioxide 33 mmol/L (22-30); Chloride 99 mmol/L (98-107); Globulin 2.6 g/dL; Glucose 94 mg/dL (74-99); Non-African American GFR(CKD) >90 (>60 ml/min/1.73 sqM); Potassium 3.1 mmol/L (3.5-5.1); Sodium 136 mmol/L (137-145); Total Bilirubin 1.4 mg/dL (0.2-1.3); Total Protein 5.5 g/dL (6.3-8.2)
[2024-01-21 09:19] LABS: Magnesium 1.5 mg/dL (1.5-2.4)
--- NOTE | 2024-01-21 10:57 | P.CRDCN ---
History of Present Illness History of present illness: HISTORY OF PRESENT ILLNESS: This is a 53-year-old female with a past medical history significant for nonalcoholic liver cirrhosis, GERD, and anxiety. Patient does not follow with rn geriatric. We have been asked to see the patient in consultation for chest pain. Patient examined at the bedside. Patient reports having an episode of chest discomfort this morning. She states the pain was in the middle of her chest. She denied any radiation of the pain. EKG was obtained revealing sinus mechanism with no signs of ischemia. Troponins are negative x 2. Patient denies any history of CAD. She is a non-smoker. DIAGNOSTICS: - EKG reveals sinus mechanism with no signs of acute ischemia - Chest xray correlate for volume overload. Cardiomegaly. - Laboratory data: WBC 8.4. Hemoglobin 11.0. Platelet count 138. Sodium 136. Potassium 3.1. BUN 17. Creatinine 0.60. Troponin negative x 2. - Current home cardiac medications include Aldactone 25 mg daily, Bumex 1 mg twice a day REVIEW OF SYSTEMS: At the time of my exam: CONSTITUTIONAL: Denies fever or chills. HEENT: Denies blurred vision, vision changes, or eye pain. Denies hemoptysis CARDIOVASCULAR: Denies chest pain. Denies orthopnea. Denies PND. Denies palpitations RESPIRATORY: Denies shortness of breath. GASTROINTESTINAL: Denies abdominal pain. Denies nausea or vomiting. HEMATOLOGIC: Denies bleeding disorders. GENITOURINARY: Denies any blood in urine. SKIN: Denies pruitis. Denies rash. PHYSICAL EXAM: VITAL SIGNS: Reviewed. GENERAL: Well-developed in no acute distress. HEENT: Head is normocephalic. Pupils are equal, round. Sclerae anicteric. Mucous membranes of the mouth are moist. Neck supple. No JVD or thyromegaly LUNGS: Respirations even and unlabored. Lungs essentially clear to auscultation bilaterally. HEART: Regular rate and rhythm. S1 and S2 heard. ABDOMEN: Soft. Nondistended. Nontender. EXTREMITIES: Normal range of motion. No clubbing or cyanosis. Peripheral pulses intact. No lower extremity edema NEUROLOGIC: Awake and alert. Oriented x 3. ASSESSMENT: Altered mental status Acute metabolic encephalopathy Right lower extremity cellulitis Sepsis Chest pain, troponin negative x 2 History of nonalcoholic liver cirrhosis History of GERD History of anxiety Former nicotine dependence PLAN: An acute coronary event has been ruled out Obtain 2D echo to assess cardiac structure and function Check D-dimer Further recommendations pending patient course Nurse practitioner note has been reviewed by physician. Signing provider agrees with the documented findings, assessment, and plan of care documented by [employer] as a scribe. 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 HEAVY & IRREG MENSES, ANEMIA; HAD IRON INFUSIONS X2 11/28, 12/05/16. History of Any Multi-Drug Resistant Organisms: None Reported Past Surgical History: Cholecystectomy, Joint Replacement Additional Past Surgical History / Comment(s): PARTIAL MATTHEW KNEE REPLACEMENT. Past Anesthesia/Blood Transfusion Reactions: Motion Sickness, Postoperative Nausea & Vomiting (PONV) Past Psychological History: Anxiety Smoking Status: Former smoker Past Alcohol Use History: None Reported Past Drug Use History: None Reported - Past Family History Mother History Unknown: Yes Family Medical History: Blood Disorder Additional Family Medical History / Comment(s): LEIDEN FACTOR Sister(s) History Unknown: Yes Family Medical History: Blood Disorder Additional Family Medical History / Comment(s): LEIDEN FACTOR Medications and Allergies Home Medications Medication Instructions Recorded Confirmed Type Cyanocobalamin (Vitamin B-12) 1,000 mcg PO DAILY 12/17/16 01/16/24 History [Vitamin B-12] Omeprazole [PriLOSEC] 20 mg PO DAILY 12/17/16 01/16/24 History Bumetanide [BUMEX] 1 mg PO BID 12/05/23 01/16/24 History Cholecalciferol [Vitamin D3 (125 125 mcg PO HS 12/05/23 01/16/24 History Mcg = 5000 Iu)] Fluticasone/Umeclidin/Vilanter 1 puff INHALATION RT-DAILY 12/05/23 01/16/24 History [Trelegy Ellipta 100-62.5-25] Gabapentin 300 mg PO TID 12/05/23 01/16/24 History Magnesium Oxide [Magox 400] 400 mg PO TID 12/05/23 01/16/24 History Montelukast [Singulair] 10 mg PO HS 12/05/23 01/16/24 History PARoxetine HCL [PARoxetine HCL Cr] 25 mg PO DAILY 12/05/23 01/16/24 History Rifaximin [Xifaxan] 550 mg PO BID 12/05/23 01/16/24 History Spironolactone [Aldactone] 25 mg PO DAILY 12/05/23 01/16/24 History Albuterol Inhaler [Ventolin Hfa 2 puff INHALATION RT-Q6H PRN 01/16/24 01/16/24 History Inhaler] Fexofenadine HCl [Ann [place] Allergy] 180 mg PO DAILY 01/16/24 01/16/24 History Lactulose 20 gm PO BID 01/16/24 01/16/24 History Vitamin E (Dl,Tocopheryl Acet) 400 unit PO DAILY 01/16/24 01/16/24 History [Vitamin E (400 Iu = 180 mg)] Allergies Allergy/AdvReac Type Severity Reaction Status Date / Time No Known Allergies Allergy Verified 01/16/24 15:00 Physical Exam Vitals: Vital Signs Temp Pulse Pulse Resp BP Pulse Ox 01/21/24 06:55 97.5 F L 87 16 143/76 97 01/21/24 06:40 83 01/21/24 06:28 86 01/21/24 05:56 86 20 137/81 97 01/21/24 00:59 98.7 F 94 18 110/67 93 L 01/20/24 19:37 98.3 F 88 18 114/77 95 01/20/24 16:27 80 01/20/24 16:14 80 01/20/24 12:27 98.4 F 80 16 126/75 95 01/20/24 12:17 82 01/20/24 12:03 82 Intake and Output 01/20/24 01/21/24 01/21/24 22:59 06:59 14:59 Intake Total 2336 240 Output Total 2600 1000 Balance -264 -1000 240 Intake: Oral 2336 240 Output: Urine 2600 1000 Other: Voiding Method External Catheter Results 01/21/24 06:01 01/21/24 06:01 Cardiac Enzymes 01/21/24 01/21/24 01/21/24 Range/Units 06:01 06:01 09:35 AST 40 H (14-36) U/L Troponin I <0.012 <0.012 (0.000-0.034) ng/mL CBC 01/21/24 Range/Units 06:01 WBC 8.4 (3.8-10.6) k/uL RBC 4.00 (3.80-5.40) m/uL Hgb 11.0 L (11.4-16.0) gm/dL Hct 35.8 (34.0-46.0) % Plt Count 138 L (150-450) k/uL Comprehensive Metabolic Panel 01/21/24 Range/Units 06:01 Sodium 136 L (137-145) mmol/L Potassium 3.1 L (3.5-5.1) mmol/L Chloride 99 (98-107) mmol/L Carbon Dioxide 33 H (22-30) mmol/L BUN 17 (7-17) mg/dL Creatinine 0.60 (0.52-1.04) mg/dL Glucose 94 (74-99) mg/dL Calcium 8.7 (8.4-10.2) mg/dL AST 40 H (14-36) U/L ALT 25 (4-34) U/L Alkaline Phosphatase 130 H (38-126) U/L Total Protein 5.5 L (6.3-8.2) g/dL Albumin 2.9 L (3.5-5.0) g/dL Current Medications Generic Name Dose Route Start Last Admin Trade Name Freq PRN Reason Stop Dose Admin Acetaminophen 650 mg 01/17/24 09:34 Acetaminophen Tab 325 Mg Tab PO Q6HR PRN Fever and/ or Pain Albuterol Sulfate 2 puff 01/17/24 09:32 Albuterol Hfa Inhaler INHALATION RT-Q6H PRN Shortness Of Breath Budesonide/Formoterol Fumarate 2 puff 01/18/24 08:00 01/21/24 08:24 Symbicort 80-4.5 Mcg Inhaler INHALATION Not Given RT-BID [facility] Bumetanide 1 mg 01/17/24 10:00 01/21/24 08:50 Bumetanide 1 Mg Tab PO 1 mg BID [place] Administration Cholecalciferol 125 mcg 01/17/24 21:00 01/20/24 21:27 Cholecalciferol 125 Mcg (5000 Iu) Tablet PO 125 mcg HS [place] Administration Cyanocobalamin 1,000 mcg 01/17/24 09:45 01/21/24 08:49 Cyanocobalamin 500 Mcg Tab PO 1,000 mcg DAILY [place] Administration Gabapentin 300 mg 01/17/24 10:00 01/21/24 08:49 Gabapentin 300 Mg Cap PO 300 mg TID [place] Administration Heparin Sodium (Porcine) 5,000 unit 01/18/24 00:00 01/21/24 08:50 Heparin Sodium,Porcine 5,000 Unit/Ml 1 Ml Vial SQ 5,000 unit Q8HR [place] Administration Cefazolin Sodium 2 gm/ Sodium 50 mls @ 100 mls/hr 01/18/24 16:00 01/21/24 08: 50 Chloride IVPB 100 mls/hr Q8HR [facility] Administration Protocol Ibuprofen 800 mg 01/16/24 19:24 01/17/24 10:48 Ibuprofen 800 Mg Tab PO 800 mg BID PRN Administration Fever Ipratropium Secretary 0.5 mg 01/18/24 08:00 01/21/24 06:28 Ipratropium 0.5 Mg/2.5 Ml Nebu INHALATION 0.5 mg RT-QID [place] Administration Lactulose 20 gm 01/17/24 09:45 01/21/24 08:48 Lactulose 20 Gm/30 Ml Cup PO 20 gm BID [place] Administration Magnesium Oxide 400 mg 01/17/24 09:45 01/21/24 08:49 Magnesium Oxide 400 Mg Tab PO 400 mg TID [place] Administration Miscellaneous Information 1 each 01/20/24 06:54 Magnesium Replacement Protocol 1 Each Misc MISCELLANE DAILY PRN Per Protocol Protocol Montelukast Sodium 10 mg 01/17/24 21:00 01/20/24 21:27 Montelukast 10 Mg Tab PO 10 mg HS [place] Administration Naloxone HCl 0.2 mg 01/16/24 15:13 Naloxone 0.4 Mg/Ml 1 Ml Vial IV Q2M PRN Opioid Reversal Nitroglycerin 0.4 mg 01/21/24 06:13 01/21/24 06:19 Nitroglycerin Sl Tabs 0.4 Mg Tab SUBLINGUAL 0.4 mg Q5M PRN Administration Chest Pain Nystatin 1 applic 01/17/24 11:15 01/21/24 08:51 Nystatin 100,000 Unit/Gm Powd 15 Gm TOPICAL 1 applic BID [place] Administration Protocol Ondansetron HCl 4 mg 01/17/24 09:34 Ondansetron 4 Mg/2 Ml Vial IVP Q6HR PRN Nausea And Vomiting Pantoprazole Sodium 40 mg 01/17/24 10:00 01/21/24 08:49 Pantoprazole 40 Mg Tablet PO 40 mg DAILY@0730 [place] Administration Paroxetine HCl 20 mg 01/17/24 10:00 01/21/24 08:50 Paroxetine 20 Mg Tab PO 20 mg DAILY [place] Administration Potassium Chloride 20 meq 01/21/24 21:00 Potassium Chloride Er 20 Meq Tab.Er PO BID [facility] Rifaximin 550 mg 01/17/24 21:00 01/21/24 08:51 Rifaximin 550 Mg Tab (Pts Own) PO 02/16/24 20:59 550 mg BID [place] Administration Protocol Spironolactone 25 mg 01/17/24 09:45 01/21/24 08:49 Spironolactone 25 Mg Tab PO 25 mg DAILY [place] Administration Vitamin E 400 unit 01/17/24 09:45 01/21/24 08:50 Vitamin E (Dl,Tocopheryl Acet) 400 Unit (180 Mg) Cap PO 400 unit DAILY [place] Administration Intake and Output 01/20/24 01/21/24 01/21/24 22:59 06:59 14:59 Intake Total 2336 240 Output Total 2600 1000 Balance -264 -1000 240 Intake: Oral 2336 240 Output: Urine 2600 1000 Other: Voiding Method External Catheter 01/21/24 06:01 01/21/24 06:01
--- NOTE | 2024-01-21 11:20 | P.PN ---
Subjective Progress Note Date: 01/21/24 Principal diagnosis: Reason for follow-up is fever possible right leg cellulitis Patient is a 53-year-old female with a past medical history significant for reflux did have liver failure on transplant list patient has been brought into the hospital for evaluation of altered mental status for the last 3 to 4 days subsequently did spike a fever and there was concern for right lower extremity cellulitis and possible SBP. On today's evaluation that is 01/21/2024,the patient remains to be afebrile, patient is on room air not requiring supplemental oxygen and denies any shortness of breath no chest pain or cough.apparently was complaining of some chest pain last night, patient denies having any nausea or vomiting, no abdominal pain and no diarrhea has been reported, denies pain to the right lower extremity. Patient white count is 8.4, creatinine 0.60 Objective - Vital Signs Vital signs: Vital Signs Temp 97.5 F L 01/21/24 06:55 Pulse 87 01/21/24 06:55 Resp 16 01/21/24 06:55 BP 143/76 01/21/24 06:55 Pulse Ox 97 01/21/24 06:55 FiO2 Intake & Output 01/20/24 01/21/24 01/21/24 18:59 06:59 18:59 Intake Total 2930 240 Output Total 1999 1600 Balance 930 -1600 240 Intake: Oral 2930 240 Output: Urine 1999 1600 Other: Voiding Method External Catheter - Exam GENERAL DESCRIPTION: Middle-age female lying in bed in no distress RESPIRATORY SYSTEM: Unlabored breathing , decreased breath sounds at bases HEART: S1 S2 regular rate and rhythm , ABDOMEN: Soft , no tenderness EXTREMITIES: Right leg redness has decreased in intensity and no open wound or drainage - Labs CBC & Chem 7: 01/21/24 06:01 01/21/24 06:01 Labs: Abnormal Lab Results - Last 24 Hours (Table) 01/21/24 01/21/24 01/21/24 Range/Units 06:01 06:01 09:35 Hgb 11.0 L (11.4-16.0) gm/dL MCHC 30.8 L (31.0-37.0) g/dL RDW 19.2 H (11.5-15.5) % Plt Count 138 L (150-450) k/uL Monocytes # 1.4 H (0-1.0) k/uL D-Dimer 2.52 H (<0.60) mg/L FEU Sodium 136 L (137-145) mmol/L Potassium 3.1 L (3.5-5.1) mmol/L Carbon Dioxide 33 H (22-30) mmol/L Total Bilirubin 1.4 H (0.2-1.3) mg/dL AST 40 H (14-36) U/L Alkaline Phosphatase 130 H (38-126) U/L Total Protein 5.5 L (6.3-8.2) g/dL Albumin 2.9 L (3.5-5.0) g/dL Assessment and Plan (1) Sepsis Current Visit: Yes Status: Acute Code(s): A41.9 - SEPSIS, UNSPECIFIED ORGANISM SNOMED Code(s): 99551505 (2) Cellulitis of right leg Current Visit: Yes Status: Acute Code(s): L03.115 - CELLULITIS OF RIGHT LOWER LIMB SNOMED Code(s): 57262814802383888 (3) Positive blood culture Current Visit: Yes Status: Acute Code(s): R78.81 - BACTEREMIA SNOMED Code (s): 931528442 Plan: 1patient presented to hospital with mental status changes questionable hepatic encephalopathy this patient did have history of liver failure questionably related to SBP however the patient also noticed to have increasing swelling and redness to the right lower extremity and a possible component of right lower extremity cellulitis. 2-positive blood culture with gram-positive cocci which could not be identified by bio fire possible contamination, await final ID sensitivity 3patient did have improvement to the right lower extremity cellulitis resolution of the fever and white count normalized continue with the cefazolin currently workup for chest pain shortness of breath in progress CTA and echo has been ordered Dictation was produced using [employer] dictation software. please excuse any grammatical, word or spelling errors. Time with Patient: Less than 30
--- NOTE | 2024-01-21 12:04 | CT ---
EXAMINATION TYPE: CT angio chest CT DLP: 690.9 mGycm, Automated exposure control for dose reduction was used. DATE OF EXAM: 01/21/2024 11:46 AM COMPARISON: Chest radiograph 01/21/2024 CLINICAL INDICATION:Female, 53 years old with history of elev d dimer, ?PE; ELEVATED D-DIMER, shortne ss of breath TECHNIQUE/CONTRAST: CTA scan of the thorax is performed with IV Contrast, patient injected with 100 mL of Isovue 370, pul monary embolism protocol. MIP images are created and reviewed. FINDINGS: Pulmonary Artery: There is no evidence for a central filling defect within the pulmonary vasculature to suggest acute pulmonary embolism. Limited evaluation of the segmental and subsegmental branches se condary to bolus timing. The pulmonary artery is mildly prominent measuring 3.1 cm which can be seen with pulmonary arterial hypertension. Lungs/Pleura: No evidence of focal consolidation, pleural effusion or pneumothorax. Bilateral lower l obe subsegmental atelectasis. No suspicious pulmonary nodule or mass. Airway: Large airways are patent. Heart: The heart is moderately enlarged for size.. No pericardial effusion. Vasculature: No evidence of aortic aneurysm. Mediastinum: No evidence of adenopathy. Musculoskeletal: No acute osseous abnormalities. Left clavicular fixation plate hardware. Left aye l head and surgical anchors. Mild multilevel degenerative disc disease. Soft Tissues: Unremarkable. Lower neck: No significant findings. Upper Abdomen: Gallbladder is surgical absent.. Suggested vascular stent from the portal venous syste m to the left renal vein. IMPRESSION: 1. No evidence of central pulmonary embolism. Limited evaluation of the segmental and subsegmental br anches. 2. Trace bilateral lower lobe subsegmental atelectasis. 3. Cardiomegaly. [facility], , 01/21/2024 12:02 PM
[2024-01-21] MEDS: POTASSIUM CHLORIDE ER 20 MEQ TAB.ER PO STA (13:05)
[2024-01-21] MEDS: ACETAMINOPHEN TAB 325 MG TAB PO PRN (20:53)
[2024-01-21] MEDS: POTASSIUM CHLORIDE ER 20 MEQ TAB.ER PO SCH (20:59)
--- NOTE | 2024-01-22 03:33 | P.PN ---
Subjective Progress Note Date: 01/21/24 Patient is a 53-year-old female with a known history of nonalcoholic liver cirrhosis, prior history of hepatic encephalopathy, GERD, prior history of hepatic vein thrombosis 7 years ago, status post splenorenal shunt placement, anxiety and prior history of smoking. Patient was brought to ER by her due to altered mental status. Patient is on list for liver transplant. Patient has been having worsening confusion for the past 3 to 4 days. According to her patient usually gets confused with higher ammonia level. This time he was mumbling and talking to herself which is difficult to control. Patient does take lactulose at home. She was given rectal lactulose in the ER. Patient was febrile with Tmax 101.2, was tachycardic on admission. Currently on room air. On admission EKG showed sinus tachycardia CT head showed motion degraded examination with no gross evidence of acute in tracranial process. Chest x-ray showed moderate cardiomegaly with diffuse patchy opacities throughou t the lungs which may represent pulmonary edema versus infiltrate/pneumonia. Influenza, RSV, COVID-19 PCR not detected. Laboratory showed WBC 19.2, hemoglobin 11.1 and platelets 188 INR 1.3 sodium 136 potassium 4.3 chloride 109 bicarb is 20 BUN 10 and creatinine 0.54 and lactic acid 2.5 on admission magnesium 1.0 bilirubin level 4.8 AST 57 ALT 34 and alk phos 151 ammonia 36 on admission Urinalysis showed cloudy, trace ketones, small blood and RBCs 7 and squamous epithelial cells 13.Patient usually walks with a cane or a walker. She noticed to have right ankle and lower extremity redness and swelling. 01/18/2024 Patient is sitting in his bed. Awake alert Oriented x 3. Mentation is back to baseline. No complaints of chest pain or shortness of breath. No headache or dizziness or lightheadedness. Patient has been afebrile. No other acute overnight issues. Patient is being current on IV antibiotics with vancomycin and cefepime. Changed to cefazolin as per ID recommendations. Ultrasound abdomen showed no evidence of significant fluid. Chest x-ray repeat showed improved aeration of the lungs with persistent cardiomegaly and mild pulmonary vascular congestion. Correlate with BNP for CHF. No evidence of pneumonia. Procalcitonin level is not elevated. Blood cultures negative so far. Laboratory data showed WBC 9.7 hemoglobin 9.8 and platelets 170 sodium 135 potassium 3.7 chloride 112 bicarb is 22 BUN 16 creatinine 0.84 and blood sugar 115 B12 greater than 1800 and folate 6.9 TSH 0.66 Current medications reviewed. 01/19/2024 Patient is seen in follow-up today currently undergoing EEG with neurology and infectious disease following. Patient is maintained on IV antibiotics and will continue for now. Awaiting finalized cultures as blood cultures are positive and repeat blood cultures ordered and pending. Continue with local wound care to the right lower extremity and elevating while at rest. Patient is currently afebrile with no reports of chest pain or shortness of breath. Patient was asking when she could go home. Will await repeat cultures to determine clearance or contamination of bacteremia. 01/20/2024 Patient is seen in follow-up today with infectious disease and neurology following. Patient continues on antibiotics in the form of cefazolin showing some clinical improvement and will likely continue on oral Keflex on discharge for a 10-day course. Awaiting repeat finalized cultures. Patient is to continue with local wound care and elevating lower extremities. Patient is afebrile with no reports of chest pain or shortness of breath. Patient has been tolerating diet with no reported nausea or vomiting. Potassium was significantly low along with magnesium and being replaced. Will add daily supplements of potassium. 01/21/2024 Patient is seen in follow-up today with multiple consultations following. Patient continues on IV cefazolin and will transition to oral Keflex on discharge. Patient apparently reported some chest pain early this morning with shortness of breath and cardiac workup was initiated including consulting cardiology. 2D echo is ordered and pending. Patient also was noted to have an elevated D-dimer and underwent CT angio which was negative for PE. Patient reports to feeling much improved and would like to go home. Per cardiology echo remains pending. Review of systems: Constitutional: No reports of fatigue, fever, or chills Cardiovascular: No reports of chest pain or palpitations Respiratory: No reports of shortness of breath or cough GI: No reports of nausea, vomiting, or diarrhea : No reports of dysuria or retention Neurovascular: reports of generalized weakness, reports right lower extremity pain but improving Physical exam: Gen: This is a 53-year-old female who is awake, alert and oriented x 2-3, baseline, well-developed, appears elderly, morbidly obese HEENT: Head is atraumatic, normocephalic. Pupils equal, round. Sclerae is anicteric. NECK: Supple. No JVD. No lymphadenopathy. No thyromegaly. LUNGS: Diminished breath sounds bilaterally otherwise clear to auscultation. No wheezes or rhonchi. No intercostal retractions. HEART: S1, S2 are muffled ABDOMEN: Soft. Morbidly obese bowel sounds are present. No masses. No tenderness. EXTREMITIES: Bilateral lower extremity edema, worse on the right. No calf tenderness. NEUROLOGICAL: Patient is awake, alert and oriented x2-3. Cranial nerves 2 through 12 are grossly intact. Diffusely weak Assessment: Altered mental status secondary to acute metabolic encephalopathy due to infection and mild hepatic encephalopathy. Mentation is back to baseline. Right lower extremity cellulitis present on admission with positive blood cultures, repeat blood cultures are negative Sepsis secondary to above Chest pain, ruled out ACS Diffuse patchy opacities in the lung. Pulm edema versus infection. Procalcitonin level is not elevated. Repeat x-ray showed improved aeration. Lactic acidosis 2.5 admission. Improved. History of portal vein thrombosis and also history of splenorenal shunt placement Prothrombin gene mutation Morbid obesity with a BMI of 71.6 Anxiety Prior to smoking DVT prophylaxis with heparin subcu GI prophylaxis Full code Plan: Patient is continued on antibiotics in the form of cefazolin per ID recommendations. Repeat blood cultures are negative and patient will continue on oral Keflex on discharge for a 10-day course. Continue with local wound care to the right lower extremity. Elevate lower extremities while at rest Patient developed some chest pain early this morning and had troponins that were negative and a D-dimer was ordered which was elevated and underwent CT angio wh ich was negative for PE. Cardiology also ordered 2D echo which was taken and read is pending. Awaiting cardiology clearance for discharge. Patient denies any further chest pain reports to feeling much improved and would like to go home. All other home medications have been reviewed and resumed as appropriate Will discuss with other consultations regarding discharge planning. Currently continuing to wait for 2D echo report Due to multiple complex medical issues, overall prognosis is guarded Discharge in 24 hours The impression and plan of care has been dictated by Marisela Nieto, Nurse Practitioner as directed. Dr. Jackson MD I have performed a history and examination and MDM of this patient, discussed the same with the dictator, and agree with the dictator's assessment and plan as written ,documented as a scribe. Based on total visit time, I have performed more than 50% of the visit. Objective - Vital Signs Vital signs: Vital Signs Temp 97.5 F L 01/21/24 06:55 Pulse 87 01/21/24 06:55 Resp 16 01/21/24 06:55 BP 143/76 01/21/24 06:55 Pulse Ox 97 01/21/24 06:55 FiO2 Intake & Output 01/20/24 01/21/24 01/21/24 18:59 06:59 18:59 Intake Total 2930 240 Output Total 1999 1600 Balance 930 -1600 240 Intake: Oral 2930 240 Output: Urine 1999 1599 Other: Voiding Method External Catheter - Labs CBC & Chem 7: 01/21/24 06:01 01/21/24 06:01 Labs: Abnormal Lab Results - Last 24 Hours (Table) 01/21/24 01/21/24 01/21/24 Range/Units 06:01 06:01 09:35 Hgb 11.0 L (11.4-16.0) gm/dL MCHC 30.8 L (31.0-37.0) g/dL RDW 19.2 H (11.5-15.5) % Plt Count 138 L (150-450) k/uL Monocytes # 1.4 H (0-1.0) k/uL D-Dimer 2.52 H (<0.60) mg/L FEU Sodium 136 L (137-145) mmol/L Potassium 3.1 L (3.5-5.1) mmol/L Carbon Dioxide 33 H (22-30) mmol/L Total Bilirubin 1.4 H (0.2-1.3) mg/dL AST 40 H (14-36) U/L Alkaline Phosphatase 130 H (38-126) U/L Total Protein 5.5 L (6.3-8.2) g/dL Albumin 2.9 L (3.5-5.0) g/dL
--- NOTE | 2024-01-22 10:13 | CA ---
Transthoracic Echo Report Name: Umu Mejia Age: 53 Gender: F : 1970 Exam Date: 01/21/2024 13:54 Exam Location: [facility] Ht (in): 60 Wt (lb): 366 Ordering Physician: Cindy Mays Attending/Referring Phys: [id number], Davon Frame Changer Carlyn Chen, ELIF Procedure CPT: Indications: chest pain, LV function Cardiac Hx: Technical Quality: Fair Contrast 1: Total Dose (mL): Contrast 2: Total Dose (mL): MEASUREMENTS (Male / Female) Normal Values 2D ECHO LV Diastolic Diameter PLAX 5.5 cm 4.2 - 5.9 / 3.9 - 5.3 cm LV Systolic Diameter PLAX 3.8 cm IVS Diastolic Thickness 0.9 cm 0.6 - 1.0 / 0.6 - 0.9 cm LVPW Diastolic Thickness 1.1 cm 0.6 - 1.0 / 0.6 - 0.9 cm LV Relative Wall Thickness 0.4 RV Internal Dim ED PLAX 2.5 cm LA Systolic Diameter LX 4.8 cm 3.0 - 4.0 / 2.7 - 3.8 cm LV Diastolic Volume MOD BP 107.9 cm??? 67 - 155 / 56 - 104 cm??? LV Systolic Volume MOD BP 72.3 cm??? - 58 / 19 - 49 cm??? LV Ejection Fraction MOD BP 33.0 % >= 55 % LV Cardiac Index MOD BP 1113.7 cm???/min???m??? LV Diastolic Volume MOD 4C 125.3 cm??? LV Systolic Volume MOD 4C 66.7 cm??? LV Ejection Fraction MOD 4C 46.8 % LV Cardiac Index MOD 4C 1831.5 cm???/min???m??? LV Diastolic Length 4C 8.7 cm LV Systolic Length 4C 7.5 cm LV Diastolic Volume MOD 2C 89.5 cm??? LV Systolic Volume MOD 2C 67.7 cm??? LV Ejection Fraction MOD 2C 24.4 % LV Cardiac Index MOD 2C 682.4 cm???/min???m??? LV Diastolic Length 2C 8.4 cm LV Systolic Length 2C 7.7 cm LA Volume 113.7 cm??? 18 - 58 / 22 - 52 cm??? LA Volume Index 40.9 cm???/m??? 16 - 28 cm???/m??? M-MODE Aortic Root Diameter MM 3.0 cm LA Systolic Diameter MM 4.8 cm LA Ao Ratio MM 1.6 AV Cusp Separation MM 1.8 cm DOPPLER AV Peak Velocity 283.6 cm/s AV Peak Gradient 32.2 mmHg AV Mean Velocity 208.6 cm/s AV Mean Gradient 18.9 mmHg AV Velocity Time Integral 62.7 cm LVOT Peak Velocity 132.0 cm/s LVOT Peak Gradient 7.0 mmHg LVOT Velocity Time Integral 25.3 cm MV Area PHT 2.4 cm??? Mitral E Point Velocity 140.2 cm/s Mitral A Point Velocity 139.8 cm/s Mitral E to A Ratio 1.0 MV Deceleration Time 312.1 ms TR Peak Velocity 268.4 cm/s TR Peak Gradient 28.8 mmHg FINDINGS Left Ventricle Left ventricular ejection fraction is estimated at 50-55 %. Mildly increased posterior wall thickness. Mildly increased left ventricular diastolic diameter. Mildly increased left ventricular diastolic volume. No obvious regional wall motion abnormalities. Right Ventricle Right ventricular systolic pressure within normal limits. Normal right ventricular global systolic function. Right Atrium Mild right atrial dilatation. Left Atrium Severely increased left atrial diameter. Severely increased left atrial volume. Moderately increased left atrial area. Mitral Valve Structurally normal mitral valve. Mild mitral regurgitation. No mitral stenosis. Aortic Valve Trileaflet aortic valve. No aortic valve stenosis or regurgitation. Normal AV with Mean PG 19 mmHg. Tricuspid Valve Structurally normal tricuspid valve. Mild tricuspid regurgitation. No tricuspid stenosis. Pulmonic Valve Structurally normal pulmonic valve. Trace pulmonic regurgitation. No pulmonic stenosis. Pericardium No pericardial or pleural effusion. Aorta Normal size aortic root and proximal ascending aorta. CONCLUSIONS Left ventricular systolic function is normal with an ejection fraction of 55% Mild right atrial enlargement Mild mitral regurgitation Moderate left atrial enlargement I aortic sclerosis without significant stenosis Previewed by: Dr. Mayito King MD (Electronically Signed) Final Date: 22 January 2024 10:13
[2024-01-22] MEDS: FUROSEMIDE 10 MG/ML 4 ML VIAL IV STA (12:03)
--- NOTE | 2024-01-22 12:24 | P.PN ---
Subjective HISTORY OF PRESENT ILLNESS: This is a 53-year-old female with a past medical history significant for nonalcoholic liver cirrhosis, GERD, and anxiety. 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 We have been asked to see the patient in consultation for chest pain. Patient examined at the bedside. Patient reports having an episode of chest discomfort this morning. She states the pain was in the middle of her chest. She denied any radiation of the pain. EKG was obtained revealing sinus mechanism with no signs of ischemia. Troponins are negative x 2. Patient denies any history of CAD. She is a non-smoker. DIAGNOSTICS: - EKG reveals sinus mechanism with no signs of acute ischemia - Chest xray correlate for volume overload. Cardiomegaly. - Laboratory data: WBC 8.4. Hemoglobin 11.0. Platelet count 138. Sodium 136. Potassium 3.1. BUN 17. Creatinine 0.60. Troponin negative x 2. - Current home cardiac medications include Aldactone 25 mg daily, Bumex 1 mg twice a day 01/22/2024 Patient examined this morning at the bedside. Patient denies any chest pain or pressure. Denies any shortness of breath. She underwent CTA yesterday which was negative for pulmonary embolism. Echocardiogram completed revealing ejection fraction 55%, mild MR, mild right atrial enlargement and moderate left atrial enlargement. Vital signs are stable. PHYSICAL EXAM: VITAL SIGNS: Reviewed. GENERAL: Well-developed in no acute distress. HEENT: Head is normocephalic. Pupils are equal, round. Sclerae anicteric. Mucous membranes of the mouth are moist. Neck supple. No JVD or thyromegaly LUNGS: Respirations even and unlabored. Lungs essentially clear to auscultation bilaterally. HEART: Regular rate and rhythm. S1 and S2 heard. ABDOMEN: Soft. Nondistended. Nontender. EXTREMITIES: Normal range of motion. No clubbing or cyanosis. Peripheral pulses intact. No lower extremity edema NEUROLOGIC: Awake and alert. Oriented x 3. ASSESSMENT: Altered mental status Acute metabolic encephalopathy Right lower extremity cellulitis Sepsis Chest pain, troponin negative x 2 History of nonalcoholic liver cirrhosis History of GERD History of anxiety Former nicotine dependence PLAN: Continue current cardiac medications No further inpatient recommendations from a cardiac standpoint Patient is stable for discharge home today from a cardiology perspective We will sign off. Please reconsult if needed. Nurse practitioner note has been reviewed by physician. Signing provider agrees with the documented findings, assessment, and plan of care documented by SPOT BILLING CLERK as a scribe. Objective - Vital Signs Vital signs: Vital Signs Temp 98.5 F 01/22/24 07:07 Pulse 85 01/22/24 11:41 Resp 16 01/22/24 07:07 BP 116/75 01/22/24 07:07 Pulse Ox 89 L 01/22/24 07:07 FiO2 Intake & Output 01/21/24 01/22/24 01/22/24 18:59 06:59 18:59 Intake Total 3760 Output Total 2800 Balance 960 Intake: Oral 3760 Output: Urine 2800 Other: Voiding Method External Catheter External Catheter External Catheter # Voids 1 1 - Labs CBC & Chem 7: 01/21/24 06:01 01/21/24 06:01 Labs: Microbiology - Last 24 Hours (Table) 01/20/24 05:36 Blood Culture - Preliminary Blood
[2024-01-22 13:00] VITALS: BP 105/62; RESP 18; TEMP 98.4
--- NOTE | 2024-01-22 14:43 | P.EN ---
Patient will require oxygen at home, 2 L via nasal cannula due to COPD
--- NOTE | 2024-01-22 15:20 | P.PN ---
Subjective Progress Note Date: 01/22/24 Principal diagnosis: Reason for follow-up is fever possible right leg cellulitis Patient is a 53-year-old female with a past medical history significant for reflux did have liver failure on transplant list patient has been brought into the hospital for evaluation of altered mental status for the last 3 to 4 days subsequently did spike a fever and there was concern for right lower extremity cellulitis and possible SBP. On today's evaluation that is 01/22/2024, the patient continues to be afebrile, the patient is on 2 L current oxygen and breathing comfortably, the Pt denies having any chest pain or cough, the patient denies having any abdominal pain no vomiting or any diarrhea has been reported by the nursing staff, patient mention feeling better. Patient did not have any lab draw today repeat blood cultures has been negative Objective - Vital Signs Vital signs: Vital Signs Temp 98.4 F 01/22/24 12:05 Pulse 85 01/22/24 12:05 Resp 18 01/22/24 12:05 BP 105/62 01/22/24 12:05 Pulse Ox 92 L 01/22/24 12:05 FiO2 Intake & Output 01/21/24 01/22/24 01/22/24 18:59 06:59 18:59 Intake Total 3760 Output Total 2800 Balance 960 Intake: Oral 3760 Output: Urine 2800 Other: Voiding Method External Catheter External Catheter External Catheter # Voids 1 1 - Exam GENERAL DESCRIPTION: Middle-age female lying in bed in no distress RESPIRATORY SYSTEM: Unlabored breathing , decreased breath sounds at bases HEART: S1 S2 regular rate and rhythm , ABDOMEN: Soft , no tenderness EXTREMITIES: Right leg redness has decreased in intensity and no open wound or drainage - Labs CBC & Chem 7: 01/21/24 06:01 01/21/24 06:01 Labs: Microbiology - Last 24 Hours (Table) 01/20/24 05:36 Blood Culture - Preliminary Blood Assessment and Plan (1) Sepsis Current Visit: Yes Status: Acute Code(s): A41.9 - SEPSIS, UNSPECIFIED ORGANISM SNOMED Code(s): 85903392 (2) Cellulitis of right leg Current Visit: Yes Status: Acute Code(s): L03.115 - CELLULITIS OF RIGHT LOWER LIMB SNOMED Code(s): 45831230160009895 (3) Positive blood culture Current Visit: Yes Status: Acute Code(s): R78.81 - BACTEREMIA SNOMED Code(s): 810609286 Plan: 1patient presented to hospital with mental status changes questionable hepatic encephalopathy this patient did have history of liver failure questionably related to SBP however the patient also noticed to have increasing swelling and redness to the right lower extremity and a possible component of right lower extremity cellulitis. 2-positive blood culture with gram-positive cocci which could not be identified by bio fire possible contamination, await final ID sensitivity repeat blood culture has been negative 3patient did have improvement to the right lower extremity cellulitis resolution of the fever and white count normalized 4patient to continue with the cefazolin with the plan to finish therapy with oral Keflex Dictation was produced using [employer] dictation software. please excuse any grammatical, word or spelling errors. Time with Patient: Less than 30
[2024-01-22 15:45] VITALS: PULSE 84
--- NOTE | 2024-01-26 10:03 | P.DS ---
Providers Date of admission: 01/16/24 15:15 Expected date of discharge: 01/22/24 Attending physician: Rashida Fleming Consults: 01/16/24 15:13 Consult Physician Routine Consulting Provider: Maury Brooks Consult Reason/Comments: ams Do you want consulting provider notified?: Yes Consult Physician Routine Consulting Provider: Nanette Levine Consult Reason/Comments: sirs Do you want consulting provider notified?: Yes 01/21/24 06:10 Consult Physician Routine Consulting Provider: Margarito Vickers Consult Reason/Comments: chest pain; sob Do you want consulting provider notified?: Yes, Notify in am Primary care physician: Nato Beck Hospital Course: Final diagnosis Altered mental status secondary to acute metabolic encephalopathy due to infection and mild hepatic encephalopathy. Mentation is back to baseline. Right lower extremity cellulitis present on admission with positive blood cultures, repeat blood cultures are negative Sepsis secondary to above Acute hypoxic respiratory failure secondary to COPD as well as possible component of volume overload Chest pain, ruled out ACS Diffuse patchy opacities in the lung. Pulm edema versus infection. Procalcitonin level is not elevated. Repeat x-ray showed improved aeration. Lactic acidosis 2.5 admission. Improved. History of portal vein thrombosis and also history of splenorenal shunt placement Prothrombin gene mutation Morbid obesity with a BMI of 71.6 Anxiety Prior to smoking DVT prophylaxis with heparin subcu GI prophylaxis Full code Discharge disposition Patient is being discharged in a stable condition with guarded prognosis to home. Patient will follow-up with Dr. Nato Beck in the outpatient setting upon discharge. Patient is to continue with current medications on discharge and outpatient follow-up with infectious disease as well as pulmonary and cardiology outpatient as scheduled. Total time taken is greater than 35 minutes. Hospital course This is a 53-year-old female who was recently admitted with acute altered mental status likely metabolic encephalopathy as well as hepatic encephalopathy secondary to right lower extremity cellulitis with positive blood cultures and sepsis, present on admission. Multiple consultations following and patient has shown clinical improvement and will continue oral Keflex. Patient did have a bout of chest pain and ACS was ruled out. Patient requiring oxygen likely component of volume overload as well as COPD exacerbation. Patient reports she did smoke for many years and reports she does use inhalers in the outpatient setting. Patient is requiring oxygen via nasal cannula at 2 L to manage COPD. Patient will be discharged home on oxygen and encouraged patient to follow-up with pulmonary for further testing and evaluation. Patient is adamant about going home today reports to feeling improved and has been cleared by other consultations. Please refer to other consultation notes for further HPI. Currently no reports of chest pain, shortness of breath, or palpitations. Patient is afebrile. No reports of nausea or vomiting and patient is tolerating diet. Patient will be discharged home today. Guarded prognosis and high risk for readmissions Physical exam: Gen: This is a 53-year-old female who is awake, alert and oriented x 3, well- developed, morbidly obese, appears older than stated age HEENT: Head is atraumatic, normocephalic. Pupils equal, round. Sclerae is anicteric. NECK: Supple. No JVD. No lymphadenopathy. No thyromegaly. LUNGS: Diminished breath sounds bilaterally otherwise clear to auscultation. No wheezes or rhonchi. No intercostal retractions. HEART: S1, S2 are muffled ABDOMEN: Soft. Morbidly obese bowel sounds are present. No masses. No tenderness. EXTREMITIES: No pedal edema. No calf tenderness. Bilateral lower extremity chronic edema noted, right lower extremity significantly improved with no surrounding further redness or swelling noted NEUROLOGICAL: Patient is awake, alert and oriented x3. Cranial nerves 2 through 12 are grossly intact. Please refer to medication reconciliation sheet for a list of medications. The impression and plan of care has been dictated by Marisela Nieto, Nurse Practitioner as directed. Dr. Jackson MD I have performed a history and examination and MDM of this patient, discussed the same with the dictator, and agree with the dictator's assessment and plan as written ,documented as a scribe. Based on total visit time, I have performed more than 50% of the visit. Patient Condition at Discharge: Fair Plan - Discharge Summary New Discharge Prescriptions: New Cephalexin [Keflex] 500 mg PO Q6HR 10 Days #40 cap Potassium Chloride [Klor-Con 10 ER] 20 meq PO DAILY 30 Days #60 tab Nitroglycerin Sl Tabs [Nitrostat] 0.4 mg SUBLINGUAL Q5M PRN #25 tab PRN Reason: Chest Pain Ibuprofen [Motrin] 800 mg PO BID PRN tab PRN Reason: Fever Nystatin 100,000 Unit/gm Powd [Mycostatin Powder] 1 applic TOPICAL BID each Acetaminophen Tab [Tylenol] 650 mg PO Q6HR PRN tab PRN Reason: Fever And/ Or Pain Continue Omeprazole [PriLOSEC] 20 mg PO DAILY Cyanocobalamin (Vitamin B-12) [Vitamin B-12] 1,000 mcg PO DAILY Spironolactone [Aldactone] 25 mg PO DAILY Rifaximin [Xifaxan] 550 mg PO BID Montelukast [Singulair] 10 mg PO HS Gabapentin 300 mg PO TID Fluticasone/Umeclidin/Vilanter [Trelegy Ellipta 100-62.5-25] 1 puff INHALATION RT-DAILY Magnesium Oxide [Magox 400] 400 mg PO TID PARoxetine HCL [PARoxetine HCL Cr] 25 mg PO DAILY Cholecalciferol [Vitamin D3 (125 Mcg = 5000 Iu)] 125 mcg PO HS Bumetanide [BUMEX] 1 mg PO BID Fexofenadine HCl [Ann [place] Allergy] 180 mg PO DAILY Vitamin E (Dl,Tocopheryl Acet) [Vitamin E (400 Iu = 180 mg)] 400 unit PO DAILY Albuterol Inhaler [Ventolin Hfa Inhaler] 2 puff INHALATION RT-Q6H PRN PRN Reason: Shortness Of Breath Lactulose 20 gm PO BID Discharge Medication List Cyanocobalamin (Vitamin B-12) [Vitamin B-12] 1,000 mcg PO DAILY 12/17/16 [History] Omeprazole [PriLOSEC] 20 mg PO DAILY 12/17/16 [History] Bumetanide [BUMEX] 1 mg PO BID 12/05/23 [History] Cholecalciferol [Vitamin D3 (125 Mcg = 5000 Iu)] 125 mcg PO HS 12/05/23 [History] Fluticasone/Umeclidin/Vilanter [Trelegy Ellipta 100-62.5-25] 1 puff INHALATION RT-DAILY 12/05/23 [History] Gabapentin 300 mg PO TID 12/05/23 [History] Magnesium Oxide [Magox 400] 400 mg PO TID 12/05/23 [History] Montelukast [Singulair] 10 mg PO HS 12/05/23 [History] PARoxetine HCL [PARoxetine HCL Cr] 25 mg PO DAILY 12/05/23 [History] Rifaximin [Xifaxan] 550 mg PO BID 12/05/23 [History] Spironolactone [Aldactone] 25 mg PO DAILY 12/05/23 [History] Albuterol Inhaler [Ventolin Hfa Inhaler] 2 puff INHALATION RT-Q6H PRN 01/16/24 [History] Fexofenadine HCl [Ann Marie Allergy] 180 mg PO DAILY 01/16/24 [History] Lactulose 20 gm PO BID 01/16/24 [History] Vitamin E (Dl,Tocopheryl Acet) [Vitamin E (400 Iu = 180 mg)] 400 unit PO DAILY 01/16/24 [History] Acetaminophen Tab [Tylenol] 650 mg PO Q6HR PRN tab 01/21/24 [Rx] Cephalexin [Keflex] 500 mg PO Q6HR 10 Days #40 cap 01/21/24 [Rx] Ibuprofen [Motrin] 800 mg PO BID PRN tab 01/21/24 [Rx] Nitroglycerin Sl Tabs [Nitrostat] 0.4 mg SUBLINGUAL Q5M PRN #25 tab 01/21/24 [Rx] Nystatin 100,000 Unit/gm Powd [Mycostatin Powder] 1 applic TOPICAL BID each 01/21/24 [Rx] Potassium Chloride [Klor-Con 10 ER] 20 meq PO DAILY 30 Days #60 tab 01/21/24 [Rx] Follow up Appointment(s)/Referral(s): [facility],Equipment [NON-STAFF] - 1 Week Nato Beck MD [Primary Care Provider] - 01/26/24 3:00 pm (appointment with [facility]) Nanette Levine MD [STAFF PHYSICIAN] - 02/02/24 2:30 pm ( ) Mayito King MD [STAFF PHYSICIAN] - 1 Week (The office will call with a follow up appointment) Patient Instructions/Handouts: Cephalexin (By mouth), Nitroglycerin (By mouth), Potassium Chloride (By mouth), Cellulitis (ED), Using Oxygen at Home (DC), Sepsis (DC) Activity/Diet/Wound Care/Special Instructions: Activity limited until follow-up Follow-up with primary care provider on discharge Follow-up with infectious disease outpatient Continue Keflex 500 mg 4 times daily for the next 10 days Follow-up cardiology outpatient Discharge Disposition: HOME SELF-CARE
== END 2024-01-22 18:37 | disposition home or self-care (01) | DRG 871 ==
LOC: EC 11:29 → 5NMEDONC 15:15
PROVIDERS: ADMIT Hospitalist; ATTEND Hospitalist
DX: A41.9 Sepsis, unspecified organism (principal); G93.41 Metabolic encephalopathy; J96.01 Acute respiratory failure with hypoxia; I81 Portal vein thrombosis; D68.52 Prothrombin gene mutation; Z68.45 Body mass index [BMI] 70 or greater, adult; E87.20 Acidosis, unspecified; J44.1 Chronic obstructive pulmonary disease with (acute) exacerbation; L03.115 Cellulitis of right lower limb; K21.9 Gastro-esophageal reflux disease without esophagitis; R26.81 Unsteadiness on feet; D64.9 Anemia, unspecified; E66.01 Morbid (severe) obesity due to excess calories; F41.9 Anxiety disorder, unspecified; I50.9 Heart failure, unspecified; K72.90 Hepatic failure, unspecified without coma; K74.60 Unspecified cirrhosis of liver; K76.0 Fatty (change of) liver, not elsewhere classified; K76.82 Hepatic encephalopathy; Z76.82 Awaiting organ transplant status; Z79.899 Other long term (current) drug therapy; Z86.718 Personal history of other venous thrombosis and embolism; Z87.891 Personal history of nicotine dependence; Z96.653 Presence of artificial knee joint, bilateral; Z20.822 Contact with and (suspected) exposure to COVID-19
CPT/HCPCS: 36415; 70450; 71045; 71046; 71275; 76705; 80048; 80053; 81001; 82140; 82565; 82607; 82746; 83605; 83690; 83735; 84145; 84443; 84484; 85025; 85379; 85610; 85730; 87040; 87636; 93005; 93306; 94640; 95816; 96365; 96366; 96368; 96375; 99285

== ENCOUNTER 2024-06-12 04:33 | Inpatient (IN) | payer BC, MEDICARE ==
--- NOTE | 2024-06-12 04:52 | ED ---
General Adult HPI - General Chief complaint: Altered Mental Status Stated complaint: altered mental status Time Seen by Provider: 06/12/24 04:33 Source: patient ([id number]), EMS, RN notes reviewed, old records reviewed Mode of arrival: EMS Limitations: altered mental status - History of Present Illness Initial comments: Patient is a 53-year-old female presents emergency department with altered mental status. Apparently it started this morning when she awoke. Was found by her altered and confused. Is pretty typical when her ammonia levels are elevated. Has a history of nonalcoholic liver disease. Is typically ANO x 3-4. Currently ANO x 1. Cannot provide any history. She is pleasant and conversational. She has no other acute complaints at this time. Presents for further evaluation at this time. Patient also has a history of COPD as well as volume overload state. - Related Data Home Medications Medication Instructions Recorded Confirmed Cyanocobalamin (Vitamin B-12) 1,000 mcg PO DAILY 12/17/16 01/16/24 [Vitamin B-12] Omeprazole [PriLOSEC] 20 mg PO DAILY 12/17/16 01/16/24 Bumetanide [BUMEX] 1 mg PO BID 12/05/23 01/16/24 Cholecalciferol [Vitamin D3 (125 125 mcg PO HS 12/05/23 01/16/24 Mcg = 5000 Iu)] Fluticasone/Umeclidin/Vilanter 1 puff INHALATION RT-DAILY 12/05/23 01/16/24 [Trelegy Ellipta 100-62.5-25] Gabapentin 300 mg PO TID 12/05/23 01/16/24 Magnesium Oxide [Magox 400] 400 mg PO TID 12/05/23 01/16/24 Montelukast [Singulair] 10 mg PO HS 12/05/23 01/16/24 PARoxetine HCL [PARoxetine HCL Cr] 25 mg PO DAILY 12/05/23 01/16/24 Rifaximin [Xifaxan] 550 mg PO BID 12/05/23 01/16/24 Spironolactone [Aldactone] 25 mg PO DAILY 12/05/23 01/16/24 Albuterol Inhaler [Ventolin Hfa 2 puff INHALATION RT-Q6H PRN 01/16/24 01/16/24 Inhaler] Fexofenadine HCl [Ann [place] Allergy] 180 mg PO DAILY 01/16/24 01/16/24 Lactulose 20 gm PO BID 01/16/24 01/16/24 Vitamin E (Dl,Tocopheryl Acet) 400 unit PO DAILY 01/16/24 01/16/24 [Vitamin E (400 Iu = 180 mg)] Previous Rx's Medication Instructions Recorded Acetaminophen Tab [Tylenol] 650 mg PO Q6HR PRN tab 01/21/24 Cephalexin [Keflex] 500 mg PO Q6HR 10 Days #40 cap 01/21/24 Ibuprofen [Motrin] 800 mg PO BID PRN tab 01/21/24 Nitroglycerin Sl Tabs [Nitrostat] 0.4 mg SUBLINGUAL Q5M PRN #25 tab 01/21/24 Nystatin 100,000 Unit/gm Powd 1 applic TOPICAL BID each 01/21/24 [Mycostatin Powder] Potassium Chloride [Klor-Con 10 ER] 20 meq PO DAILY 30 Days #60 tab 01/21/24 Allergies Allergy/AdvReac Type Severity Reaction Status Date / Time No Known Allergies Allergy Verified 01/16/24 15:00 Review of Systems ROS Statement: Those systems with pertinent positive or pertinent negative responses have been documented in the HPI. Review of Systems: CONST: Denies fever EYES: Denies blurry vision ENT: Denies nasal congestion C/V: Denies Chest pain RESP: Denies shortness of breath GI: Denies abdominal pain : Denies dysuria SKIN: Denies rash. MSK: Denies joint pain. NEURO: Denies headache ROS Other: All systems not noted in ROS Statement are negative. 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 HEAVY & IRREG MENSES, ANEMIA; HAD IRON INFUSIONS X2 11/28, 12/05/16. History of Any Multi-Drug Resistant Organisms: None Reported Past Surgical History: Cholecystectomy, Joint Replacement Additional Past Surgical History / Comment(s): PARTIAL MATTHEW KNEE REPLACEMENT. Past Anesthesia/Blood Transfusion Reactions: Motion Sickness, Postoperative Nausea & Vomiting (PONV) Past Psychological History: Anxiety Smoking Status: Former smoker Past Alcohol Use History: None Reported Past Drug Use History: None Reported - Past Family History Mother History Unknown: Yes Family Medical History: Blood Disorder Additional Family Medical History / Comment(s): LEIDEN FACTOR Sister(s) History Unknown: Yes Family Medical History: Blood Disorder Additional Family Medical History / Comment(s): LEIDEN FACTOR General Exam - General Exam Comments Initial Comments: General: Appears in no acute distress. HEAD: Normal with no signs of head trauma. EYES: PERRLA, EOMI, conjunctiva normal, no discharge. ENT: Hearing grossly intact, normal oropharynx. RESPIRATORY: Clear breath sounds bilaterally. No wheezes, rales, or rhonchi. C/V: Regular rate and rhythm. S1 and S2 auscultated, peripheral edema, peripheral pulses 2+ and intact throughout ABD: Abd is soft, nontender, nondistended EXT: Normal range of motion, no obvious deformity SKIN: No rashes or lesions observed on exposed skin. NEURO: Alert and oriented x 1. Moves all 4 extremities. No obvious focal deficits. Pleasant confusion. Limitations: altered mental status Course Vital Signs 06/12/24 04:35 Temperature 101.2 F H Pulse Rate 109 H Respiratory 18 Rate Blood Pressure 152/74 O2 Sat by Pulse 94 L Oximetry Medical Decision Making - Medical Decision Making Was pt. sent in by a medical professional or institution (, PA, BASIN TENDER, urgent care, hospital, or custodial...) When possible be specific @ -No Did you speak to anyone other than the patient for history (EMS, parent, family, police, friend...)? What history was obtained from this source @ -No Did you review nursing and triage notes (agree or disagree)? Why? @ -I reviewed and agree with nursing and triage notes Were old charts reviewed (outside hosp., previous admission, EMS record, old EKG, old radiological studies, urgent care reports/EKG's, custodial records)? Report findings @ -Reviewed old charts when patient presented with similar complaints in both November and January 2024. Differential Diagnosis (chest pain, altered mental status, abdominal pain women, abdominal pain men, vaginal bleeding, weakness, fever, dyspnea, syncope, headache, dizziness, GI bleed, back pain, seizure, CVA, palpatations, mental health, musculoskeletal)? @ -Differential Altered Mental Status: Hypoglycemia, DKA, hypercapnia, ETOH, overdose, CO poisoning, trauma, myxedema coma, HTN encephalopathy, infection, encephalitis, psychosis, intercranial hemorrhage, hepatic encephalopathy, meningitis, CVA, this is not meant to be an all-inclusive list EKG interpreted by me (3pts min.). @ -As above X-rays interpreted by me (1pt min.). @ -Chest x-ray shows pulmonary vascular congestion similar to prior, possibly slightly worse. CT interpreted by me (1pt min.). @ -CT brain shows no obvious acute intracranial process. U/S interpreted by me (1pt. min.). @ -None done What testing was considered but not performed or refused? (CT, X-rays, U/S, labs)? Why? @ -None What meds were considered but not given or refused? Why? @ -Considered antibiotics however no obvious source of infection. Chest x-ray appears to be more volume overload state which fits with the clinical picture as she has not taken her diuretic medications for the last 48 hours. Did you discuss the management of the patient with other professionals (marin morataya i.e. , PA, BASIN TENDER, lab, RT, psych nurse, social work msw, commis chef, teacher, digital controls technical officer, child support case officer)? Give summary @ -Discussed with EMKAREN who accepted the admission. Was smoking cessation discussed for >3mins.? @ -No Was critical care preformed (if so, how long)? @ -No Were there social determinants of health that impacted care today? How? (Homelessness, low income, unemployed, alcoholism, drug addiction, transportation, low edu. Level, literacy, decrease access to med. care, half-way, rehab)? @ -No Was there de-escalation of care discussed even if they declined (Discuss DNR or withdrawal of care, Hospice)? DNR status @ -No What co-morbidities impacted this encounter? (DM, HTN, Smoking, COPD, CAD, Cancer, CVA, ARF, Chemo, Hep., AIDS, mental health diagnosis, sleep apnea, morbid obesity)? @ -None Was patient admitted / discharged? Hospital course, mention meds given and route, prescriptions, significant lab abnormalities, going to OR and other pertinent info. @ -Based on the patient's presentation and physical exam, presents emergency department complaining of altered mental status. Is currently ANO x 1 is typically and O x 4. This has happened previously when patient's ammonia level increases that she does have a history of nonalcoholic liver disease. Is on lactulose at baseline. Presents for further evaluation at this time. is not yet at bedside but patient is alert and oriented x 1. Is pleasantly confused. Patient is febrile and is given a dose of Tylenol. Tachycardia likely secondary to fever. Patient's laboratory studies returned remarkable for a slight leukocytosis of 12. Patient appears to have hepatic encephalopathy with an ammonia level of 121. Remainder the labs unremarkable. Chest x-ray does show pulmonary vascular congestion. Radiology cannot rule out pneumonia however she has no symptoms of it. Discussed with patient's who was able to give me more details, including that patient has not taken her n ormal twice daily Bumex for at least 2 days and she has not had any cough or nasal congestion at all. Therefore I do believe that the chest x-ray findings are likely related to volume overload. I will give her a dose of IV Lasix and restart her Bumex. CT brain returned remarkable for no obvious acute intracranial process. Due to the patient's hyperammonemia, patient will be started on lactulose. Patient will be admitted with neurology consult. She was in agreement this plan. Undiagnosed new problem with uncertain prognosis? @ -No Drug Therapy requiring intensive monitoring for toxicity (Heparin, Nitro, Insulin, Cardizem)? @ -No Were any procedures done? @ -No Diagnosis/symptom? @ -Hepatic encephalopathy secondary to hyperammonemia, volume overload state, fever of unknown origin Acute, or Chronic, or Acute on Chronic? @ -Acute Uncomplicated (without systemic symptoms) or Complicated (systemic symptoms)? @ -Complicated Side effects of treatment? @ -None Exacerbation, Progression, or Severe Exacerbation] @ -No Poses a threat to life or bodily function? @ -Yes - Lab Data Result diagrams: 06/12/24 04:52 06/12/24 04:52 Lab Results 06/12/24 06/12/24 06/12/24 Range/Units 04:52 04:52 04:52 WBC 12.5 H (3.8-10.6) k/uL RBC 4.16 (3.80-5.40) m/uL Hgb 12.3 (11.4-16.0) gm/dL Hct 38.1 (34.0-46.0) % MCV 91.4 (80.0-100.0) fL MCH 29.6 (25.0-35.0) pg MCHC 32.4 (31.0-37.0) g/dL RDW 15.3 (11.5-15.5) % Plt Count 130 L (150-450) k/uL MPV 8.6 Neutrophils % 86 % Lymphocytes % 4 % Monocytes % 8 % Eosinophils % 0 % Basophils % 0 % Neutrophils # 10.7 H (1.3-7.7) k/uL Lymphocytes # 0.5 L (1.0-4.8) k/uL Monocytes # 1.0 (0-1.0) k/uL Eosinophils # 0.0 (0-0.7) k/uL Basophils # 0.0 (0-0.2) k/uL PT 12.3 (10.0-12.5) sec INR 1.1 (<1.2) APTT 23.7 (22.0-30.0) sec Sodium 135 L (137-145) mmol/L Potassium 3.9 (3.5-5.1) mmol/L Chloride 104 (98-107) mmol/L Carbon Dioxide 25 (22-30) mmol/L Anion Gap 6 mmol/L BUN 26 H (7-17) mg/dL Creatinine 0.61 (0.52-1.04) mg/dL Est GFR (CKD-EPI)AfAm >90 (>60 ml/min/1.73 sqM) Est GFR (CKD-EPI)NonAf >90 (>60 ml/min/1.73 sqM) Glucose 141 H (74-99) mg/dL POC Glucose (mg/dL) (70-110) mg/dL POC Glu Yard Coordinator ID Calcium 9.9 (8.4-10.2) mg/dL Total Bilirubin 1.6 H (0.2-1.3) mg/dL AST 45 H (14-36) U/L ALT 36 H (4-34) U/L Alkaline Phosphatase 119 (38-126) U/L Ammonia (<30) umol/L NT-Pro-B Natriuret Pep 383 pg/mL Total Protein 6.5 (6.3-8.2) g/dL Albumin 3.7 (3.5-5.0) g/dL Urine Color Urine Appearance (Clear) Urine pH (5.0-8.0) Ur Specific [place] (1.001-1.035) Urine Protein (Negative) Urine Glucose (UA) (Negative) Urine Ketones (Negative) Urine Blood (Negative) Urine Nitrite (Negative) Urine Bilirubin (Negative) Urine Urobilinogen (<2.0) mg/dL Ur Leukocyte Esterase (Negative) Urine Opiates Screen (NotDetected) Ur Oxycodone Screen (NotDetected) Urine Methadone Screen (NotDetected) Ur Barbiturates Screen (NotDetected) U Tricyclic Antidepress (NotDetected) Ur Phencyclidine Scrn (NotDetected) Ur Amphetamines Screen (NotDetected) U Methamphetamines Scrn (NotDetected) U Benzodiazepines Scrn (NotDetected) Urine Cocaine Screen (NotDetected) U Marijuana (THC) Screen (NotDetected) Serum Alcohol <10 mg/dL Influenza Type A (PCR) (Not Detectd) Influenza Type B (PCR) (Not Detectd) RSV (PCR) (Not Detectd) SARS-CoV-2 (PCR) (Not Detectd) 06/12/24 06/12/24 06/12/24 Range/Units 04:52 05:00 05:03 WBC (3.8-10.6) k/uL RBC (3.80-5.40) m/uL Hgb (11.4-16.0) gm/dL Hct (34.0-46.0) % MCV (80.0-100.0) fL MCH (25.0-35.0) pg MCHC (31.0-37.0) g/dL RDW (11.5-15.5) % Plt Count (150-450) k/uL MPV Neutrophils % % Lymphocytes % % Monocytes % % Eosinophils % % Basophils % % Neutrophils # (1.3-7.7) k/uL Lymphocytes # (1.0-4.8) k/uL Monocytes # (0-1.0) k/uL Eosinophils # (0-0.7) k/uL Basophils # (0-0.2) k/uL PT (10.0-12.5) sec INR (<1.2) APTT (22.0-30.0) sec Sodium (137-145) mmol/L Potassium (3.5-5.1) mmol/L Chloride (98-107) mmol/L Carbon Dioxide (22-30) mmol/L Anion Gap mmol/L BUN (7-17) mg/dL Creatinine (0.52-1.04) mg/dL Est GFR (CKD-EPI)AfAm (>60 ml/min/1.73 sqM) Est GFR (CKD-EPI)NonAf (>60 ml/min/1.73 sqM) Glucose (74-99) mg/dL POC Glucose (mg/dL) 130 H (70-110) mg/dL POC Glu Yard Coordinator ID Burgess Fontanez Calcium (8.4-10.2) mg/dL Total Bilirubin (0.2-1.3) mg/dL AST (14-36) U/L ALT (4-34) U/L Alkaline Phosphatase (38-126) U/L Ammonia 121 H (<30) umol/L NT-Pro-B Natriuret Pep pg/mL Total Protein (6.3-8.2) g/dL Albumin (3.5-5.0) g/dL Urine Color Urine Appearance (Clear) Urine pH (5.0-8.0) Ur Specific Majestic (1.001-1.035) Urine Protein (Negative) Urine Glucose (UA) (Negative) Urine Ketones (Negative) Urine Blood (Negative) Urine Nitrite (Negative) Urine Bilirubin (Negative) Urine Urobilinogen (<2.0) mg/dL Ur Leukocyte Esterase (Negative) Urine Opiates Screen (NotDetected) Ur Oxycodone Screen (NotDetected) Urine Methadone Screen (NotDetected) Ur Barbiturates Screen (NotDetected) U Tricyclic Antidepress (NotDetected) Ur Phencyclidine Scrn (NotDetected) Ur Amphetamines Screen (NotDetected) U Methamphetamines Scrn (NotDetected) U Benzodiazepines Scrn (NotDetected) Urine Cocaine Screen (NotDetected) U Marijuana (THC) Screen (NotDetected) Serum Alcohol mg/dL Influenza Type A (PCR) Not Detected (Not Detectd) Influenza Type B (PCR) Not Detected (Not Detectd) RSV (PCR) Not Detected (Not Detectd) SARS-CoV-2 (PCR) Not Detected (Not Detectd) 03/29/25 03/29/25 Range/Units 05:15 05:16 WBC (3.8-10.6) k/uL RBC (3.80-5.40) m/uL Hgb (11.4-16.0) gm/dL Hct (34.0-46.0) % MCV (80.0-100.0) fL MCH (25.0-35.0) pg MCHC (31.0-37.0) g/dL RDW (11.5-15.5) % Plt Count (150-450) k/uL MPV Neutrophils % % Lymphocytes % % Monocytes % % Eosinophils % % Basophils % % Neutrophils # (1.3-7.7) k/uL Lymphocytes # (1.0-4.8) k/uL Monocytes # (0-1.0) k/uL Eosinophils # (0-0.7) k/uL Basophils # (0-0.2) k/uL PT (10.0-12.5) sec INR (<1.2) APTT (22.0-30.0) sec Sodium (137-145) mmol/L Potassium (3.5-5.1) mmol/L Chloride (98-107) mmol/L Carbon Dioxide (22-30) mmol/L Anion Gap mmol/L BUN (7-17) mg/dL Creatinine (0.52-1.04) mg/dL Est GFR (CKD-EPI)AfAm (>60 ml/min/1.73 sqM) Est GFR (CKD-EPI)NonAf (>60 ml/min/1.73 sqM) Glucose (74-99) mg/dL POC Glucose (mg/dL) (70-110) mg/dL POC Glu Yard Coordinator ID Calcium (8.4-10.2) mg/dL Total Bilirubin (0.2-1.3) mg/dL AST (14-36) U/L ALT (4-34) U/L Alkaline Phosphatase (38-126) U/L Ammonia (<30) umol/L NT-Pro-B Natriuret Pep pg/mL Total Protein (6.3-8.2) g/dL Albumin (3.5-5.0) g/dL Urine Color Yellow Urine Appearance Clear (Clear) Urine pH 8.0 (5.0-8.0) Ur Specific Majestic 1.024 (1.001-1.035) Urine Protein Trace H (Negative) Urine Glucose (UA) Negative (Negative) Urine Ketones Negative (Negative) Urine Blood Negative (Negative) Urine Nitrite Negative (Negative) Urine Bilirubin Negative (Negative) Urine Urobilinogen 2.0 (<2.0) mg/dL Ur Leukocyte Esterase Negative (Negative) Urine Opiates Screen Not Detected (NotDetected) Ur Oxycodone Screen Not Detected (NotDetected) Urine Methadone Screen Not Detected (NotDetected) Ur Barbiturates Screen Not Detected (NotDetected) U Tricyclic Antidepress Not Detected (NotDetected) Ur Phencyclidine Scrn Not Detected (NotDetected) Ur Amphetamines Screen Not Detected (NotDetected) U Methamphetamines Scrn Not Detected (NotDetected) U Benzodiazepines Scrn Not Detected (NotDetected) Urine Cocaine Screen Not Detected (NotDetected) U Marijuana (THC) Screen Not Detected (NotDetected) Serum Alcohol mg/dL Influenza Type A (PCR) (Not Detectd) Influenza Type B (PCR) (Not Detectd) RSV (PCR) (Not Detectd) SARS-CoV-2 (PCR) (Not Detectd) - EKG Data -: EKG Interpreted by Me EKG Comments: 12-lead Electrocardiogram Interpretation Note EKG was reviewed and interpreted by myself. 12-lead ECG performed at 0457 is interpreted by me as revealing tachycardia at a rate of 109 beats per minute. [place] is normal. MO interval is 169 ms, QRS duration is 98 ms, QTc is 384 ms.. There were no ST or T wave abnormalities to suggest myocardial ischemia or injury. R wave progression across the precordium was satisfactory. By my i nterpretation this EKG is non-diagnostic for acute ischemia. Disposition Clinical Impression: Hepatic encephalopathy, Fever of unknown origin, Volume overload, AMS (altered mental status) Disposition: ADMITTED IP TO THIS HOSP Condition: Stable Referrals: None,Stated [REFERRING] - 1-2 days Time of Disposition: 06:13
[2024-06-12 05:00] LABS: Basophils % (A) 0 %; Eosinophils % (A) 0 %; HCT 38.1 % (34.0-46.0); HGB 12.3 gm/dL (11.4-16.0); Lymphocytes # (A) 0.5 k/uL (1.0-4.8); Lymphocytes % (A) 4 %; MCH 29.6 pg (25.0-35.0); MCHC 32.4 g/dL (31.0-37.0); MCV 91.4 fL (80.0-100.0); Mean Platelet Volume 8.6; Monocytes % (A) 8 %; Neutrophils # (A) 10.7 k/uL (1.3-7.7); Neutrophils % (A) 86 %; Platelet Count 130 k/uL (150-450); RBC 4.16 m/uL (3.80-5.40); RDW 15.3 % (11.5-15.5); WBC 12.5 k/uL (3.8-10.6)
[2024-06-12 05:05] LABS: Glucose,Whole Blood 130 mg/dL (70-110)
[2024-06-12 05:09] LABS: INR 1.1 (<1.2); Partial Thromboplastin Time 23.7 sec (22.0-30.0); Prothrombin Time 12.3 sec (10.0-12.5)
[2024-06-12 05:17] LABS: ALT 36 U/L (4-34); AST 45 U/L (14-36); African American GFR (CKD) >90 (>60 ml/min/1.73 sqM); Albumin 3.7 g/dL (3.5-5.0); Alcohol <10 mg/dL; Alkaline Phosphatase 119 U/L (38-126); Anion Gap 6 mmol/L; Blood Urea Nitrogen 26 mg/dL (7-17); Calcium 9.9 mg/dL (8.4-10.2); Carbon Dioxide 25 mmol/L (22-30); Chloride 104 mmol/L (98-107); Glucose 141 mg/dL (74-99); Non-African American GFR(CKD) >90 (>60 ml/min/1.73 sqM); Potassium 3.9 mmol/L (3.5-5.1); Sodium 135 mmol/L (137-145); Total Bilirubin 1.6 mg/dL (0.2-1.3); Total Protein 6.5 g/dL (6.3-8.2)
[2024-06-12 05:22] LABS: Appearance,Urine Clear (Clear); Bilirubin,Urine Negative (Negative); Blood,Urine Negative (Negative); Color,Urine Yellow; Glucose,Urine (UA) Negative (Negative); Ketones,Urine Negative (Negative); Leukocyte Esterase,Urine Negative (Negative); Nitrite,Urine Negative (Negative); Protein,Urine Trace (Negative); Specific Gravity,Urine 1.024 (1.001-1.035)
[2024-06-12 05:25] LABS: NT-Pro-B-Type Natriuretic Pept 383 pg/mL
[2024-06-12 05:32] LABS: Amphetamine Screen,Urine Not Detected (NotDetected); Barbiturate Screen,Urine Not Detected (NotDetected); Benzodiazepines Screen,Urine Not Detected (NotDetected); Cocaine Screen,Urine Not Detected (NotDetected); Methadone Screen, Urine Not Detected (NotDetected); Opiate Screen,Urine Not Detected (NotDetected); Oxycodone Screen, Urine Not Detected (NotDetected); Phencyclidine Screen,Urine Not Detected (NotDetected); Tricyclic Antidepressant,Urine Not Detected (NotDetected); Urn Cannabinoid Scrn Not Detected (NotDetected)
[2024-06-12] MEDS: ACETAMINOPHEN IV (For NPO) 1,000 MG in EMPTY BAG 1 BAG IVPB STA (05:37)
[2024-06-12] MEDS: ACETAMINOPHEN TAB 325 MG TAB PO STA (05:38)
[2024-06-12 05:42] LABS: Influenza A Not Detected (Not Detectd); Influenza B Not Detected (Not Detectd); RSV Not Detected (Not Detectd)
[2024-06-12] MEDS ORDERED: LACTULOSE 200 GM/300 ML (FROM 1/2 GAL JUG) RECTAL SCH (06:00)
[2024-06-12] MEDS: LACTULOSE 20 GM/30 ML CUP PO SCH (06:06)
--- NOTE | 2024-06-12 06:08 | XR ---
EXAM: XR Chest, 1 View CLINICAL HISTORY: ITS.REASON XR Reason: altered mental status TECHNIQUE: Frontal view of the chest. COMPARISON: 01/21/24 FINDINGS: Lungs: Diffuse bilateral mixed interstitial/airspace disease. Low lung volume. No focal consolidation. Pleural space: Unremarkable. No pneumothorax. Heart: Enlarged cardiovascular silhouette. Mediastinum: Prominent mediastinum, likely tortuous thoracic aorta accentuated by low lung volume. Bones/joints: Unremarkable. No acute fracture. No significant effusion. IMPRESSION: 1. Low lung volume. 2. Diffuse edema or pneumonia. 3. Cardiomegaly
--- NOTE | 2024-06-12 06:30 | CT ---
EXAMINATION TYPE: CT brain wo con DATE OF EXAM: 06/12/2024 COMPARISON: 01/16/2024 CLINICAL INDICATION: Female, 53 years old with history of Altered mental status; PHH, CT DLP: mGycm Automated exposure control for dose reduction was used. Findings: The ventricles, basal cisterns and sulci over the convexities are within normal limits and there is n o mass effect or shift of midline structures. No abnormal density is seen throughout the brain parenchyma and there is no acute intra or extra-axia l hemorrhage. The posterior fossa including the brainstem, fourth ventricle and cerebellar pontine angles appear no rmal. Intraorbital contents appear normal and symmetric. Visualized paranasal sinuses and mastoid air cells are well aerated. The calvarium is intact. IMPRESSION: No significant abnormality seen. There is no acute bleed or mass effect. [facility], Workstation: NANDA 06/12/2024 6:28 AM
[2024-06-12] MEDS ORDERED: NALOXONE 0.4 MG/ML 1 ML VIAL IV PRN (06:33)
[2024-06-12] MEDS ORDERED: ONDANSETRON 4 MG/2 ML VIAL IVP PRN (06:33)
[2024-06-12] MEDS: FUROSEMIDE 10 MG/ML 4 ML VIAL IV STA (06:43)
[2024-06-12] MEDS: BUMETANIDE 1 MG TAB PO SCH (08:20)
[2024-06-12] MEDS ORDERED: VANCOMYCIN IV PER PHARMACY 1 EACH MISC MISCELLANE PRN (14:47)
--- NOTE | 2024-06-12 15:03 | P.CONS ---
History of Present Illness - Reason for Consult Consult date: 06/12/24 Fever headache, encephalopathy Requesting physician: Maury Brooks - Chief Complaint Mental status changes x 1 day - History of Present Illness Patient is a 53-year-old female with a past medical history significant for reflux anxiety, nonalcoholic liver disease/cirrhosis patient has been reported to the hospital for evaluation of mental status changes apparently the patient's symptoms started the day of presentation to the hospital with the patient noted to be more confused and agitated with no clear history of any fever nausea or vomiting or diarrhea is reported by the family the bedside apparently the patient did run out of her lactulose and is not very clear for how long she has been off the lactulose on presentation to the hospital patient did have a temperature of 101.2 F and did spike another fever this afternoon of 101.1 F patient been tachycardic but not hypotensive or hypoxic no need for supplemental oxygen she did have white count of 12.5 with a left shift creatinine 0.61 electrolytes are normal liver isms mildly elevated, and ammonia level of 121 UA has been negative urine drug screen has been negative influenza RSV COVID testing negative patient did have a chest x-ray low lung volumes diffuse edema or pneumonia and cardiomegaly CT of the brain no significant abnormality seen patient has been admitted to hospital no cultures were done neurology was consulted for mental status changes subsequently consulted ID for headache Lab within fever most information has been obtained from review the chart and talking the family bedside as the patient could not provide level history he responded to her name only Review of Systems Positive points has been mentioned in HPI complete review could not be obtained because of his underlying mental status Past Medical History Past Medical History: Blood Disorder, GERD/Reflux, Liver Disease Additional Past Medical History / Comment(s): PROTHROMBIN GENE MUTATION, HX BLOOD CLOT IN PORTAL VEIN X7 YEARS., HAS INTERNAL NERVE PAIN D/T THIS. HEAVY & IRREG MENSES, ANEMIA; HAD IRON INFUSIONS X2 11/28, 12/05/16. History of Any Multi-Drug Resistant Organisms: None Reported Past Surgical History: Cholecystectomy, Joint Replacement Additional Past Surgical History / Comment(s): PARTIAL MATTHEW KNEE REPLACEMENT. Past Anesthesia/Blood Transfusion Reactions: Motion Sickness, Postoperative Nausea & Vomiting (PONV) Past Psychological History: Anxiety Smoking Status: Former smoker Past Alcohol Use History: None Reported Additional Past Alcohol Use History / Comment(s): SMOKED 15 YEARS, 1 PPD, QUIT 1999. Past Drug Use History: None Reported - Past Family History Mother History Unknown: Yes Family Medical History: Blood Disorder Additional Family Medical History / Comment(s): LEIDEN FACTOR Sister(s) History Unknown: Yes Family Medical History: Blood Disorder Additional Family Medical History / Comment(s): LEIDEN FACTOR Medications and Allergies Home Medications Medication Instructions Recorded Confirmed Type Cyanocobalamin (Vitamin B-12) 1,000 mcg PO DAILY 12/17/16 06/12/24 History [Vitamin B-12] Omeprazole [PriLOSEC] 20 mg PO DAILY 12/17/16 06/12/24 History Bumetanide [BUMEX] 2 mg PO DAILY 12/05/23 06/12/24 History Fluticasone/Umeclidin/Vilanter 1 puff INHALATION RT-DAILY 12/05/23 06/12/24 History [Trelegy Ellipta 100-62.5-25] Gabapentin 300 mg PO TID 12/05/23 06/12/24 History Magnesium Oxide [Magox 400] 400 mg PO BID 12/05/23 06/12/24 History Montelukast [Singulair] 10 mg PO HS 12/05/23 06/12/24 History PARoxetine HCL [PARoxetine HCL Cr] 25 mg PO DAILY 12/05/23 06/12/24 History Rifaximin [Xifaxan] 550 mg PO BID 12/05/23 06/12/24 History Spironolactone [Aldactone] 25 mg PO DAILY 12/05/23 06/12/24 History Albuterol Inhaler [Ventolin Hfa 2 puff INHALATION RT-Q4H PRN 01/16/24 06/12/24 History Inhaler] Fexofenadine HCl [Ann Marie Allergy] 180 mg PO DAILY 01/16/24 06/12/24 History Lactulose 10 gm PO DAILY 01/16/24 06/12/24 History Vitamin E (Dl,Tocopheryl Acet) 400 unit PO DAILY 01/16/24 06/12/24 History [Vitamin E (400 Iu = 180 mg)] Aspirin EC [Ecotrin Low Dose] 81 mg PO DAILY 06/12/24 06/12/24 History Cholecalciferol [Vitamin D3 (25 25 mcg PO DAILY 06/12/24 06/12/24 History Mcg = 1000 Iu)] Ibuprofen [Motrin] 600 mg PO Q6H PRN 06/12/24 06/12/24 History Potassium Chloride [Klor-Con 10 ER] 10 meq PO BID-W/MEALS 06/12/24 06/12/24 History Semaglutide [Wegovy] 1 mg SQ CASAS 06/12/24 06/12/24 History Allergies Allergy/AdvReac Type Severity Reaction Status Date / Time No Known Allergies Allergy Verified 06/12/24 08:42 Physical Exam Vitals: Vital Signs Temp Pulse Pulse Resp BP BP Pulse Ox 06/12/24 08:49 99.3 F 94 20 135/85 94 L 06/12/24 08:31 75 18 156/68 96 06/12/24 07:43 98.4 F 103 H 20 151/73 95 06/12/24 04:35 101.2 F H 109 H 18 152/74 94 L Intake and Output 06/11/24 06/12/24 06/12/24 22:59 06:59 14:59 Output Total 2450 Balance -2450 Output: Urine 2450 Other: Weight 136.078 kg 136.078 kg GENERAL DESCRIPTION: Middle-age female lying in bed, no distress. No tachypnea or accessory muscle of respiration use. HEENT: Shows Pallor , no scleral icterus. Oral mucous membrane is dry. NECK: Trachea central, no thyromegaly. LUNGS: Unlabored breathing. Clear to auscultation anteriorly. No wheeze or crackle. HEART: S1, S2, regular rate and rhythm. No loud murmur ABDOMEN: Soft, no tenderness , guarding or rigidity, no organomegaly EXTREMITIES: No edema of feet. SKIN: No rash, no masses palpable. NEUROLOGICAL: The patient is arousable but oriented x 1 and no neck rigidity Results CBC & Chem 7: 06/12/24 04:52 06/12/24 04:52 Labs: Abnormal Lab Results - Last 24 Hours (Table) 06/12/24 06/12/24 06/12/24 Range/Units 04:52 04:52 04:52 WBC 12.5 H (3.8-10.6) k/uL Plt Count 130 L (150-450) k/uL Neutrophils # 10.7 H (1.3-7.7) k/uL Lymphocytes # 0.5 L (1.0-4.8) k/uL Sodium 135 L (137-145) mmol/L BUN 26 H (7-17) mg/dL Glucose 141 H (74-99) mg/dL POC Glucose (mg/dL) (70-110) mg/dL Total Bilirubin 1.6 H (0.2-1.3) mg/dL AST 45 H (14-36) U/L ALT 36 H (4-34) U/L Ammonia 121 H (<30) umol/L Urine Protein (Negative) 06/12/24 06/12/24 Range/Units 05:03 05:15 WBC (3.8-10.6) k/uL Plt Count (150-450) k/uL Neutrophils # (1.3-7.7) k/uL Lymphocytes # (1.0-4.8) k/uL Sodium (137-145) mmol/L BUN (7-17) mg/dL Glucose (74-99) mg/dL POC Glucose (mg/dL) 130 H (70-110) mg/dL Total Bilirubin (0.2-1.3) mg/dL AST (14-36) U/L ALT (4-34) U/L Ammonia (<30) umol/L Urine Protein Trace H (Negative) Assessment and Plan (1) AMS (altered mental status) Current Visit: Yes Status: Acute Code(s): R41.82 - ALTERED MENTAL STATUS, UNSPECIFIED SNOMED Code(s): 692987945 (2) Fever of unknown origin Current Visit: Yes Status: Acute Code(s): R50.9 - FEVER, UNSPECIFIED SNOMED Code(s): 0784426 (3) Sepsis Current Visit: No Status: Acute Code(s): A41.9 - SEPSIS, UNSPECIFIED ORGANI SM SNOMED Code(s): 10291602 Plan: 1patient with fever tachycardia elevated white count meeting criteria for SIRS/sepsis source questionably encephalitis/meningitis as no obvious focus of infection on initial evaluation as well as investigation or could be related to SBP in this patient did have a history of nonalcoholic cirrhosis and has been out of her lactulose did have hepatic encephalopathy but fever will be very uncommon so we need to rule out infectious etiology 2-I will obtain blood cultures and inflammatory markers 3-we will consult anesthesia for LP send CSF for glucose protein cell count differential and viral PCR 4-we will empirically start the patient on Rocephin vancomycin and acyclovir pending completion of the workup Family the bedside question answered We will follow on clinical condition and cultures to further adjust medication if needed Thank you for this consultation we will follow the patient along with you Dictation was produced using [employer] dictation software. please excuse any grammatical, word or spelling errors. Time with Patient: Greater than 30
[2024-06-12] MEDS: ACETAMINOPHEN TAB 325 MG TAB PO PRN (15:46)
--- NOTE | 2024-06-12 15:57 | P.PN ---
Progress Note - Text Progress Note Date: 06/12/24 Ms. Terrazas seen and evaluated at bedside. At the time of evaluation her sister was sitting in a chair. Had a detailed discussion with patient family regarding lumbar puncture procedure. As per family that she had on and off altered mental status secondary to her liver issues, and ammonia, as per family she will recover well few days later with treatment. At this time family does not want to perform lumbar puncture, they want to wait for 2 to 3 days if her altered mental status not improved then they would like to proceed for lumbar puncture at that time. Informed to the RN. Please consult anesthesia as needed in future.
[2024-06-12] MEDS: BUMETANIDE 1 MG TAB PO ONE (16:07)
[2024-06-12] MEDS: ACYCLOVIR SODIUM 900 MG in SODIUM CHLORIDE 0.9% 250 ML IVPB SCH (18:33)
[2024-06-12] MEDS ORDERED: VANCOMYCIN 2,000 MG in SODIUM CHLORIDE 0.9% 500 ML 500 ML IVPB ONE (20:00)
[2024-06-12] MEDS: MELATONIN 3 MG TABLET PO ONE (21:55)
[2024-06-12] MEDS ORDERED: ZINC OXIDE PASTE (Z-GUARD) 1 APPLIC TOPICAL PRN (22:03)
[2024-06-13] MEDS: VANCOMYCIN 2,000 MG in SODIUM CHLORIDE 0.9% 500 ML 500 ML IVPB SCH (02:11)
[2024-06-13] MEDS: VANCOMYCIN 2,000 MG in SODIUM CHLORIDE 0.9% 500 ML 500 ML IVPB ONE (02:11)
[2024-06-13] MEDS ORDERED: ALBUTEROL NEBULIZED 2.5 MG/3 ML INHALATION PRN (07:34)
--- NOTE | 2024-06-13 07:36 | P.HPIM ---
History of Present Illness H&P Date: 06/13/24 History of present illness; patient is a 53-year-old lady with past medical history significant nonalcoholic cirrhosis, GERD, hepatic vein thrombosis, status post splenorenal shunt placement who presented the ER because of altered mental status. Most of the history is obtained from patient's and EMR according to which patient woke up this morning confused. Patient was not her usual self, harm to this happens when her ammonia levels are high. Patient has not been taking her lactulose for the last few weeks. There was no complaint of any fevers at home. There was no complaint of any complaint of nausea, vomiting abdominal pain. denied patient having any recent epis ode of chest pain or shortness of breath. There was no recent complaint of any fall. Because of this altered mental status, patient brought to the ER Initial lab work done in the ER showed WBC 12.5, hemoglobin 12.3, platelet count 130, sodium 135, potassium 3.9, BUN 23, creatinine 0.61, glucose 141, bilirubin 1.6, AST 45, ALT 36, ammonia 121, UA negative for infection urine drug screen negative Influenza A not detected Influenza B not detected RSV not detected COVID-19 not detected EKG done in the ER showed heart rate of 109 , no ST segment elevation or depression seen, no T-wave inversions seen. Chest x-ray done in the ER showed diffuse edema or pneumonia CT head done showed no acute intracranial process ER, patient was found to have a fever of 101.2, was tachycardic as well. Patient admitted to internal medicine service REVIEW OF SYSTEMS: Review of system cannot be obtained as patient is lethargic, arousable but unable to obtain review of system PHYSICAL EXAMINATION: GENERAL: The patient is lethargic, obese HEENT: Pupils are round and equally reacting to light. EOMI. No scleral icterus. No conjunctival pallor. Normocephalic, atraumatic. No pharyngeal erythema. No thyromegaly. CARDIOVASCULAR: S1 and S2 present. No murmurs, rubs, or gallops. PULMONARY: Chest is clear to auscultation, no wheezing or crackles. ABDOMEN: Soft, nontender, nondistended, normoactive bowel sounds. No palpable organomegaly. MUSCULOSKELETAL: No joint swelling or deformity. EXTREMITIES: No cyanosis, clubbing,. Bilateral lower extremity lymphedema seen NEUROLOGICAL: Gross neurological examination did not reveal any focal deficits. SKIN: No rashes. Assessment and plan Hepatic encephalopathy Fever of unknown origin History of portal vein thrombosis and also history of splenorenal shunt placement Prothrombin gene mutation Anxiety Prior history of smoking Monitor vital signs Monitor CBC Monitor CMP Continue telemetry monitoring Ordered blood cultures Ordered see CRP, ESR, Pro-Kevin Start Rocephin and vancomycin, acyclovir Consulted anesthesia for LP Consulted neurology Continue lactulose Consult ID Labs and medication were reviewed.. Continue same treatment. Continue with s ymptomatic treatment. Resume home medication. Monitor labs and vitals. DVT and GI prophylaxis. Further recommendations as per clinical course of the patient Dictation was produced using [employer] dictation software. please excuse any grammatical, word or spelling errors. 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 HEAVY & IRREG MENSES, ANEMIA; HAD IRON INFUSIONS X2 11/28, 12/05/16. History of Any Multi-Drug Resistant Organisms: None Reported Past Surgical History: Cholecystectomy, Joint Replacement Additional Past Surgical History / Comment(s): PARTIAL MATTHEW KNEE REPLACEMENT. Past Anesthesia/Blood Transfusion Reactions: Motion Sickness, Postoperative Nausea & Vomiting (PONV) Past Psychological History: Anxiety Smoking Status: Former smoker Past Alcohol Use History: None Reported Additional Past Alcohol Use History / Comment(s): SMOKED 15 YEARS, 1 PPD, QUIT 1999. Past Drug Use History: None Reported - Past Family History Mother History Unknown: Yes Family Medical History: Blood Disorder Additional Family Medical History / Comment(s): LEIDEN FACTOR Sister(s) History Unknown: Yes Family Medical History: Blood Disorder Additional Family Medical History / Comment(s): LEIDEN FACTOR Medications and Allergies Home Medications Medication Instructions Recorded Confirmed Type Cyanocobalamin (Vitamin B-12) 1,000 mcg PO DAILY 12/17/16 06/12/24 History [Vitamin B-12] Omeprazole [PriLOSEC] 20 mg PO DAILY 12/17/16 06/12/24 History Bumetanide [BUMEX] 2 mg PO DAILY 12/05/23 06/12/24 History Fluticasone/Umeclidin/Vilanter 1 puff INHALATION RT-DAILY 12/05/23 06/12/24 History [Trelegy Ellipta 100-62.5-25] Gabapentin 300 mg PO TID 12/05/23 06/12/24 History Magnesium Oxide [Magox 400] 400 mg PO BID 12/05/23 06/12/24 History Montelukast [Singulair] 10 mg PO HS 12/05/23 06/12/24 History PARoxetine HCL [PARoxetine HCL Cr] 25 mg PO DAILY 12/05/23 06/12/24 History Rifaximin [Xifaxan] 550 mg PO BID 12/05/23 06/12/24 History Spironolactone [Aldactone] 25 mg PO DAILY 12/05/23 06/12/24 History Albuterol Inhaler [Ventolin Hfa 2 puff INHALATION RT-Q4H PRN 01/16/24 06/12/24 History Inhaler] Fexofenadine HCl [Ann Marie Allergy] 180 mg PO DAILY 01/16/24 06/12/24 History Lactulose 10 gm PO DAILY 01/16/24 06/12/24 History Vitamin E (Dl,Tocopheryl Acet) 400 unit PO DAILY 01/16/24 06/12/24 History [Vitamin E (400 Iu = 180 mg)] Aspirin EC [Ecotrin Low Dose] 81 mg PO DAILY 06/12/24 06/12/24 History Cholecalciferol [Vitamin D3 (25 25 mcg PO DAILY 06/12/24 06/12/24 History Mcg = 1000 Iu)] Ibuprofen [Motrin] 600 mg PO Q6H PRN 06/12/24 06/12/24 History Potassium Chloride [Klor-Con 10 ER] 10 meq PO BID-W/MEALS 06/12/24 06/12/24 History Semaglutide [Wegovy] 1 mg SQ CASAS 06/12/24 06/12/24 History Allergies Allergy/AdvReac Type Severity Reaction Status Date / Time No Known Allergies Allergy Verified 06/12/24 08:42 Physical Exam Vitals: Vital Signs Temp Pulse Pulse Resp BP BP Pulse Ox 06/13/24 01:51 98.8 F 87 17 148/83 97 06/12/24 20:00 98.5 F 67 18 186/73 94 L 06/12/24 14:44 101.1 F H 104 H 20 118/77 97 06/12/24 08:49 99.3 F 94 20 135/85 94 L 06/12/24 08:31 75 18 156/68 96 06/12/24 07:43 98.4 F 103 H 20 151/73 95 Intake and Output 06/12/24 06/13/24 06/13/24 22:59 06:59 14:59 Output Total 750 Balance -750 Output: Urine 750 Other: # Voids 1 # Bowel Movements 1 1 Results CBC & Chem 7: 06/12/24 04:52 06/12/24 04:52 Thrombosis Risk Factor Assmnt - Choose All That Apply Any of the Below Risk Factors Present?: Yes Each Factor Represents 1 point: Age 41-60 years, Obesity (BMI >25), Sepsis (< 1month) Other Risk Factors: Yes Each Risk Factor Represents 3 Points: History of DVT/PE Other congenital or acquired thrombophilia - If yes, enter type in comment: No Thrombosis Risk Factor Assessment Total Risk Factor Score: 6 Thrombosis Risk Factor Assessment Level: High Risk
[2024-06-13] MEDS ORDERED: VANCOMYCIN 2,000 MG in SODIUM CHLORIDE 0.9% 500 ML 500 ML IVPB SCH (08:00)
[2024-06-13] MEDS: ASPIRIN 81 MG PO SCH (08:40)
[2024-06-13] MEDS: RIFAXIMIN 550 MG TAB (PTS OWN) PO SCH (08:41)
[2024-06-13] MEDS: CYANOCOBALAMIN 500 MCG TAB PO SCH (09:37)
[2024-06-13] MEDS: BUMETANIDE 1 MG TAB PO SCH (09:38)
[2024-06-13] MEDS: CHOLECALCIFEROL 25 MCG (1000 IU) TABLET PO SCH (09:38)
[2024-06-13 09:50] LABS: Basophils # (A) 0.05 X 10*3/uL (0.00-0.10); Basophils % (A) 0.3 %; Eosinophils # (A) 0 X 10*3/uL (0.04-0.35); Eosinophils % (A) 0 %; HCT 36.1 % (37.2-46.3); HGB 11.6 g/dL (12.0-15.0); Lymphocytes # (A) 0.59 X 10*3/uL (0.90-5.00); Lymphocytes % (A) 3.5 %; MCH 29.7 pg (27.0-32.0); MCHC 32.1 g/dL (32.0-37.0); MCV 92.6 FL (80.0-97.0); Mean Platelet Volume 11.7 FL (9.5-12.2); Monocytes # (A) 1.78 X 10*3/uL (0.20-1.00); Monocytes % (A) 10.7 %; NRBC Per 100 WBC 0 X 10*3/uL (0.00-0.01); Neutrophils # (A) 14.14 X 10*3/uL (1.80-7.70); Platelet Count 140 X 10*3/uL (140-440); RDW 15.3 % (11.5-14.5); WBC 16.64 X 10*3/uL (4.50-10.00)
[2024-06-13 10:13] LABS: ALT 45 U/L (8-44); AST 70 U/L (13-35); Albumin 3.6 g/dL (3.8-4.9); Albumin/Globulin Ratio 1.44 Ratio (1.60-3.17); Alkaline Phosphatase 127 U/L (41-126); BUN/Creat Ratio 23.12 Ratio (12.00-20.00); Blood Urea Nitrogen 18.5 mg/dL (9.0-27.0); Calcium 9.7 mg/dL (8.7-10.3); Carbon Dioxide 22.5 mmol/L (21.6-31.8); Chloride 106 mmol/L (96-109); Globulin 2.5 g/dL (1.6-3.3); Glucose 103 mg/dL (70-110); Sodium 142 mmol/L (135-145); Total Bilirubin 2.3 mg/dL (0.3-1.2); Total Protein 6.1 g/dL (6.2-8.2)
--- NOTE | 2024-06-13 12:58 | P.PN ---
Subjective Progress Note Date: 06/13/24 Principal diagnosis: Reason for follow-up is fever Patient is a 53-year-old female with a past medical history significant for reflux anxiety, nonalcoholic liver disease/cirrhosis patient has been reported to the hospital for evaluation of mental status changes and also have a fever with initial workup negative did have elevated ammonia level LP was refused by the family. On today's evaluation that is 06/13/2024, Patient remains to be febrile with a temperature of 101.4 F this morning patient remains to be lethargic, no vomiting diarrhea and the changes reported. Patient did have a white count of 16.64 with a left shift, creatinine 0.8 liver enzymes elevated Objective - Vital Signs Vital signs: Vital Signs Temp 101.4 F H 06/13/24 09:36 Pulse 98 06/13/24 09:36 Resp 22 06/13/24 09:36 BP 166/90 06/13/24 06:55 Pulse Ox 91 L 06/13/24 06:55 FiO2 Intake & Output 06/12/24 06/13/24 06/13/24 18:59 06:59 18:59 Output Total 3200 Balance -3200 Weight 136.078 kg Output: Urine 3200 Other: Voiding Method External Catheter # Voids 1 # Bowel Movements 4 1 - Exam GENERAL DESCRIPTION: Middle aged female lying in bed in no distress RESPIRATORY SYSTEM: Unlabored breathing , decreased breath sounds at bases HEART: S1 S2 regular rate and rhythm , ABDOMEN: Soft , no tenderness EXTREMITIES: No edema feet - Labs CBC & Chem 7: 06/15/24 03:38 06/15/24 03:38 Labs: Abnormal Lab Results - Last 24 Hours (Table) 06/13/24 06/13/24 Range/Units 05:45 05:45 WBC 16.64 H (4.50-10.00) X 10*3/uL RBC 3.90 L (4.10-5.20) X 10*6/uL Hgb 11.6 L (12.0-15.0) g/dL Hct 36.1 L (37.2-46.3) % RDW 15.3 H (11.5-14.5) % Immature Gran # 0.08 H (0.00-0.04) X 10*3/uL Neutrophils # 14.14 H (1.80-7.70) X 10*3/uL Lymphocytes # 0.59 L (0.90-5.00) X 10*3/uL Monocytes # 1.78 H (0.20-1.00) X 10*3/uL Eosinophils # 0 L (0.04-0.35) X 10*3/uL Anion Gap 13.50 H (4.00-12.00) mmol/L BUN/Creatinine Ratio 23.12 H (12.00-20.00) Ratio Total Bilirubin 2.3 H (0.3-1.2) mg/dL AST 70 H (13-35) U/L ALT 45 H (8-44) U/L Alkaline Phosphatase 127 H (41-126) U/L Total Protein 6.1 L (6.2-8.2) g/dL Albumin 3.6 L (3.8-4.9) g/dL Albumin/Globulin Ratio 1.44 L (1.60-3.17) Ratio Assessment and Plan (1) AMS (altered mental status) Current Visit: Yes Status: Acute Code(s): R41.82 - ALTERED MENTAL STATUS, UNSPECIFIED SNOMED Code(s): 923220987 (2) Fever of unknown origin Current Visit: Yes Status: Acute Code(s): R50.9 - FEVER, UNSPECIFIED SNOMED Code(s): 2762786 (3) Sepsis Current Visit: No Status: Acute Code(s): A41.9 - SEPSIS, UNSPECIFIED ORGANISM SNOMED Code(s): 33177326 Plan: 1patient with fever tachycardia elevated white count meeting criteria for SIRS/sepsis source questionably encephalitis/meningitis as no obvious focus of infection on initial evaluation as well as investigation or could be related to SBP in this patient did have a history of nonalcoholic cirrhosis and has been out of her lactulose did have hepatic encephalopathy but fever will be very uncommon so we need to rule out infectious etiology 2-unfortunately the patient family has refused LP that will complicate management of her condition without clear focus for this infection 3with the patient for not responding to initial antibiotic therapy and worsening of the liver enzymes question abdominal source we will discontinue currently antibiotic therapy start the patient on Zosyn obtain ultrasound of the abdomen Dictation was produced using [employer] dictation software. please excuse any grammatical, word or spelling errors. Time with Patient: Less than 30
--- NOTE | 2024-06-13 14:09 | US ---
EXAMINATION TYPE: US abdomen complete DATE OF EXAM: 06/13/2024 COMPARISON: US Nov 2023 CLINICAL INDICATION: Female, 53 years old with history of Fever; H/O cirrhosis, fever TECHNIQUE: Grayscale and color Doppler imaging of the abdomen was performed. FINDINGS: EXAM MEASUREMENTS: Liver Length: 13.1 cm CBD: 0.7 cm, color Doppler imaging was utilized to isolate the common bile duct for measurement. Spleen: 11.7 cm Right Kidney: 11.3 x 5.0 x 5.3 cm Left Kidney: 10.5 x 5.0 x 5.2 cm RESEARCH AND DEVELOPMENT SCIENTIST NOTES: *Severely, morbidly obese pt, difficult to scan Pancreas: Obscured by bowel gas Liver: Limited views appeared wnl. Gallbladder: Surgically absent Evidence for sonographic Bridges's sign: No CBD: wnl Spleen: Appeared enlarged in transverse view Right Kidney: wnl, No hydronephrosis, calculi or masses seen, lower pole gassed out Left Kidney: Limited views show no evidence of hydro Upper IVC: wnl Abd Aorta: Obscured by overlying bowel gas IMPRESSION: 1. Limited by the patient's body habitus. 2. Pancreas obscured by bowel gas. 3. Surgical absence of the gallbladder but no biliary ductal dilatation. 4. No acute process within the visualized abdomen. [facility], , 06/13/2024 2:07 PM
[2024-06-13] MEDS ORDERED: LACTULOSE 20 GM/30 ML CUP PO PRN (16:07)
[2024-06-13] MEDS: ACETAMINOPHEN IV (For NPO) 1,000 MG in EMPTY BAG 1 BAG IVPB PRN (16:19)
[2024-06-13] MEDS: PIPERACILLIN-TAZOBACTAM 3.375 GM in SODIUM CHLORIDE 0.9% 100 ML IVPB SCH (16:20)
[2024-06-14 04:03] LABS: ALT 34 U/L (4-34); AST 37 U/L (14-36); African American GFR (CKD) >90 (>60 ml/min/1.73 sqM); Albumin 2.6 g/dL (3.5-5.0); Alkaline Phosphatase 95 U/L (38-126); Anion Gap 4 mmol/L; Blood Urea Nitrogen 17 mg/dL (7-17); Calcium 8.9 mg/dL (8.4-10.2); Carbon Dioxide 28 mmol/L (22-30); Chloride 104 mmol/L (98-107); Globulin 2.5 g/dL; Glucose 83 mg/dL (74-99); Non-African American GFR(CKD) >90 (>60 ml/min/1.73 sqM); Sodium 136 mmol/L (137-145); Total Bilirubin 1.9 mg/dL (0.2-1.3); Total Protein 5.1 g/dL (6.3-8.2)
[2024-06-14 05:04] LABS: Potassium 2.7 mmol/L (3.5-5.1)
[2024-06-14] MEDS ORDERED: Potassium Replacement Protocol 1 EACH MISC MISCELLANE PRN (05:56)
[2024-06-14] MEDS: POTASSIUM BICARBONATE/CIT AC 20 MEQ TABLET.EFF NG-TUBE SCH (06:47)
--- NOTE | 2024-06-14 09:54 | P.CNNES ---
History of Present Illness Consult date: 06/12/24 Requesting physician: Gianfranco Bland Reason for Consult: AMS, likely hepatic encephalopathy History of Present Illness: This is a telemedicine neurology consultation performed today on 06/12/2024, in collaboration with Patricia Quintero. Patient is a 53-year-old female came to the hospital by ambulance today at 4:33 AM for altered mental status. Patient not able to provide appropriate history. Patient's was present by the bedside, who mentions that she came to the hospital because she was "not feeling too awake". He mentions that patient went to bed last night at 9 PM in usual state of health. 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 He believes that her ammonia level may be up. Patient has history of liver disease for 12 years, which he attributes to alpha 1 antitrypsin deficiency. Patient normally is fully functioning. Patient has been hospitalized 4-5 times in the last 3 years. Patient has no prior history of headaches, although she complained of some frontal headaches in the forehead. She also vomited once before she came into the hospital. She is pointing to the forehead region for her headache. She has lot of headache and light is bothering. As per EMS flow sheet, when they arrived, patient's was stating that patient has history of liver issues including cirrhosis. Patient was off normal mentation this imaging but when awoke to let dog out at 1 in the morning, patient was in her chair and altered. Patient at that time was alert and oriented 1. Her vitals at the scene was blood glucose 162, blood pressure 170/84, pulse rate 113, respiration 18 and saturation 94%. Repeat blood pressure 134/85. Vital signs on arrival blood pressure 152/74 pulse rate 109, temperature 101.2. Blood test shows WBC 12.5 hemoglobin 12.3, platelets 130. PT/PTT normal. Sodium and the event sales representative 0.9, AST is 45, ALT 36. Ammonia 121. UA is negative urine drug screen and blood alcohol level negative. Influenza, RSV and coronavirus PCR negative. Patient had a normal B12 level of 1800 on 01/18/2024. Folate 6.9. Home medications include B12 1000 mg orally daily, Aldactone, xiphan gabapentin 300 mg 3 times a day, Paxil 25 mg, vitamin D, lactulose 20 g 3 times a day Keflex, potassium, other doses of lactulose, Lasix. Patient has been seen by myself on 01/17/2024 for metabolic/hepatic encephalopathy. Patient does have history of hepatic cirrhosis, anemia, cellulitis obesity, NAFLD, history of splenorenal shunt patient had an EEG, which was abnormal routine EEG. Background slowing is suggestive of mild encephalopathy. No focal slowing or epileptiform discharges or seizure was seen. No history of tobacco, although she quit 30 years ago. Patient was not never a heavy smoker. No alcohol use. Last episode of hepatic encephalopathy was in of 2023. Patient has been to [facility] and they turned her down. Review of Systems Other review of systems mentioned in the HPI. As reported by patient's . ROS unobtainable: due to mental status Past Medical History Past Medical History: Blood Disorder, GERD/Reflux, Liver Disease Additional Past Medical History / Comment(s): PROTHROMBIN GENE MUTATION, HX BLOOD CLOT IN PORTAL VEIN X7 YEARS., HAS INTERNAL NERVE PAIN D/T THIS. HEAVY & IRREG MENSES, ANEMIA; HAD IRON INFUSIONS X2 11/28, 12/05/16. History of Any Multi-Drug Resistant Organisms: None Reported Past Surgical History: Cholecystectomy, Joint Replacement Additional Past Surgical History / Comment(s): PARTIAL MATTHEW KNEE REPLACEMENT. Past Anesthesia/Blood Transfusion Reactions: Motion Sickness, Postoperative Nausea & Vomiting (PONV) Past Psychological History: Anxiety Smoking Status: Former smoker Past Alcohol Use History: None Reported Past Drug Use History: None Reported - Past Family History Mother History Unknown: Yes Family Medical History: Blood Disorder Additional Family Medical History / Comment(s): LEIDEN FACTOR Sister(s) History Unknown: Yes Family Medical History: Blood Disorder Additional Family Medical History / Comment(s): LEIDEN FACTOR Medications and Allergies Home Medications Medication Instructions Recorded Confirmed Type Cyanocobalamin (Vitamin B-12) 1,000 mcg PO DAILY 12/17/16 06/12/24 History [Vitamin B-12] Omeprazole [PriLOSEC] 20 mg PO DAILY 12/17/16 06/12/24 History Bumetanide [BUMEX] 2 mg PO DAILY 12/05/23 06/12/24 History Fluticasone/Umeclidin/Vilanter 1 puff INHALATION RT-DAILY 12/05/23 06/12/24 History [Trelegy Ellipta 100-62.5-25] Gabapentin 300 mg PO TID 12/05/23 06/12/24 History Magnesium Oxide [Magox 400] 400 mg PO BID 12/05/23 06/12/24 History Montelukast [Singulair] 10 mg PO HS 12/05/23 06/12/24 History PARoxetine HCL [PARoxetine HCL Cr] 25 mg PO DAILY 12/05/23 06/12/24 History Rifaximin [Xifaxan] 550 mg PO BID 12/05/23 06/12/24 History Spironolactone [Aldactone] 25 mg PO DAILY 12/05/23 06/12/24 History Albuterol Inhaler [Ventolin Hfa 2 puff INHALATION RT-Q4H PRN 01/16/24 06/12/24 History Inhaler] Fexofenadine HCl [Ann Marie Allergy] 180 mg PO DAILY 01/16/24 06/12/24 History Lactulose 10 gm PO DAILY 01/16/24 06/12/24 History Vitamin E (Dl,Tocopheryl Acet) 400 unit PO DAILY 01/16/24 06/12/24 History [Vitamin E (400 Iu = 180 mg)] Aspirin EC [Ecotrin Low Dose] 81 mg PO DAILY 06/12/24 06/12/24 History Cholecalciferol [Vitamin D3 (25 25 mcg PO DAILY 06/12/24 06/12/24 History Mcg = 1000 Iu)] Ibuprofen [Motrin] 600 mg PO Q6H PRN 06/12/24 06/12/24 History Potassium Chloride [Klor-Con 10 ER] 10 meq PO BID-W/MEALS 06/12/24 06/12/24 History Semaglutide [Wegovy] 1 mg SQ CASAS 06/12/24 06/12/24 History Allergies Allergy/AdvReac Type Severity Reaction Status Date / Time No Known Allergies Allergy Verified 06/12/24 08:42 Physical Examination - Vital Signs Vital Signs: Vital Signs Temp Pulse Resp BP Pulse Ox 06/12/24 07:43 98.4 F 103 H 20 151/73 95 06/12/24 04:35 101.2 F H 109 H 18 152/74 94 L Intake and Output 06/11/24 06/12/24 06/12/24 22:59 06:59 14:59 Other: Weight 136.078 kg Patient is a middle aged female, who is obviously encephalopathic. She is very groggy, somnolent, starts snoring while patient being examined. Patient knows her full name and states her date of is [birth year] but then she said it was 1970. The current year is 07/21/1936 and the current city that she is in his 07/21/1936. She could not tell what building she is in and believes is not in the hospital. Speech and language functions are normal. Patient can name and repeat very well. No aphasia or dysarthria. Attention, concentration and fund of knowledge are all very limited. On cranial nerve examination, pupils are equal, round and reacting to light, visual cerrato are full on confrontation, with no neglect on double simultaneous stimulation. Extraocular muscles are intact with no nystagmus. Face is symme tric, tongue protrudes to the midline. Palatal elevation and sensation normal, hearing and shoulder shrug normal, facial sensation normal. No neck rigidity. On muscle strength testing, there is no pronator drift and the strength is normal in arms and legs distally and proximally, except hip flexion which is about 3+ right, 4 left. Patient did not cooperate well with the overall examination. Deep tendon reflexes are symmetric 3 at the biceps, 2 at the knees and plantars are probably downgoing bilaterally. Sensory to touch is equal with no neglect on double simultaneous stimulation. Cerebellar function showed no ataxia for [id number] testing. No dysdiadochokinesia. No ataxia for fveo-ti-quqe testing on either side. Tone and bulk of muscles normal. Patient has some flapping tremor of outstretched hands. Gait deferred.. On general examination, there is no carotid bruit or murmur, S1-S2 audible. Chest is clear on consultation. Abdomen is soft nontender. No organomegaly, bowel sounds present. Peripheral pulses are present. No peripheral edema. Results - Laboratory Findings CBC and BMP: 06/13/24 05:45 06/14/24 03:05 Abnormal Lab Findings: Abnormal Labs 06/12/24 06/12/24 06/12/24 04:52 04:52 04:52 WBC 12.5 H Plt Count 130 L Neutrophils # 10.7 H Lymphocytes # 0.5 L Sodium 135 L BUN 26 H Glucose 141 H POC Glucose (mg/dL) Total Bilirubin 1.6 H AST 45 H ALT 36 H Ammonia 121 H Urine Protein 06/12/24 06/12/24 05:03 05:15 WBC Plt Count Neutrophils # Lymphocytes # Sodium BUN Glucose POC Glucose (mg/dL) 130 H Total Bilirubin AST ALT Ammonia Urine Protein Trace H Assessment and Plan Assessment: * Altered mental status, likely due to acute hepatic encephalopathy. Patient's ammonia level 121 on admission. * High fever, headache, leukocytosis, altered mental status, unclear cause. Rule out septic encephalopathy. Rule out intracranial infectious process. * Hepatic cirrhosis * Obesity * History of NAFLD * History of splenorenal shunt. Plan: * Continue lactulose. * Treatment of hepatic encephalopathy as per IM. * Patient is complaining of headache, has high fever and hepatic encephalopathy. We will consult infectious disease. Her neck is supple at this time. * CT head showed no acute process. Paranasal sinuses are mostly clear. * Patient's influenza screen, RSV and coronavirus PCR negative. * Neurology will follow clinically. Thank you for the consult.
[2024-06-14 10:21] LABS: Basophils # (A) 0.04 X 10*3/uL (0.00-0.10); Basophils % (A) 0.4 %; Eosinophils # (A) 0.18 X 10*3/uL (0.04-0.35); Eosinophils % (A) 1.6 %; HCT 32.7 % (37.2-46.3); HGB 10.9 g/dL (12.0-15.0); Lymphocytes # (A) 1.04 X 10*3/uL (0.90-5.00); Lymphocytes % (A) 9.3 %; MCH 30.5 pg (27.0-32.0); MCHC 33.3 g/dL (32.0-37.0); MCV 91.6 FL (80.0-97.0); Mean Platelet Volume 11.7 FL (9.5-12.2); Monocytes # (A) 1.74 X 10*3/uL (0.20-1.00); Monocytes % (A) 15.6 %; NRBC Per 100 WBC 0 X 10*3/uL (0.00-0.01); Neutrophils % (A) 72.7 %; Platelet Count 132 X 10*3/uL (140-440); RBC 3.57 X 10*6/uL (4.10-5.20); RDW 15.4 % (11.5-14.5); WBC 11.14 X 10*3/uL (4.50-10.00)
[2024-06-14] MEDS: GABAPENTIN 100 MG CAP PO SCH (12:39)
[2024-06-14] MEDS: PANTOPRAZOLE 40 MG TABLET PO SCH (12:39)
[2024-06-14] MEDS: LACTULOSE 20 GM/30 ML CUP PO SCH (12:39)
[2024-06-14] MEDS: PARoxetine 20 MG TAB PO SCH (12:39)
[2024-06-14] MEDS: SPIRONOLACTONE 25 MG TAB PO SCH (12:39)
--- NOTE | 2024-06-14 14:33 | P.PN ---
Subjective Progress Note Date: 06/14/24 Interval History: History of present illness; patient is a 53-year-old lady with past medical history significant nonalcoholic cirrhosis, GERD, hepatic vein thrombosis, status post splenorenal shunt placement who presented the ER because of altered mental status. Most of the history is obtained from patient's and EMR according to which patient woke up this morning confused. Patient was not her usual self, harm to this happens when her ammonia levels are high. Patient has not been taking her lactulose for the last few weeks. There was no complaint of any fevers at home. There was no complaint of any complaint of nausea, vomiting abdominal pain. denied patient having any recent episode of chest pain or shortness of breath. There was no recent complaint of any fall. Because of this altered mental status, patient brought to the ER Initial lab work done in the ER showed WBC 12.5, hemoglobin 12.3, platelet count 130, sodium 135, potassium 3.9, BUN 23, creatinine 0.61, glucose 141, bilirubin 1.6, AST 45, ALT 36, ammonia 121, UA negative for infection urine drug screen negative Influenza A not detected Influenza B not detected RSV not detected COVID-19 not detected EKG done in the ER showed heart rate of 109 , no ST segment elevation or depression seen, no T-wave inversions seen. Chest x-ray done in the ER showed diffuse edema or pneumonia CT head done showed no acute intracranial process ER, patient was found to have a fever of 101.2, was tachycardic as well. 06/14--patient was seen and examined today. at bedside. Patient alert oriented x 4. Mentation is better. Patient reported bowel movement. Patient remained afebrile since yesterday. Heart rate 86, respiratory rate 19, blood pressure 141/84, saturating 94% on 2 L. WBCs 11.1, hemoglobin 10.9, platelet 132. Sodium 136 potassium 2.7, BUN 17 creatinine 0.60. Total bilirubin 1.9, do wntrending, AST 37 ALT 34 alkaline phosphatase 95. Ammonia yesterday came down to 24 from 121. Blood culture negative so far. Infectious disease following, currently on Zosyn. Was initially on broad-spectrum antibiotics. Family declined LP. Assessment and plan: Hepatic encephalopathy: Resolved Fevers: Resolved History of portal vein thrombosis History of splenorenal shunt placement Prothrombin gene mutation Anxiety Prior history of smoking Monitor vitals and labs Blood culture negative so far Procalcitonin negative Initially received vancomycin Rocephin and acyclovir, now de-escalated to Zosyn Anesthesia consulted for LPpatient declined Neurology consulted Continue lactulose rifaximin ID consulted and following. DVT prophylaxis: SCD Monitor vital signs and labs Labs and medication were reviewed. Continue same treatment. Further recommendations as per clinical course of the patient PHYSICAL EXAMINATION: GENERAL: The patient is A&O x3, NAD HEENT: EOMI, Sclerae anicteric, Moist Mucous membranes Neck: Supple, Non tender, No JVD PULMONARY: Equal breath souds B/L, No wheezing, No crackles. CARDIOVASCULAR: S1, S2 present. No murmurs, rubs, or gallops. ABDOMEN: Soft, nontender, nondistended, normoactive bowel sounds. No guarding or rebound tenderness. MUSCULOSKELETAL: No edema, No cyanosis. No clubbing. Normal ROM. Intact peripheral pulses. NEUROLOGICAL: CN 2-12 grossly intact. No FND Skin: No Rash REVIEW OF SYSTEMS: CONSTITUTIONAL: No fever or chills. CARDIOVASCULAR: No chest pain, palpitations or syncope. PULMONARY: No shortness of breath, no cough, sore throat. GASTROINTESTINAL: No nausea, vomiting, diarrhea, abdominal pain. : No Dysuria, urgency, frequency. Extremities: No edema. NEUROLOGICAL: No headaches, no weakness, or numbness Dictation was produced using G[employer] dictation software. please excuse any grammatical, word or spelling errors. Objective - Vital Signs Vital signs: Vital Signs Temp 98.3 F 06/14/24 08:00 Pulse 86 06/14/24 08:00 Resp 20 06/14/24 11:29 BP 141/84 06/14/24 08:00 Pulse Ox 94 L 06/14/24 08:00 FiO2 Intake & Output 06/13/24 06/14/24 06/14/24 18:59 06:59 18:59 Intake Total 450 200 Output Total 400 Balance 450 -200 Intake: Intake, IV Titration 450 Amount ACETAMINOPHEN IV (For NPO 100 ) 1,000 mg In Empty Bag 1 bag @ 400 mls/hr IVPB Q6HR PRN Rx#:[id number] Acyclovir Sodium 900 mg 250 In Sodium Chloride 0.9% 250 ml @ 270 mls/hr IVPB Q8HR [facility] Rx#:[id number] Piperacillin-Tazobactam 3 100 .375 gm In Sodium Chloride 0.9% 100 ml @ 25 mls/hr IVPB Q8HR [facility] Rx# :[id number] Oral 200 Output: Urine 400 Other: Voiding Method External Catheter # Voids 2 1 - Labs CBC & Chem 7: 06/14/24 03:05 06/14/24 03:05 Labs: Abnormal Lab Results - Last 24 Hours (Table) 06/14/24 06/14/24 Range/Units 03:05 03:05 WBC 11.14 H (4.50-10.00) X 10*3/uL RBC 3.57 L (4.10-5.20) X 10*6/uL Hgb 10.9 L (12.0-15.0) g/dL Hct 32.7 L (37.2-46.3) % RDW 15.4 H (11.5-14.5) % Plt Count 132 L (140-440) X 10*3/uL Neutrophils # 8.10 H (1.80-7.70) X 10*3/uL Monocytes # 1.74 H (0.20-1.00) X 10*3/uL Sodium 136 L (137-145) mmol/L Potassium 2.7 L* (3.5-5.1) mmol/L Total Bilirubin 1.9 H (0.2-1.3) mg/dL AST 37 H (14-36) U/L Total Protein 5.1 L (6.3-8.2) g/dL Albumin 2.6 L (3.5-5.0) g/dL Microbiology - Last 24 Hours (Table) 06/13/24 05:45 Blood Culture - Preliminary Blood
[2024-06-14] MEDS: SYMBICORT 160-4.5 MCG INHALER INHALATION SCH (21:25)
[2024-06-15] MEDS ORDERED: NON FORMULARY DRUG (Fluticasone/Umeclidin/Vilanter [Trelegy Ellipta 100-62.5-25] 1 EACH Bl INHALATION SCH (08:00)
[2024-06-15 08:02] VITALS: BP 127/73; PULSE 76; RESP 20; TEMP 97.9
[2024-06-15 08:27] LABS: Basophils # (A) 0.05 X 10*3/uL (0.00-0.10); Basophils % (A) 0.7 %; Eosinophils # (A) 0.41 X 10*3/uL (0.04-0.35); Eosinophils % (A) 6.1 %; HCT 33.7 % (37.2-46.3); HGB 10.8 g/dL (12.0-15.0); Lymphocytes # (A) 1.21 X 10*3/uL (0.90-5.00); Lymphocytes % (A) 17.9 %; MCH 29.8 pg (27.0-32.0); MCV 92.8 FL (80.0-97.0); Monocytes # (A) 1.56 X 10*3/uL (0.20-1.00); NRBC Per 100 WBC 0 X 10*3/uL (0.00-0.01); Neutrophils # (A) 3.52 X 10*3/uL (1.80-7.70); Platelet Count 157 X 10*3/uL (140-440); RBC 3.63 X 10*6/uL (4.10-5.20); RDW 15.3 % (11.5-14.5); WBC 6.77 X 10*3/uL (4.50-10.00)
[2024-06-15 08:33] LABS: Magnesium 1.2 mg/dL (1.5-2.4)
[2024-06-15 08:47] LABS: ALT 33 U/L (8-44); AST 31 U/L (13-35); Albumin 3.2 g/dL (3.8-4.9); Albumin/Globulin Ratio 1.52 Ratio (1.60-3.17); Alkaline Phosphatase 102 U/L (41-126); Blood Urea Nitrogen 17.6 mg/dL (9.0-27.0); Calcium 8.5 mg/dL (8.7-10.3); Carbon Dioxide 25.9 mmol/L (21.6-31.8); Chloride 106 mmol/L (96-109); Globulin 2.1 g/dL (1.6-3.3); Glucose 85 mg/dL (70-110); Potassium 3.5 mmol/L (3.5-5.5); Sodium 143 mmol/L (135-145); Total Bilirubin 1.2 mg/dL (0.3-1.2); Total Protein 5.3 g/dL (6.2-8.2)
[2024-06-15] MEDS: TIOTROPIUM 2.5 MCG INHALER INHALATION SCH (08:47)
[2024-06-15] MEDS ORDERED: Magnesium Replacement Protocol 1 EACH MISC MISCELLANE PRN ×2 (09:50→10:42)
[2024-06-15] MEDS ORDERED: Potassium Replacement Protocol 1 EACH MISC MISCELLANE PRN (10:43)
[2024-06-15] MEDS: POTASSIUM CHLORIDE ER 20 MEQ TAB.ER PO SCH (11:14)
[2024-06-15] MEDS: MAGNESIUM SULFATE-D5W PMX 1 GM in DEXTROSE/WATER 1 100ML.BAG IVPB SCH (11:15)
--- NOTE | 2024-06-15 12:36 | P.PN ---
Subjective Progress Note Date: 06/14/24 Principal diagnosis: Reason for follow-up is fever Patient is a 53-year-old female with a past medical history significant for reflux anxiety, nonalcoholic liver disease/cirrhosis patient has been reported to the hospital for evaluation of mental status changes and also have a fever with initial workup negative did have elevated ammonia level LP was refused by the family. On today's evaluation that is 06/14/2024, patient did have resolution of her fever and has been afebrile this morning, patient is more awake and alert breathing comfortably and is currently on 2 L current oxygen, patient denies having any significant cough no chest pain, patient denies nausea vomiting or diarrhea and no abdominal pain. Patient white count down to 11.14 creatinine 0.60 abdominal ultrasound did not show any acute process surgical absence of the gallbladder and no biliary duct dilatation Objective - Vital Signs Vital signs: Vital Signs Temp 98.3 F 06/14/24 08:00 Pulse 86 06/14/24 08:00 Resp 20 06/14/24 11:29 BP 141/84 06/14/24 08:00 Pulse Ox 94 L 06/14/24 08:00 FiO2 Intake & Output 06/13/24 06/14/24 06/14/24 18:59 06:59 18:59 Intake Total 450 200 Output Total 400 Balance 450 -200 Intake: Intake, IV Titration 450 Amount ACETAMINOPHEN IV (For NPO 100 ) 1,000 mg In Empty Bag 1 bag @ 400 mls/hr IVPB Q6HR PRN Rx#:[id number] Acyclovir Sodium 900 mg 250 In Sodium Chloride 0.9% 250 ml @ 270 mls/hr IVPB Q8HR [facility] Rx#:[id number] Piperacillin-Tazobactam 3 100 .375 gm In Sodium Chloride 0.9% 100 ml @ 25 mls/hr IVPB Q8HR [facility] Rx# :[id number] Oral 200 Output: Urine 400 Other: Voiding Method External Catheter # Voids 2 1 - Exam GENERAL DESCRIPTION: Middle aged female lying in bed in no distress RESPIRATORY SYSTEM: Unlabored breathing , decreased breath sounds at bases HEART: S1 S2 regular rate and rhythm , ABDOMEN: Soft , no tenderness EXTREMITIES: No edema feet - Labs CBC & Chem 7: 06/15/24 03:38 06/15/24 03:38 Labs: Abnormal Lab Results - Last 24 Hours (Table) 06/14/24 06/14/24 Range/Units 03:05 03:05 WBC 11.14 H (4.50-10.00) X 10*3/uL RBC 3.57 L (4.10-5.20) X 10*6/uL Hgb 10.9 L (12.0-15.0) g/dL Hct 32.7 L (37.2-46.3) % RDW 15.4 H (11.5-14.5) % Plt Count 132 L (140-440) X 10*3/uL Neutrophils # 8.10 H (1.80-7.70) X 10*3/uL Monocytes # 1.74 H (0.20-1.00) X 10*3/uL Sodium 136 L (137-145) mmol/L Potassium 2.7 L* (3.5-5.1) mmol/L Total Bilirubin 1.9 H (0.2-1.3) mg/dL AST 37 H (14-36) U/L Total Protein 5.1 L (6.3-8.2) g/dL Albumin 2.6 L (3.5-5.0) g/dL Microbiology - Last 24 Hours (Table) 06/13/24 05:45 Blood Culture - Preliminary Blood Assessment and Plan (1) AMS (altered mental status) Current Visit: Yes Status: Acute Code(s): R41.82 - ALTERED MENTAL STATUS, UNSPECIFIED SNOMED Code(s): 718482123 (2) Fever of unknown origin Current Visit: Yes Status: Acute Code(s): R50.9 - FEVER, UNSPECIFIED SNOMED Code(s): 5958740 (3) Sepsis Current Visit: No Status: Acute Code(s): A41.9 - SEPSIS, UNSPECIFIED ORGANISM SNOMED Code(s): 00497637 Plan: 1patient with fever tachycardia elevated white count meeting criteria for SIRS/sepsis source questionably encephalitis/meningitis as no obvious focus of infection on initial evaluation as well as investigation or could be related to SBP in this patient did have a history of nonalcoholic cirrhosis and has been out of her lactulose did have hepatic encephalopathy but fever will be very uncommon so we need to rule out infectious etiology, family refused LP 2-patient did have resolution of her fever and the white count is trending down abdominal ultrasound did not show any acute abnormality we will continue with the Zosyn while waiting for the culture to finalize Dictation was produced using [employer] dictation software. please excuse any grammatical, word or spelling errors. Time with Patient: Less than 30
--- NOTE | 2024-06-15 12:38 | P.PN ---
Subjective Progress Note Date: 06/15/24 Principal diagnosis: Reason for follow-up is fever Patient is a 53-year-old female with a past medical history significant for reflux anxiety, nonalcoholic liver disease/cirrhosis patient has been reported to the hospital for evaluation of mental status changes and also have a fever with initial workup negative did have elevated ammonia level LP was refused by the family. On today's evaluation that is 06/15/2024, Patient is afebrile this morning patient denies having any chest pain shortness of breath or cough, the patient is currently on 2 L nasal cannula oxygen, patient denies any abdominal pain no diarrhea no nausea no vomiting, patient is feeling better wants to go home. Patient white count normalized to 6.77 creatinine 1.0 blood culture has been negative so far urine was negative at admission Objective - Vital Signs Vital signs: Vital Signs Temp 97.9 F 06/15/24 07:05 Pulse 76 06/15/24 07:05 Resp 20 06/15/24 07:05 BP 127/73 06/15/24 07:05 Pulse Ox 100 06/15/24 09:03 FiO2 Intake & Output 06/14/24 06/15/24 06/15/24 18:59 06:59 18:59 Intake Total 200 237 200 Output Total 1200 500 Balance -1000 -263 200 Intake: Oral 200 237 200 Output: Urine 1200 500 Other: Voiding Method External Catheter Bedside Commode Bedside Commode External Catheter External Catheter # Bowel Movements 1 - Exam GENERAL DESCRIPTION: Middle aged female up in the chair in no distress RESPIRATORY SYSTEM: Unlabored breathing , decreased breath sounds at bases HEART: S1 S2 regular rate and rhythm , ABDOMEN: Soft , no tenderness EXTREMITIES: Swelling to lower extremity with no significant redness - Labs CBC & Chem 7: 06/15/24 03:38 06/15/24 03:38 Labs: Abnormal Lab Results - Last 24 Hours (Table) 06/15/24 06/15/24 06/15/24 Range/Units 03:38 03:38 03:38 RBC 3.63 L (4.10-5.20) X 10*6/uL Hgb 10.8 L (12.0-15.0) g/dL Hct 33.7 L (37.2-46.3) % RDW 15.3 H (11.5-14.5) % Monocytes # 1.56 H (0.20-1.00) X 10*3/uL Eosinophils # 0.41 H (0.04-0.35) X 10*3/uL Calcium 8.5 L (8.7-10.3) mg/dL Magnesium 1.2 L (1.5-2.4) mg/dL Ammonia 57 H (<30) umol/L Total Protein 5.3 L (6.2-8.2) g/dL Albumin 3.2 L (3.8-4.9) g/dL Albumin/Globulin Ratio 1.52 L (1.60-3.17) Ratio Microbiology - Last 24 Hours (Table) 06/13/24 05:45 Blood Culture - Preliminary Blood Assessment and Plan (1) AMS (altered mental status) Current Visit: Yes Status: Acute Code(s): R41.82 - ALTERED MENTAL STATUS, UNSPECIFIED SNOMED Code(s): 060678770 (2) Fever of unknown origin Current Visit: Yes Status: Acute Code(s): R50.9 - FEVER, UNSPECIFIED SNOMED Code(s): 5912191 (3) Sepsis Current Visit: No Status: Acute Code(s): A41.9 - SEPSIS, UNSPECIFIED ORGANISM SNOMED Code(s): 24363130 Plan: 1patient with fever tachycardia elevated white count meeting criteria for SIRS/sepsis source questionably encephalitis/meningitis as no obvious focus of infection on initial evaluation as well as investigation or could be related to SBP in this patient did have a history of nonalcoholic cirrhosis and has been out of her lactulose did have hepatic encephalopathy but fever will be very uncommon so we need to rule out infectious etiology, family refused LP 2-patient did have resolution of her fever and the white count has normalized culture have been negative so far patient and the wants to go home we will consider short course of oral Ceftin on discharge and close outpatient follow-up discussed with admitting physician Dictation was produced using [employer] software. please excuse any grammatical, word or spelling errors. Time with Patient: Less than 30
--- NOTE | 2024-06-15 12:48 | P.DS ---
Providers Date of admission: 06/12/24 06:35 Expected date of discharge: 06/15/24 Attending physician: Rashida Fleming Consults: 06/12/24 06:18 Consult Physician Routine Consulting Provider: Som Sutherland Consult Reason/Comments: AMS, likely hepatic encephalopathy Do you want consulting provider notified?: Yes 06/12/24 09:41 Consult Physician Routine Consulting Provider: Nanette Levine Consult Reason/Comments: Fever, [place], hepatic encephalopathy ?? cause Do you want consulting provider notified?: Yes 06/12/24 14:49 Consult to Anesthesia Stat Consulting Provider: Anesthesia,Services Consult Reason/Comments: LP/CSF Suspected encephalitis/meningitis Primary care physician: Nato Beck Hospital Course: Discharge diagnoses: Hepatic encephalopathy: Resolved Fevers: Resolved History of portal vein thrombosis History of splenorenal shunt placement Prothrombin gene mutation Anxiety Prior history of smoking Hypomagnesemia: Replaced Monitor vitals and labs--stable Blood culture negative so far Procalcitonin negative Initially received vancomycin Rocephin and acyclovir, now de-escalated to Zosyn Anesthesia consulted for LPpatient declined. Mentation improved Neurology consulted Continue lactulose rifaximin Continue home meds. ID consultedreceived Zosyn during hospitalization, continued on Ceftin 500 mg twice daily for 7 days at discharge. Hospital course: History of present illness; patient is a 53-year-old lady with past medical history significant nonalcoholic cirrhosis, GERD, hepatic vein thrombosis, status post splenorenal shunt placement who presented the ER because of altered mental status. Most of the history is obtained from patient's and EMR according to which patient woke up this morning confused. Patient was not her usual self, harm to this happens when her ammonia levels are high. Patient has not been taking her lactulose for the last few weeks. There was no complaint of any fevers at home. There was no complaint of any complaint of nausea, vomiting abdominal pain. denied patient having any recent episode of chest pain or shortness of breath. There was no recent complaint of any fall. Because of this altered mental status, patient brought to the ER Initial lab work done in the ER showed WBC 12.5, hemoglobin 12.3, platelet count 130, sodium 135, potassium 3.9, BUN 23, creatinine 0.61, glucose 141, bilirubin 1.6, AST 45, ALT 36, ammonia 121, UA negative for infection urine drug screen negative Influenza A not detected Influenza B not detected RSV not detected COVID-19 not detected EKG done in the ER showed heart rate of 109 , no ST segment elevation or depression seen, no T-wave inversions seen. Chest x-ray done in the ER showed diffuse edema or pneumonia CT head done showed no acute intracranial process ER, patient was found to have a fever of 101.2, was tachycardic as well. 06/14--patient was seen and examined today. at bedside. Patient alert oriented x 4. Mentation is better. Patient reported bowel movement. Patient remained afebrile since yesterday. Heart rate 86, respiratory rate 19, blood pressure 141/84, saturating 94% on 2 L. WBCs 11.1, hemoglobin 10.9, platelet 132. Sodium 136 potassium 2.7, BUN 17 creatinine 0.60. Total bilirubin 1.9, downtrending, AST 37 ALT 34 alkaline phosphatase 95. Ammonia yesterday came down to 24 from 121. Blood culture negative so far. Infectious disease following, currently on Zosyn. Was initially on broad-spectrum antibiotics. Family declined LP. 06/15--patient was seen and examined today. Alert and oriented x 4. at bedside. No further episodes of fevers, currently on Zosyn. Vital stable. WBCs unremarkable 6.7, hemoglobin stable 10.8, platelet 157. BMP unremarkable. Magnesium 1.2, replaced. Ammonia 57. Discussed with infectious disease, recommended to continue Ceftin 500 mg twice daily for 7 days. Patient condition and vital stable at discharge. Please refer to med rec and assessment plan for further details. Follow-up with PCP in 1 week. PHYSICAL EXAMINATION: GENERAL: The patient is A&O x4, NAD HEENT: EOMI, Sclerae anicteric, Moist Mucous membranes Neck: Supple, Non tender, No JVD PULMONARY: Equal breath souds B/L, No wheezing, No crackles. CARDIOVASCULAR: S1, S2 present. No murmurs, rubs, or gallops. ABDOMEN: Soft, nontender, nondistended, normoactive bowel sounds. No guarding or rebound tenderness. MUSCULOSKELETAL: No edema, No cyanosis. No clubbing. Normal ROM. Intact peripheral pulses. NEUROLOGICAL: CN 2-12 grossly intact. No FND SKIN: No rashes. Dictation was produced using [employer] dictation software. please excuse any grammatical, word or spelling errors. Attestation: I have personally seen and examined the patient with Resident, eddy ewed the documentation and participated and agree with the assessment and plan as written. Sergio Diaz MD Patient Condition at Discharge: Good Plan - Discharge Summary Discharge Rx Participant: No New Discharge Prescriptions: New cefuroxime axetiL [Ceftin] 500 mg PO BID 7 Days #14 tab Continue Omeprazole [PriLOSEC] 20 mg PO DAILY Cyanocobalamin (Vitamin B-12) [Vitamin B-12] 1,000 mcg PO DAILY Spironolactone [Aldactone] 25 mg PO DAILY Rifaximin [Xifaxan] 550 mg PO BID Montelukast [Singulair] 10 mg PO HS Gabapentin 300 mg PO TID Fluticasone/Umeclidin/Vilanter [Trelegy Ellipta 100-62.5-25] 1 puff INHALATION RT-DAILY Magnesium Oxide [Magox 400] 400 mg PO BID Aspirin EC [Ecotrin Low Dose] 81 mg PO DAILY Semaglutide [Wegovy] 1 mg SQ CASAS PARoxetine HCL [PARoxetine HCL Cr] 25 mg PO DAILY Bumetanide [BUMEX] 2 mg PO DAILY Fexofenadine HCl [Ann Marie Allergy] 180 mg PO DAILY Vitamin E (Dl,Tocopheryl Acet) [Vitamin E (400 Iu = 180 mg)] 400 unit PO DAILY Albuterol Inhaler [Ventolin Hfa Inhaler] 2 puff INHALATION RT-Q4H PRN PRN Reason: Shortness Of Breath Lactulose 10 gm PO DAILY Cholecalciferol [Vitamin D3 (25 Mcg = 1000 Iu)] 25 mcg PO DAILY Potassium Chloride [Klor-Con 10 ER] 10 meq PO BID-W/MEALS Ibuprofen [Motrin] 600 mg PO Q6H PRN PRN Reason: Pain Discharge Medication List Cyanocobalamin (Vitamin B-12) [Vitamin B-12] 1,000 mcg PO DAILY 12/17/16 [History] Omeprazole [PriLOSEC] 20 mg PO DAILY 12/17/16 [History] Bumetanide [BUMEX] 2 mg PO DAILY 12/05/23 [History] Fluticasone/Umeclidin/Vilanter [Trelegy Ellipta 100-62.5-25] 1 puff INHALATION RT-DAILY 12/05/23 [History] Gabapentin 300 mg PO TID 12/05/23 [History] Magnesium Oxide [Magox 400] 400 mg PO BID 12/05/23 [History] Montelukast [Singulair] 10 mg PO HS 12/05/23 [History] PARoxetine HCL [PARoxetine HCL Cr] 25 mg PO DAILY 12/05/23 [History] Rifaximin [Xifaxan] 550 mg PO BID 12/05/23 [History] Spironolactone [Aldactone] 25 mg PO DAILY 12/05/23 [History] Albuterol Inhaler [Ventolin Hfa Inhaler] 2 puff INHALATION RT-Q4H PRN 01/16/24 [History] Fexofenadine HCl [Ann Marie Allergy] 180 mg PO DAILY 01/16/24 [History] Lactulose 10 gm PO DAILY 01/16/24 [History] Vitamin E (Dl,Tocopheryl Acet) [Vitamin E (400 Iu = 180 mg)] 400 unit PO DAILY 01/16/24 [History] Aspirin EC [Ecotrin Low Dose] 81 mg PO DAILY 06/12/24 [History] Cholecalciferol [Vitamin D3 (25 Mcg = 1000 Iu)] 25 mcg PO DAILY 06/12/24 [History] Ibuprofen [Motrin] 600 mg PO Q6H PRN 06/12/24 [History] Potassium Chloride [Klor-Con 10 ER] 10 meq PO BID-W/MEALS 06/12/24 [History] Semaglutide [Wegovy] 1 mg SQ CASAS 06/12/24 [History] cefuroxime axetiL [Ceftin] 500 mg PO BID 7 Days #14 tab 06/15/24 [Rx] Follow up Appointment(s)/Referral(s): None,Stated [REFERRING] - 1-2 days Patient Instructions/Handouts: Hepatic Encephalopathy (DC) Discharge Disposition: HOME SELF-CARE
--- NOTE | 2024-06-15 14:07 | CDI ---
Documentation Clarification Form Date: 06/15/2024 01:47:55 PM From: Estella Lagunas RN, CCDS Phone: [phone] Admit Date: 06/12/2024 06:35:00 AM Patient Name: Umu Mejia Visit Number: [id number] Discharge Date: ATTENTION: The Clinical Documentation Specialists (CDI) and [facility] Coding Staff appreciate your assistance in clarifying documentation. Please respond to the clarification below the line at the bottom and electronically sign. The CDI & [facility] Coding staff will review the response and follow-up if needed. Please note: Queries are made part of the Legal Health Record. If you have any questions, please contact the author of this message via ITS. Doctor. Sergio Diaz The patient has sepsis documented in the ID consult and subsequent progress notes, with fever tachycardia elevated white count meeting SIRS criteria, clinical indicators of sepsis, on 06/12/24. Based on this information and the findings below, is there an additional diagnosis that is clinically appropriate for this patient? History/Risk Factors: GERD/Reflux, nonalcoholic Liver Disease, Former smoker Clinical Indicators: Per ID: 53-year-old female with fever tachycardia elevated white count meeting criteria for SIRS/sepsis source questionably encephalitis/meningitis as no obvious focus of infection on initial evaluation WBC/Left Shift: WBC 12.5 Neutrophils 10.7 C-Reactive Protein 3.20 Blood cultures: Pending: (showing no growth after 48 hrs.) 06/12 VS on admission: 152/74 109 18 101.2 94% RA UA negative for infection urine drug screen negative Influenza A not detected Influenza B not detected RSV not detected COVID-19 not detected 06/12 CXR: 1.Low lung volume. 2.Diffuse edema or pneumonia Treatment: Zosyn 3.375 IVPB Q 8 HRS Vancomycin HCL 2,000 MG IVPB PTD 06/12-06/13 Is there an additional diagnosis that is clinically appropriate for this patient? [x ] Sepsis, present on admission, Unknown infection source (refused LP) [ ] Sepsis ruled out [ ] SIRS, without underlying infectious process [ ] No additional diagnosis/not clinically significant [ ] Other, please specify [ ] Unable to determine SIRS Criteria: 2 or more of the following may indicate SIRS -Core Temperature < 96.8F(36C) or > 101.3F (38.5C) -Heart Rate Tachycardia > 2 SD above normal for age or Bradycardia <10th percentile for age -Respiratory Rate > 2 SD above normal for age or mechanical ventilation -White Blood Cell Count Elevated or depressed for age or > 10% bands (not due to chemo) (Template Last Revised: April 2020) MTDD
--- NOTE | 2024-06-15 15:45 | P.PN ---
Subjective Progress Note Date: 06/15/24 Patient was seen for a follow-up. Patient's is also present by the bedside. Patient's mentation is back to normal. She denies any headache at all. Patient states that she is getting magnesium and she will be going home. Patient states that she has been taking her lactulose regularly. Patient mentions that she is not a candidate for liver transplant, because of her history of splenorenal shunt. She does not have means to support it. She is trying to lose weight with Wegovy and is helping a lot. Infectious disease has recommended lumbar puncture but family refused it. Objective - Vital Signs Vital signs: Vital Signs Temp 97.9 F 06/15/24 07:05 Pulse 76 06/15/24 07:05 Resp 20 06/15/24 07:05 BP 127/73 06/15/24 07:05 Pulse Ox 100 06/15/24 09:03 FiO2 Intake & Output 06/14/24 06/15/24 06/15/24 18:59 06:59 18:59 Intake Total 200 237 200 Output Total 1200 500 Balance -1000 -263 200 Intake: Oral 200 237 200 Output: Urine 1200 500 Other: Voiding Method External Catheter Bedside Commode Bedside Commode External Catheter External Catheter # Bowel Movements 1 - Exam Mental status, speech and language functions are normal. Patient is sitting comfortably in the chair. She is fully oriented. No headache. Mentation normal. Examination nonfocal. - Labs CBC & Chem 7: 06/15/24 03:38 06/15/24 03:38 Labs: Abnormal Lab Results - Last 24 Hours (Table) 06/15/24 06/15/24 06/15/24 Range/Units 03:38 03:38 03:38 RBC 3.63 L (4.10-5.20) X 10*6/uL Hgb 10.8 L (12.0-15.0) g/dL Hct 33.7 L (37.2-46.3) % RDW 15.3 H (11.5-14.5) % Monocytes # 1.56 H (0.20-1.00) X 10*3/uL Eosinophils # 0.41 H (0.04-0.35) X 10*3/uL Calcium 8.5 L (8.7-10.3) mg/dL Magnesium 1.2 L (1.5-2.4) mg/dL Ammonia 57 H (<30) umol/L Total Protein 5.3 L (6.2-8.2) g/dL Albumin 3.2 L (3.8-4.9) g/dL Albumin/Globulin Ratio 1.52 L (1.60-3.17) Ratio Microbiology - Last 24 Hours (Table) 06/13/24 05:45 Blood Culture - Preliminary Blood Assessment and Plan Assessment: * Altered mental status, likely due to acute hepatic encephalopathy. Patient's ammonia level 121 on admission. Mentation back to normal. * Febrile illness. No evidence of meningitis encephalitis. * Hepatic cirrhosis * Obesity * History of NAFLD * History of splenorenal shunt. Plan: * Continue lactulose. * Ammonia was 24 yesterday, today has jumped up to 57. * Treatment of hepatic encephalopathy as per IM. * Headache has resolved. No evidence of meningitis/encephalitis. * CT head showed no acute process. Paranasal sinuses are mostly clear. * Patient's influenza screen, RSV and coronavirus PCR negative. * Neurologically clear for discharge. We will sign off.
== END 2024-06-15 18:39 | disposition home or self-care (01) | DRG 441 ==
LOC: EC 04:33 → 4SSUR 06:35
PROVIDERS: ADMIT Hospitalist; ATTEND Hospitalist
DX: K76.82 Hepatic encephalopathy (principal); A41.89 Other specified sepsis; Z68.43 Body mass index [BMI] 50.0-59.9, adult; J44.9 Chronic obstructive pulmonary disease, unspecified; K74.60 Unspecified cirrhosis of liver; D68.52 Prothrombin gene mutation; E66.9 Obesity, unspecified; F41.9 Anxiety disorder, unspecified; E83.42 Hypomagnesemia; E87.70 Fluid overload, unspecified; R50.9 Fever, unspecified; K76.0 Fatty (change of) liver, not elsewhere classified; Z96.653 Presence of artificial knee joint, bilateral; Z87.891 Personal history of nicotine dependence; Z79.899 Other long term (current) drug therapy; Z79.82 Long term (current) use of aspirin
CPT/HCPCS: 36415; 70450; 71045; 76700; 80053; 80306; 80320; 81003; 82140; 83605; 83735; 83880; 84145; 85025; 85610; 85730; 86140; 87040; 87636; 93005; 94640; 94760; 96365; 96375; 99285

== ENCOUNTER → 2024-10-14 | Outpatient (CLI) | payer BC, MEDICARE | END | disposition home or self-care (01) | LOC: LABWHC1 13:25 | PROVIDERS: ATTEND Internal Medicine | DX: K76.82 Hepatic encephalopathy (principal) | CPT/HCPCS: 36415; 82140 ==